=== PATIENT | female | born 1965 | race Caucasian/White ===

== ENCOUNTER 2016-08-07 17:07 | Inpatient (IN) | payer OTHER ==
--- NOTE | 2016-08-07 17:23 | CPEKG ---
Heart Rate: 108 RR Interval: 556 P-R Interval: 164 QRSD Interval: 78 QT Interval: 336 QTC Interval: 451 P [place]: 59 QRS [place]: 141 T Wave [place]: -11 EKG Severity - ABNORMAL ECG - EKG Impression: SINUS TACHYCARDIA EKG Impression: LEFT POSTERIOR FASCICULAR BLOCK EKG Impression: NONSPECIFIC T ABNORMALITIES, ANTERIOR LEADS Electronically Signed By: Eli Downs 07-Aug-2016 21:41:32
[2016-08-07] MEDS ORDERED: NS 1,000 ML BAG *FOR SEPSIS ORDER SET ONLY IV ONE (17:33)
--- NOTE | 2016-08-07 17:35 | EDPHY ---
H & P Time Seen by Provider: 08/07/16 17:20 HPI/ROS: CHIEF COMPLAINT: Hypoxia HISTORY OF PRESENT ILLNESS: The patient is a 51-year-old female sent from Dr. Chelo Hardwick's office for hypoxia. She is also hypotensive and tachycardic at triage. She has a history of recently over coming C difficile with persistent diarrhea as well as thrombophlebitis were treated with anti-inflammatories only. She states that over the last couple of weeks she has become progressively short of breath. She did have a severe Charley horse in her left thigh 4 days ago. She denies having any chest pain. She denies fevers or cough. She denies abdominal pain. She states that her chronic diarrhea stopped Last night. she does not have any history of cardiac or pulmonary disease. REVIEW OF SYSTEMS: Constitutional: Generally weak EENTM: denies: blurred vision, double vision, nose congestion Respiratory: See HPI Cardiac: denies: chest pain, irregular heart rate, lightheadedness, palpitations Gastrointestinal/Abdominal: denies: abdominal pain, diarrhea, nausea, vomiting, blood streaked stools Genitourinary: denies: dysuria, frequency, hematuria, pain Musculoskeletal: denies: joint pain, muscle pain Skin: denies: lesions, rash, jaundice, bruising Neurological: denies: headache, numbness, paresthesia, tingling, dizziness, weakness Hematologic/Lymphatic: denies: blood clots, easy bleeding, easy bruising Immunologic/allergic: denies: HIV/AIDS, transplant EXAM: GENERAL: Pale, dehydrated HEAD: Atraumatic, normocephalic. EYES: Pupils equal round and reactive to light, extraocular movements intact, sclera anicteric, conjunctiva are normal. ENT: Dry mucous membranes, TMs normal, nares patent, oropharynx clear without exudates. NECK: Normal range of motion, supple without lymphadenopathy or JVD. LUNGS: Breath sounds clear to auscultation bilaterally and equal. No wheezes rales or rhonchi. HEART: Regular rate and rhythm without murmurs, rubs or gallops. ABDOMEN: Soft, nontender, normoactive bowel sounds. No guarding, no rebound. No masses appreciated. BACK: No CVA tenderness, no spinal tenderness, step-offs or deformities EXTREMITIES: Normal range of motion, no pitting or edema. No clubbing or cyanosis. NEUROLOGICAL: Cranial nerves II through XII grossly intact. Normal speech, normal gait. 5/5 strength, normal movement in all extremities, normal sensation PSYCH: Normal mood, normal affect. SKIN: Warm, dry, normal turgor, no visible rashes or lesions. Source: Patient, Family, RN/MD, Old records Exam Limitations: No limitations - Personal History Tetanus Vaccine Date: < 10 years - Medical/Surgical History Hx Asthma: No Hx Chronic Respiratory Disease: No Hx Diabetes: No Hx Cardiac Disease: No Hx Renal Disease: No Hx Cirrhosis: No Hx Alcoholism: No Hx HIV/AIDS: No Hx Splenectomy or Spleen Trauma: No Other PMH: benign lumpectomy. low iron. c dif - Family History Significant Family History: Hypertension - Social History Smoking Status: Former smoker Alcohol Use: None Drug Use: None Constitutional: Initial Vital Signs Temperature (C) 36.6 C 08/07/16 17:39 Heart Rate 109 H 08/07/16 17:39 Respiratory Rate 25 H 08/07/16 17:39 Blood Pressure 96/60 L 08/07/16 17:39 O2 Sat (%) 70 L 08/07/16 17:39 O2 Delivery Mode Oxymask O2 (L/minute) 15 Allergies/Adverse Reactions: No Known Allergies Allergy (Verified 04/24/16 12:33) Home Medications: Medication Instructions Recorded ALPRAZolam [Xanax 0.5 MG (*)] 0.5 mg PO PRN PRN 02/21/16 Herbals/Supplements -Info Only 1 ea PO DAILY 02/21/16 Multivitamins [Multivitamin (*)] 1 each PO DAILY 02/21/16 Prochlorperazine Maleate 10 mg PO TID PRN 08/07/16 [Compazine 10mg (*)] Medical Decision Making - Diagnostics EKG Interpretation: An EKG obtained and was read and documented in trace view. Please see trace view for full reading and report. Sinus tachycardia, diffuse T-wave inversions consistent with right heart strain. Imaging: X-ray: chest x-ray was obtained. I viewed the images myself on the PACS system. My interpretation of the images is: Cantrell's hump. The radiologist interpretation is pulmonary ischemic wedge. Results: CT scan of the chest angiogram was obtained. The results of the study are bilateral central pulmonary embolism with infarction. The study was read by Dr. Rickey Richards. I viewed the images myself on the PACS system. Procedures: Procedure: Ultrasound guidance: Using the linear probe covered in a sterile sheath, a short axis of the vein was obtained. The vein was completely compressible and was identified as separate from the adjacent non-compressible arterial structure. Under real-time guidance, the introducer needle was observed up to the vein, and then punctured it. These images were saved on the database. Central line placement: The indication for the procedure was hypotension, need for tPA. After verbal informed consent from patient; the risks were explained including bleeding, infection, and collapsed lung. Maximal sterile barrier technique was uses including cap, gown, sterile gloves, large sheet, hand washing and chlorhexidine prep. The area anesthetized with 1% lidocaine. The right IJ was punctured with a 19 gauge finder needle, then a wire introducer was placed, a triple-lumen was placed using Seldinger technique. There were no complications. Blood return low pressure, dark blood. The patient tolerated procedure well. CXR results: Line in good place as interpreted by myself. Radiologist interpretation is pending. The procedure was performed by myself. ED Course/Re-evaluation: 5:59 p.m. the patient needs severe sepsis criteria because of her lactate. She is receiving her fluid bolus currently. She is refusing a central line at this point. We will see how her vital signs look after her fluid bolus. We are looking for a 2nd IV. 6:10 p.m. after reviewing the patient's x-ray became concerned for PE and this is confirmed by radiology. I spoke with Dr. Emeka Singleton. We plan to administer tPA. Since the patient is pseudo stable we will attempt to obtain a CT scan 1st. She remains tachycardic at 110 and hypotensive 90/60. She is mentating well and breathing comfortably on face mask. 7:20 p.m. we discussed the risks and benefits of tPA. She and her friends agree with administration. She understands the risk of hemorrhagic stroke. I do this think that this is a life-saving measure to treat her bilateral central PEs. Dr. Emeka Singleton agrees. She does not have any hard contraindications. Differential Diagnosis: Partial list of the Differential diagnosis considered include but were not limited to; pulmonary lungs line, pneumonia, sepsis and although unlikely based on the history and physical exam, I also considered acute coronary disease , arrhythmia, dissection. Critical Care Time: I spent a total of 45 minutes of critical care time in obtaining history, performing a physical exam, bedside monitoring of interventions, collecting and interpreting tests and discussion with consultants but not including time spent performing procedures. - Data Points Laboratory Results: Laboratory Results 08/07/16 17:31 08/07/16 17:31 08/07/16 17:31 WBC 14.96 H 10^3/uL (3.80-9.50) RBC 3.47 L 10^6/uL (4.18-5.33) Hgb 10.8 L g/dL (12.6-16.3) Hct 33.2 L % (38.0-47.0) MCV 95.7 fL (81.5-99.8) MCH 31.1 pg (27.9-34.1) MCHC 32.5 g/dL (32.4-36.7) RDW 17.2 H % (11.5-15.2) Plt Count 338 10^3/uL (150-400) MPV 10.8 fL (8.7-11.7) Neut % (Auto) 76.0 H % (39.3-74.2) Lymph % (Auto) 14.6 L % (15.0-45.0) [place] % (Auto) 8.6 % (4.5-13.0) Eos % (Auto) 0.0 L % (0.6-7.6) Baso % (Auto) 0.4 % (0.3-1.7) Nucleat RBC Rel Count 0.1 % (0.0-0.2) Absolute Neuts (auto) 11.37 H 10^3/uL (1.70-6.50) Absolute Lymphs (auto) 2.18 10^3/uL (1.00-3.00) Absolute Monos (auto) 1.29 H 10^3/uL (0.30-0.80) Absolute Eos (auto) 0.00 L 10^3/uL (0.03-0.40) Absolute Basos (auto) 0.06 10^3/uL (0.02-0.10) Absolute Nucleated RBC 0.02 H 10^3/uL (0-0.01) Immature Gran % 0.4 % (0.0-1.1) Immature Gran # 0.06 10^3/uL (0.00-0.10) PT 16.7 H SEC (12.0-15.0) INR 1.35 H (0.83-1.16) APTT 27.8 SEC (23.0-38.0) VBG Lactic Acid 3.9 H mmol/L (0.7-2.1) Sodium 136 mEq/L (134-144) Potassium 4.1 mEq/L (3.5-5.2) Chloride 104 mEq/L (97-110) Carbon Dioxide 20 L mEq/l (22-31) Anion Gap 12 mEq/L (8-16) BUN 11 mg/dL (7-23) Creatinine 0.7 mg/dL (0.6-1.0) Estimated GFR > 60 Glucose 110 H mg/dL (70-100) Calcium 7.6 L mg/dL (8.5-10.4) Total Bilirubin 0.9 mg/dL (0.1-1.4) Medications Given: Discontinued Medications Alteplase, Recombinant (Activase) 100 mg IVP EDNOW ONE Stop: 08/07/16 18:15 Last Admin: 08/07/16 19:12 Dose: Not Given Alteplase, Recombinant 100 mg/ (Sodium Chloride) 200 mls @ 100 mls/hr IV EDNOW ONE PRN Reason: 50 MG/HR Stop: 08/07/16 20:41 Last Admin: 08/07/16 19:30 Dose: 200 mls Sodium Chloride (Ns *For Sepsis Order Set Only*) 0 ml IV EDNOW ONE PRN Reason: Protocol Stop: 08/07/16 17:34 Last Admin: 08/07/16 18:21 Dose: 2,070 ml Departure - Departure Disposition: [facility] Acute Clinical Impression: Dehydration Pulmonary embolism Qualifiers: Pulmonary embolism type: other Chronicity: acute Acute cor pulmonale presence: with acute cor pulmonale Qualifier Code: (I26.09) Other pulmonary embolism with acute cor pulmonale Condition: Fair
[2016-08-07 17:46] LABS: % IMMATURE GRANULYOCYTES 0.4 % (0.0-1.1); ABSOLUTE IMMATURE GRANULOCYTES 0.06 10^3/uL (0.00-0.10); ABSOLUTE NRBC COUNT 0.02 10^3/uL (0-0.01); ADD DIFF? NO; ADD MORPH? NO; ADD SCAN? NO; ATYPICAL LYMPHOCYTE FLAG 40 (0-99); FRAGMENT RBC FLAG 0 (0-99); HEMATOCRIT 33.2 % (38.0-47.0); HEMOGLOBIN 10.8 g/dL (12.6-16.3); LEFT SHIFT FLG 0 (0-99); LIPEMIA HEMOLYSIS FLAG 80 (0-99); MEAN CELL HEMOGLOBIN 31.1 pg (27.9-34.1); MEAN CELL HEMOGLOBIN CONCENTR. 32.5 g/dL (32.4-36.7); MEAN CELL VOLUME 95.7 fL (81.5-99.8); MEAN PLATELET VOLUME 10.8 fL (8.7-11.7); NRBC-AUTO% 0.1 % (0.0-0.2); PLATELET CLUMPS FLAG 10 (0-99); PLATELET COUNT 338 10^3/uL (150-400); RED BLOOD CELL COUNT 3.47 10^6/uL (4.18-5.33); RED CELL DISTRIBUTION WIDTH 17.2 % (11.5-15.2)
[2016-08-07 17:52] LABS: INR 1.35 (0.83-1.16); PROTIME(PATIENT) 16.7 SEC (12.0-15.0)
[2016-08-07 17:53] LABS: APTT 27.8 SEC (23.0-38.0)
[2016-08-07 18:06] LABS: ANION GAP 12 mEq/L (8-16); BILIRUBIN,TOTAL 0.9 mg/dL (0.1-1.4); CALCIUM 7.6 mg/dL (8.5-10.4); CARBON DIOXIDE 20 mEq/l (22-31); CHLORIDE 104 mEq/L (97-110); CREATININE 0.7 mg/dL (0.6-1.0); GLOMERULAR FILTRATION RATE > 60; GLUCOSE 110 mg/dL (70-100); POTASSIUM 4.1 mEq/L (3.5-5.2); SODIUM 136 mEq/L (134-144)
--- NOTE | 2016-08-07 18:12 | DX ---
Chest Single View August 07, 2016 at 1759 hours History: Meets sepsis criteria, suspected infection, hypoxia, irregular heartbeat, previous deep ruddy ous thrombosis. Comparison: January 2016. Findings: In the lateral aspect of the right midlung field, there is a peripheral slightly wedge-sha ped 3-cm opacity, which is new since previous studies. The left lung appears clear. The heart is no rmal in size. No pleural effusion or pneumothorax. Impressions 1. Right midlung field lateral pleural-based wedge-shaped opacity, which may represent pulmonary inf arct or pneumonitis. 2. Recommend CT chest, with contrast . Findings and recommendations discussed with Emergency Department physician, Dr. Cao, at 1800 hour s on August 07, 2016. Final report concurs with initial preliminary interpretation.
[2016-08-07] MEDS ORDERED: ALTEPLASE 50 MG/50 ML VIAL IVP ONE (18:14)
[2016-08-07] MEDS ORDERED: IOPAMIDOL (ISOVUE 370) 75 ML BTL IV ONE (18:32)
[2016-08-07 18:40] LABS: LACGHOST ORDER
[2016-08-07] MEDS ORDERED: ALTEPLASE 100 MG in NS 100 ML IV ONE (18:42)
--- NOTE | 2016-08-07 18:53 | DX ---
Portable Chest at 1840 hours History: Check central line placement. Comparison: Portable chest same day at 1759. Findings: There has been interval placement of a right internal jugular central venous catheter with the tip at the cavoatrial junction good position. Focal peripheral consolidation likely in the super olateral right middle lobe is unchanged. There is no pneumothorax. Heart size is normal. The bones ar e stable. Impression: 1. Right internal jugular central venous catheter in good position with no visible complication. 2. Stable focal right middle lobe consolidation, which could be related to pneumonia, infarct, or les s likely mass. The patient is scheduled for CT chest.
[2016-08-07] MEDS ORDERED: ONDANSETRON DISINTEGRATING 4 MG TAB PO PRN (19:38)
[2016-08-07] MEDS ORDERED: ONDANSETRON 4 MG/2 ML VIAL IVP PRN (19:38)
[2016-08-07] MEDS ORDERED: ACETAMINOPHEN 325 MG TAB PO PRN (19:38)
--- NOTE | 2016-08-07 19:54 | CT ---
CT Pulmonary Angiogram Clinical Indications: Chest pain, hypoxia, and shortness of breath in a 51-year-old female; evaluate for pulmonary embolic disease. Technique: Thinly collimated multidetector helical CT imaging was performed through the chest while 90 mL of Isovue-370 were injected intravenously, without complication. The images were obtained at 4 -mm thickness and reconstructed at 1.5-mm thickness. Sagittal and coronal reconstructions were perfo rmed. The examination is reviewed on the workstation by the interpreting physician at multiple windo w/level settings. Dose reduction techniques were utilized. Findings Chest: There is a moderate right pleural effusion. There is a focal wedge-shaped area of alveolar o pacification in the lateral aspect of the right middle lobe, which may represent an evolving pulmonar y infarct. Additionally, there are other smaller scattered areas of peripheral opacities seen bilate rally. Heart size is normal. A right internal jugular catheter is seen, with the tip projecting machelle r the cavoatrial junction. No pericardial effusion is seen. Equivocally enlarged hilar and mediasti nal lymph nodes are noted. There are no masses or noncalcified pulmonary nodules. There is diffuse low-attenuation of the liver suggesting steatosis. CT Pulmonary Angiogram: The pulmonary arterial system is well opacified. Extensive intraluminal fi lling defects are seen involving central and more peripheral pulmonary arteries bilaterally consisten t with extensive pulmonary embolic disease. The thoracic aorta has a normal contour, without evidenc e of aneurysm or dissection. Impressions 1. Extensive bilateral pulmonary embolic disease. 2. Alveolar opacities bilaterally, most prominent in the right middle lobe, could reflect evolving p ulmonary infarcts. 3. Suspect hepatic steatosis. 4. See above report for additional findings. A preliminary report was called to Dr. Kendall Cao at 1930 hours in the Emergency Department.
--- NOTE | 2016-08-07 20:39 | GHP ---
[f rep st] HISTORY AND PHYSICAL DATE OF ADMISSION: 08/07/2016 CHIEF COMPLAINT: Shortness of breath. HISTORY OF PRESENT ILLNESS: This is a 51-year-old female, sent in by her primary care physician, for shortness of breath. She tells me this has been going on for awhile, meaning months. She has no chest pain. She notes that she had a "charley horse" in her left leg a few days ago, where everything felt numb below her knee. This has since resolved. She otherwise notes mild swelling in her bilateral legs, which has also been present for some time. In her primary care physician's office, she was found to have an oxygen saturation of 62% on room air with significant tachycardia rates around 120 or 130. PAST MEDICAL/SURGICAL HISTORY: 1. History of colitis. She has been treated for C difficile, as well as parasite infections. This was associated with initially significant bleeding requiring a transfusion last summer. 2. Anal fissures, as well as fistula, status post repair by Dr. Aburto. 3. Anemia. MEDICATIONS: Please see medication reconciliation. ALLERGIES: None. FAMILY HISTORY: Crohn disease and heart failure. SOCIAL HISTORY: She never used drugs, alcohol, or tobacco. 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 REVIEW OF SYSTEMS: A 10-point review of systems is conducted and is negative except per HPI. PHYSICAL EXAM: VITAL SIGNS: Blood pressure is 91/60, heart rate initially was 109, initial respirations were 25, saturating at 70% on 4 L. Temperature is 36.6. GENERAL: The patient is a pleasant female, who appears in moderate respiratory distress with a face mask. HEENT: Shows head to be normocephalic, atraumatic. CARDIOVASCULAR: Regular rate and rhythm. No murmurs, rubs, or gallops. PULMONARY: Shows her to be in respiratory distress. Otherwise, she is clear to auscultation bilaterally. ABDOMEN: Soft, nontender, nondistended. SKIN: No rash. EXAM: There is no [place]. NEUROLOGIC EXAM: Shows her to be alert and oriented x3. She is moving all extremities. PSYCHIATRIC EXAM: Shows normal mood and affect. LABS: White count is 14.9. INR is 1.35. Lactate 3.9. Basic metabolic panel shows a bicarbonate of 20, otherwise relatively unremarkable. DATA: 1. EKG, which I personally viewed and interpreted, shows she has a right axis deviation. She has inverted T-waves diffusely in the precordial leads. 2. Chest x-ray, which I reviewed and interpreted, shows likely Cantrell hump in the right lung. 3. CT pulmonary angiogram shows extensive bilateral pulmonary embolic disease. I discussed this with both Dr. Cao, as well as Dr. Hardwick. With Dr Cao, we discussed tPA treatment. IMPRESSION AND PLAN: This is a 51-year-old female, critically ill from a pulmonary embolus. 1. Pulmonary embolus: Agree with tPA, given the severity of her clinical presentation. This is being administered right now. I discussed risks and benefits of this, including bleeding in the setting of having had recent colon bleeding about 6 months ago. Also discussed intraparenchymal bleeding. She wishes to proceed. Once this is done, we will need to check a PTT, and when this is lower than 2 times the upper limit of normal, we will start a heparin drip. She will be monitored closely in the ICU. Pulmonology will consult. 2. Nonspecific colitis: She is due for colonoscopy at some point, which she has refused in the past. We will follow her symptoms and see how she does with the above-mentioned disease. 3. Anemia: Hemoglobin is 10.8. This is at her baseline. CODE STATUS: Full. TIME: I spent 60 minutes of floor critical care time caring for this patient. /[id number]/MODL MTDD
[2016-08-07] MEDS ORDERED: NS BOLUS 1000 ML (Wide open) IV ONE (22:00)
[2016-08-07 22:07] LABS: INR 1.62 (0.83-1.16); PROTIME(PATIENT) 19.3 SEC (12.0-15.0)
[2016-08-07] MEDS: NS 1,000 ML IV SCH (22:22)
[2016-08-07 22:24] LABS: TROPONIN I 0.112 ng/mL (0-0.034)
[2016-08-07] MEDS ORDERED: NS 1,000 ML IV ONE (22:32)
[2016-08-07] MEDS: HEPARIN/DEXTROSE 500 ML IV SCH (23:00)
[2016-08-08] MEDS ORDERED: DOBUTamine/DEXTROSE 250 ML IV SCH (01:00)
[2016-08-08] MEDS: NOREPINEPHRINE BITARTRATE 4 MG in D5W 500 ML IV SCH ×4 (01:44→20:38)
[2016-08-08 05:39] LABS: % IMMATURE GRANULYOCYTES 0.8 % (0.0-1.1); ADD DIFF? NO; ADD MORPH? NO; ADD SCAN? NO; ATYPICAL LYMPHOCYTE FLAG 50 (0-99); FRAGMENT RBC FLAG 0 (0-99); HEMATOCRIT 24.6 % (38.0-47.0); HEMOGLOBIN 7.7 g/dL (12.6-16.3); LEFT SHIFT FLG 0 (0-99); LIPEMIA HEMOLYSIS FLAG 80 (0-99); MEAN CELL HEMOGLOBIN 30.8 pg (27.9-34.1); MEAN CELL HEMOGLOBIN CONCENTR. 31.3 g/dL (32.4-36.7); MEAN CELL VOLUME 98.4 fL (81.5-99.8); MEAN PLATELET VOLUME 10.3 fL (8.7-11.7); PLATELET CLUMPS FLAG 20 (0-99); PLATELET COUNT 278 10^3/uL (150-400); RED CELL DISTRIBUTION WIDTH 17.1 % (11.5-15.2)
[2016-08-08 05:55] LABS: ANION GAP 5 mEq/L (8-16); CALCIUM 6.3 mg/dL (8.5-10.4); CARBON DIOXIDE 20 mEq/l (22-31); CHLORIDE 113 mEq/L (97-110); CREATININE 0.6 mg/dL (0.6-1.0); GLOMERULAR FILTRATION RATE > 60; GLUCOSE 104 mg/dL (70-100); POTASSIUM 3.3 mEq/L (3.5-5.2); SODIUM 138 mEq/L (134-144)
[2016-08-08 06:07] LABS: TROPONIN I 0.103 ng/mL (0-0.034)
[2016-08-08] MEDS: HEPARIN 10,000 UNIT/10 ML MDV IVP PRN ×3 (06:11→18:17)
[2016-08-08] MEDS: NS 1,000 ML IV SCH ×3 (07:45→23:31)
--- NOTE | 2016-08-08 09:53 | ECHO ---
[id number] + + [address] : : [place] [address] : : [phone] + + Adult Echocardiographic Report + ----+ :Name: EROS MOORE JStudy Date: 08/08/2016 12:02 AM : : Hospital Admission Number: [id number] Location: 257: :: 1965 Gender: Female : :Age: 51 yrs Race: WH : :Reason For Study: Hypotension/PE : + ----+ MMode/2D Measurements & Calculations IVSd: 0.64 cm LVIDd: 4.0 cm FS: 49.5 % Ao root diam: 3.4 cm LVPWd: 0.98 cm LVIDs: 2.0 cm EDV(Teich): 71.7 ml ESV(Teich): 13.4 ml EF(Teich): 81.3 % Normal Measurement Values: + + :LVIDd (3.5-5.7cm) IVSd (0.6-1.1cm) LVPWd (0.6-1.1cm) Aortic Root (2.0-3.7cm)Left Atrium (1.5-4.0cm): :LV Vol(d) (76-115ml) LV Vol(s) (29-48ml) Ejec Fraction (50-65%)PV Dimitris (0.6- 1.2m/s) TV Dimitris (0.4-1.0m/s) : :MV E Dimitris (0.8-1.0m/s)MV A Dimitris (0.3-1.0m/s)LVOT Dimitris (0.7-1.2m/s) Asc Ao Dimitris ( 0.9-1.8m/s) : + + Doppler Measurements & Calculations MV E max dimitris: 59.7 cm/sec Ao V2 max: 131.7 cm/sec TR max dimitris: 283.7 cm/sec MV A max dimitris: 75.0 cm/sec Ao max P.9 mmHg TR max P.2 mmHg MV E/A: 0.80 RAP systole: 10.0 mmHg RVSP(TR): 42.2 mmHg Left Ventricle The left ventricle is normal in size. There is normal left ventricular wall thickness. The left ventricle is hyperdynamic. E/a wave reversal. Flattened septum is consistent with RV pressure/volume overload. Right Ventricle The right ventricle is moderately dilated. Atria The left atrial size is normal. The right atrium is moderately dilated. The interatrial septum is intact with no evidence for an atrial septal defect. Mitral Valve The mitral valve is normal in structure and function. There is no evidence of mitral valve prolapse. There is no mitral valve stenosis. Tricuspid Valve Normal tricuspid valve. Right ventricular systolic pressure is 47-52mmHg. There is Doppler evidence for mild pulmonary hypertension. There is mild to moderate tricuspid regurgitation. Aortic Valve The aortic valve is trileaflet. The aortic valve opens well. There is no aortic stenosis. There is no aortic insufficiency. Pulmonic Valve The pulmonic valve is normal in structure and function. Trace pulmonic valvular regurgitation. Great Vessels The aortic root is normal size. Pericardium/Pleural Trivial anterior pericardial effusion. Conclusion A complete two-dimensional transthoracic echocardiogram was performed (2D, M-mode, Doppler and color flow Doppler). The patient has a dilated IVC. The left ventricle is hyperdynamic. Flattened septum is consistent with RV pressure/volume overload. The right ventricle is moderately dilated. The right atrium is moderately dilated. There is mild to moderate tricuspid regurgitation. There is Doppler evidence for mild pulmonary hypertension. Right ventricular systolic pressure is 47-52mmHg. Trace pulmonic valvular regurgitation. Trivial anterior pericardial effusion Final Reading Physician: Elham Patel signed on 08/08/2016 09:52 AM Ordering Physician: Emeka Singleton Performed By: Arianna Garcia RDCS
[2016-08-08 11:18] LABS: HEMATOCRIT 24.5 % (38.0-47.0); HEMOGLOBIN 8.1 g/dL (12.6-16.3)
--- NOTE | 2016-08-08 12:50 | GCON ---
[f rep st] CONSULTATION PULMONARY CRITICAL CARE CONSULTATION REASON FOR CONSULTATION: Pulmonary emboli. HISTORY: The patient is a 51-year-old who presented to her primary care physician yesterday with dinh rtness of breath and weakness. Saturations were in the 60s. [facility] angiogram of the chest showed bilateral moderate to large volume pulmonary embolic disease . She was hypoxemic and hypotensive. She was started on fluids and given tPA, 100 mg over 2 hours, in the emergency department. She was transitioned subsequently to heparin and admitted to the intens lima care unit. She has required oxygen, although in decreasing amounts. She required pressor therap y and is on Levophed. She has some left-sided chest pain which is mild with inspiration. Her case w as discussed with Interventional Radiology. It was felt that she did not have enough clot burden to benefit from angiolysis or further directed tPA. A cardiac echo was done, which does show evidence o f pulmonary hypertension and right ventricular strain. Estimated right ventricular systolic pressure s are 50. Previously, the patient has not had any history of lung disease. Saturations by her recollection whe n she has been seen previously in office have always been in the 90s. She has had some cramping sens ation primarily in the left leg a number of days ago. She has not noticed any increased swelling of the left leg compared to the right; however, she has had some lower extremity edema over the last yea r or so. PAST MEDICAL HISTORY: Relatively unremarkable until this last year. She has a history of C difficil e colitis, associated anemia, anal fissures and fistula, which required surgical repair. MEDICATIONS: On admission included Compazine, Xanax, multivitamins, and herbal supplements. 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 She did smoke in the past. Signific ant alcohol is negative. FAMILY HISTORY: History of Crohn disease. REVIEW OF SYSTEMS: A 10-point review of systems is negative. There is no history of previous heart disease or lung disease, pulmonary hypertension, thromboembolic disease, etc. She has had some episo dionna of superficial thrombophlebitis; however, these were associated with IV catheters. However, she also had a superficial thrombophlebitis of the right calf. No deep vein thrombosis has previously be en documented. PHYSICAL EXAMINATION: GENERAL: Reveals a woman who is on oxygen, sitting up in a chair. She is terry te pale and appears somewhat weak. VITAL SIGNS: Blood pressure is 94/59, on Levophed, heart rate is 85 with sinus rhythm on the monitor, respiratory rate is 25. On 6 L of oxygen by simple mask, satur ations are 97%. HEENT: Unremarkable for lymphadenopathy or thyromegaly. Jugular venous pressure is difficult to estimate. A triple-lumen catheter is present in the right neck. CVP is currently 11. CHEST: Reveals a soft rub with inspiration over the right upper chest. There are no significant ra les. Breath sounds are diminished as are excursions. There are no wheezes, no rhonchi. Central air ways are somewhat coarse. HEART: Regular in rate and rhythm. P2 is increased. There is a soft sys tolic murmur. ABDOMEN: Modestly overweight, soft, nontender. No masses are appreciated. EXTREMITI ES: Lower extremities are remarkable for trace to 1+ edema, possibly slightly greater on the left th an the right. Both hands are quite edematous. LABORATORY DATA: CT scan of the chest is as outlined above, showing bilateral pulmonary embolic dise ase involving central and peripheral arteries bilaterally. Right middle lobe infiltrate is present, query possible infarct. Cardiac echo is as described above, with right ventricular pressures estimated to be 50. There is ri ght ventricular dilatation with changes consistent with pressure/volume overload. The right atrium i s also dilated. Tricuspid regurgitation is present. Left ventricular function appears normal, hyper dynamic. White blood cell count is 13,100, hematocrit 24.5, down from 32 on admission. Platelets are normal. Lactate was 1.0, down from 3.9 on admission. Sodium is 138, potassium 3.3, BUN 9, with a creatinine of 0.6. CO2 is 20. BNP is elevated at 9,370. Troponins are nonspecifically positive at 0.1. Calc ium is 6.3. C difficile toxin is negative. ASSESSMENT: 1. Pulmonary emboli. She has relatively large volume of clot. She is status post lytic therapy and is being treated with heparin. She does have associated pulmonary hypertension, hypoxemia, and hypo tension requiring pressor therapy. CVP currently is 11 and appropriate. It appears that her pulmona ry embolic disease is likely in part chronic, part acute. She has had symptoms over the last 1 month or so. The etiology for her clots may be related to the lower extremities. A venous Doppler ultraso und will be ordered. Hypercoagulability panel needs to be obtained at some point. This was not done on admission. 2. History of colitis, secondary to Clostridium difficile within the last year. She has no evidence of this currently. 3. Anemia, in part secondary to previous blood loss. Other etiologies such as chronic disease, etc. , may be playing a role? PLAN/RECOMMENDATIONS: The patient will be kept in the intensive care unit. Heparin drip per weight- based protocol will be maintained. Levophed will be used as needed to keep mean arterial pressure 60 -65 or greater. Laboratory will be followed. A hypercoagulability panel will be requested. Oxygen saturations will be maintained in the upper 80s or low 90s. Appropriate pain management will be prov ided as needed. All of the above was discussed with the patient, nursing, to some extent the patient's mother, and [facility] multi disciplinary team. I also discussed her case with the admitting hospitalist, Dr. Singleton . /[id number]/MODL
[2016-08-08] MEDS: HEPARIN/DEXTROSE 500 ML IV SCH (15:29)
--- NOTE | 2016-08-08 17:55 | HOSPPROG ---
Hospitalist Progress Note Assessment/Plan: DIAGNOSIS: # ACUTE MASSIVE PULMONARY EMBOLUS WITH HYPOTENSION AND LACTIC ACIDOSIS; SUSPECT THERE HAS BEEN PE AND DVT GOING ON FOR MONTHS # STATUS POST TPA WITHOUT COMPLICATION # ELEVATED TROPONIN DUE TO THE ABOVE # PULMONARY HYPERTENSION # CHRONIC DIARRHEA, WITH HIGH SUSPICION FOR CHRONIC INFLAMMATORY BOWEL DISEASE UNDIAGNOSED DUE TO PATIENT'S UNWILLINGNESS TO HAVE AN ENDOSCOPY SO FAR # ANEMIA, SUSPECT DUE TO CHRONIC DISEASE RELATED TO HER BOWEL ILLNESS #SEVERE PROTEIN CALORIE MALNUTRITION PLANS: -I reviewed the patient's condition and care plan and her medical history in detail with Dr. Chelo Hardwick her primary care physician today as well as with Dr. Talat Higuera -Continue heparin and transition to Coumadin -she should have lifelong anticoagulation -At some point she will need endoscopic evaluation for her bowel disease. She has resisted this so far. She is now more agreeable. I will review the timing of this with sherry Higuera and marcos off. It may potentially be useful to consider and a sigmoidoscopy at this time and an eventual full colonoscopy at a future date. I have reviewed the patient's care plan and condition in detail with doctors Talat Higuera and Chelo Hardwick Patient also seen on multidisciplinary rounds. I have also discussed all the above in detail with the patient's family her here at the bedside with her newly SUBJECTIVE: Still with dyspnea and pleuritic pain, no signs of bleeding Still with diarrhea OBJECTIVE Vitals reviewed: Still with tachycardia and tachypnea blood pressure is a bit low ticket taker, my personal review: Sinus rhythm with tachycardia Exam: alert oriented skin warm dry color ok good distal capillary refill in digits resps not labored lungs clear BSs heart regular abd soft nondistended nontender, bowel sounds present limbs warm, no edema iv site ok I have reviewed reviewed the patient's CT chest images from the ER in detail personally and agree with diagnosis. Objective: Vital Signs Temp Pulse Resp BP Pulse Ox 37.0 C 101 H 30 H 109/62 93 08/08/16 17:00 08/08/16 17:00 08/08/16 17:00 08/08/16 17:00 08/08/16 17:00 Laboratory Results 08/08/16 11:05 08/08/16 05:20 08/07/16 08/08/16 08/09/16 06:59 06:59 06:59 Intake Total 5326 3084 Balance 5326 3084 PT 19.3 SEC (12.0-15.0) H 08/07/16 21:50 INR 1.62 (0.83-1.16) H 08/07/16 21:50 ICD10 Worksheet Patient Problems: Problems Problem Status Diagnosed Dehydration Acute Pulmonary embolism Acute Anemia Acute C. difficile diarrhea Acute 04/21/16 Superficial thrombophlebitis Acute
[2016-08-08] MEDS: HYDROmorphONE/DILAUDID 1 MG/ML SYR IVP PRN (21:52)
[2016-08-09] MEDS: NOREPINEPHRINE BITARTRATE 4 MG in D5W 500 ML IV SCH ×4 (02:57→23:56)
[2016-08-09 05:16] LABS: % IMMATURE GRANULYOCYTES 0.6 % (0.0-1.1); ABSOLUTE IMMATURE GRANULOCYTES 0.08 10^3/uL (0.00-0.10); ABSOLUTE NRBC COUNT 0.02 10^3/uL (0-0.01); ADD DIFF? NO; ADD MORPH? NO; ADD SCAN? NO; ATYPICAL LYMPHOCYTE FLAG 60 (0-99); FRAGMENT RBC FLAG 0 (0-99); HEMATOCRIT 25.4 % (38.0-47.0); HEMOGLOBIN 8.2 g/dL (12.6-16.3); LEFT SHIFT FLG 0 (0-99); LIPEMIA HEMOLYSIS FLAG 80 (0-99); MEAN CELL HEMOGLOBIN 31.1 pg (27.9-34.1); MEAN CELL HEMOGLOBIN CONCENTR. 32.3 g/dL (32.4-36.7); MEAN CELL VOLUME 96.2 fL (81.5-99.8); MEAN PLATELET VOLUME 10.3 fL (8.7-11.7); NRBC-AUTO% 0.2 % (0.0-0.2); PLATELET CLUMPS FLAG 0 (0-99); PLATELET COUNT 288 10^3/uL (150-400); RED BLOOD CELL COUNT 2.64 10^6/uL (4.18-5.33); RED CELL DISTRIBUTION WIDTH 16.8 % (11.5-15.2)
[2016-08-09] MEDS: NS 1,000 ML IV SCH ×2 (08:03→18:32)
[2016-08-09] MEDS: HEPARIN/DEXTROSE 500 ML IV SCH ×2 (08:03→23:56)
[2016-08-09] MEDS ORDERED: ALBUMIN 25% 200 ML IV ONE ×2 (08:07→13:01)
--- NOTE | 2016-08-09 12:44 | US ---
Bilateral Lower Extremity Venous Duplex Doppler Studies Clinical Indications: 51-year-old female inpatient with the recent diagnosis of extensive bilateral p ulmonary artery embolic disease. Evaluate for deep venous thrombosis. Technique: A high-frequency transducer was used for compression imaging and Doppler study of the deep veins of both legs from the upper calves to the groins. Pulsed Doppler and color Doppler were utiliz ed, along with various maneuvers to assess flow in the deep veins. Comparison Study: Right leg venous Doppler ultrasound dated April 16, 2016 which revealed sapheno us vein superficial thrombophlebitis in the right calf. Findings: Right Leg: The deep veins of the groin, thigh, knee, and upper calf are well-displayed, and are norm ally compressible, with the exception of the distal femoral vein in the medial thigh, above the level of the adductor canal, where there is some segmental nonocclusive thrombus. There is noncompressibil ity of the greater saphenous vein in the midcalf. Above this level, it is patent. The spectral wavefo cris are notable for some pulsatile venous flow, suggestive of elevated right-sided heart pressures. T he popliteal fossa is unremarkable. Left Leg: The deep veins of the groin, thigh, knee, and upper calf are well-displayed, and normally compressible. Doppler flow patterns are notable for some pulsatile venous flow, reflecting some elev ated right-sided heart pressures. There is no evidence of deep venous thrombosis. There is normal co mpression of the greater saphenous vein, without superficial thrombosis. The popliteal fossa is unrem arkable. Impression: 1. Segmental nonocclusive thrombus identified in the distal right femoral vein, as well as thrombosis of the midcalf portion of the right greater saphenous vein. 2. There is no evidence of deep or superficial venous thrombosis in the left lower extremity.
--- NOTE | 2016-08-09 13:00 | HOSPPROG ---
Hospitalist Progress Note Assessment/Plan: DIAGNOSIS: # ACUTE MASSIVE PULMONARY EMBOLUS WITH HYPOTENSION AND LACTIC ACIDOSIS, STILL REQUIRING PRESSOR SUPPORT FOR HYPOTENSION; SUSPECT THERE HAS BEEN PE AND DVT GOING ON FOR MONTHS # STATUS POST TPA WITHOUT COMPLICATION # ELEVATED TROPONIN DUE TO THE ABOVE # PULMONARY HYPERTENSION # CHRONIC DIARRHEA, WITH HIGH SUSPICION FOR CHRONIC INFLAMMATORY BOWEL DISEASE UNDIAGNOSED DUE TO PATIENT'S UNWILLINGNESS TO HAVE AN ENDOSCOPY SO FAR # ANEMIA, SUSPECT DUE TO CHRONIC DISEASE RELATED TO HER BOWEL ILLNESS AND NUTRITIONAL DEFICIENCIES # SEVERE PROTEIN CALORIE MALNUTRITION PLANS: -I reviewed the patient's condition and care plan and her medical history in detail with Dr. Talat Higuera -due to low CVP an ongoing pressor support needs will give IV albumin and other fluid support today and follow closely -Continue heparin and transition to Coumadin -she should have lifelong anticoagulation -At some point she will need endoscopic evaluation for her bowel disease. She has resisted this so far. She is now more agreeable. I have reviewed the potential timing of this with doctor Higuera and will review with Dr. Castaneda. It may potentially be useful to consider and a sigmoidoscopy during this admission and an eventual full colonoscopy at a future date. I have reviewed the patient's care plan and condition in detail with sherry Higuera Patient also seen on multidisciplinary rounds. 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, my personal review: Sinus rhythm with tachycardia Exam: alert oriented skin warm dry color ok good distal capillary refill in digits resps still a bit tachypneic but not labored lungs clear BSs heart regular abd soft nondistended nontender, bowel sounds present limbs warm, still with bilateral leg edema iv site ok Objective: Vital Signs Temp Pulse Resp BP Pulse Ox 36.7 C 88 26 H 94/63 L 97 08/09/16 08:00 08/09/16 12:00 08/09/16 12:00 08/09/16 12:00 08/09/16 12:00 Laboratory Results 08/09/16 05:00 08/08/16 05:20 08/08/16 08/09/16 08/10/16 06:59 06:59 06:59 Intake Total 5326 6163 Output Total 850 Balance 5324 3459 PT 19.3 SEC (12.0-15.0) H 08/07/16 21:50 INR 1.62 (0.83-1.16) H 08/07/16 21:50 ICD10 Worksheet Patient Problems: Problems Problem Status Diagnosed Dehydration Acute Pulmonary embolism Acute Anemia Acute C. difficile diarrhea Acute 04/21/16 Superficial thrombophlebitis Acute
[2016-08-09 13:18] LABS: COLOR YELLOW; LEUKOCYTE ESTERASE,URINE 3+ (NEGATIVE); NITRITE,URINE NEGATIVE (NEGATIVE)
[2016-08-09 13:21] LABS: BACTERIA 1+ /hpf (NONE SEEN); MUCUS TRACE /lpf (NONE-1+); WBC,URINE 15-25 /hpf (0-3)
[2016-08-09] MEDS: HYDROmorphONE/DILAUDID 1 MG/ML SYR IVP PRN (18:28)
--- NOTE | 2016-08-09 18:37 | PDINTPN ---
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 Associated with right lower extremity DVT, the likely source. Probably secondary to inactivity. Status post tPA. On heparin. Better slowly. Hypotension: On Levophed. Continue to give fluids for right ventricular filling. Pulmonary hypertension: Secondary To #1. Diarrhea: Evaluation in progress. Chronic. Possibly secondary to recurrent colitis? Will need sigmoidoscopy or colonoscopy once she is better. Anemia: Hematocrit stable at 25. No evidence of a bleeding source. Diarrhea not bloody. Probably chronic. Malaise, fatigue, failure to thrive: On going now times months, antidating this presentation . Multifactorial. On going evaluation in progress. Will need to consider underlying occult malignancy. Plan: Continue anticoagulation, oxygen, supportive care. Gradually increase activity as tolerated. Follow laboratory, hematocrit. Await hypercoagulability workup. GI evaluation once more stable. Subjective: remains weak, I am somewhat short of breath. Intermittent diarrhea present. Objective: Vital Signs Temp Pulse Resp BP Pulse Ox 37.3 C 106 H 30 H 98/61 L 94 08/09/16 18:00 08/09/16 18:00 08/09/16 18:00 08/09/16 18:00 08/09/16 18:00 Laboratory Results 08/09/16 05:00 08/08/16 05:20 08/08/16 08/09/16 08/10/16 05:59 05:59 05:59 Intake Total 5326 6163 Output Total 850 Balance 5326 5313 PT 19.3 SEC (12.0-15.0) H 08/07/16 21:50 INR 1.62 (0.83-1.16) H 08/07/16 21:50 Laboratory Tests 08/08/16 08/09/16 08/09/16 05:20 05:00 13:05 Heparin Anti-Xa, Unfract 0.35 Calcium 6.3 L D Troponin I 0.103 H NT-Pro-B Natriuret Pep 9370 H Urine WBC 15-25 H Lower extremity ultrasound: Positive for clot in the right lower extremity. Physical Exam - Physical Exam General Appearance: alert, mild distress EENT: other ( OxyMask at 4-5 L) Neck: normal inspection ( no obvious jugular venous distension but fairly large neck.) Respiratory: normal breath sounds ( Lungs clear anteriorly), decreased breath sounds ( and excursions), rales ( few), pleural rub ( soft, at right anterior base), No rhonchi Cardiac/Chest: regular rate, rhythm (tolic murmur.) Abdomen: normal bowel sounds, non-tender, soft, other ( Intermittent diarrhea) Skin: warm/dry, pallor Extremities: non-tender, No calf tenderness, No swelling Neuro/Psych: no motor/sensory deficits, No cognition abnormalities ICD10 Worksheet Patient Problems: Problems Problem Status Diagnosed Dehydration Acute Pulmonary embolism Acute Anemia Acute C. difficile diarrhea Acute 04/21/16 Superficial thrombophlebitis Acute
[2016-08-09] MEDS: FAMOTIDINE 20 MG TAB PO SCH (20:11)
[2016-08-10] MEDS: HYDROmorphONE/DILAUDID 1 MG/ML SYR IVP PRN ×2 (00:08→19:28)
[2016-08-10] MEDS: NS 1,000 ML IV SCH ×2 (00:09→10:20)
[2016-08-10 05:19] LABS: % IMMATURE GRANULYOCYTES 1.3 % (0.0-1.1); ABSOLUTE IMMATURE GRANULOCYTES 0.16 10^3/uL (0.00-0.10); ADD DIFF? NO; ADD MORPH? NO; ADD SCAN? NO; ATYPICAL LYMPHOCYTE FLAG 40 (0-99); FRAGMENT RBC FLAG 0 (0-99); HEMATOCRIT 25.2 % (38.0-47.0); HEMOGLOBIN 8.1 g/dL (12.6-16.3); LEFT SHIFT FLG 10 (0-99); LIPEMIA HEMOLYSIS FLAG 80 (0-99); MEAN CELL HEMOGLOBIN CONCENTR. 32.1 g/dL (32.4-36.7); MEAN CELL VOLUME 96.6 fL (81.5-99.8); MEAN PLATELET VOLUME 10.5 fL (8.7-11.7); PLATELET CLUMPS FLAG 0 (0-99); PLATELET COUNT 296 10^3/uL (150-400); RED BLOOD CELL COUNT 2.61 10^6/uL (4.18-5.33)
[2016-08-10 05:28] LABS: ANION GAP 4 mEq/L (8-16); CARBON DIOXIDE 22 mEq/l (22-31); CHLORIDE 108 mEq/L (97-110); CREATININE 0.5 mg/dL (0.6-1.0); GLOMERULAR FILTRATION RATE > 60; GLUCOSE 86 mg/dL (70-100); POTASSIUM 2.8 mEq/L (3.5-5.2); SODIUM 134 mEq/L (134-144)
[2016-08-10] MEDS ORDERED: PROTOCOL MAGNESIUM 1 DOSE IV PRN (05:37)
[2016-08-10] MEDS ORDERED: PROTOCOL POTASSIUM 1 DOSE MISC PRN (05:37)
[2016-08-10] MEDS: POTASSIUM Cl (KCl) 50 ML IV SCH ×4 (06:01→19:39)
[2016-08-10] MEDS: HEPARIN 10,000 UNIT/10 ML MDV IVP PRN ×3 (06:01→19:35)
[2016-08-10] MEDS: FAMOTIDINE 20 MG TAB PO SCH ×2 (08:18→19:29)
[2016-08-10] MEDS: NOREPINEPHRINE BITARTRATE 4 MG in D5W 500 ML IV SCH (10:18)
[2016-08-10] MEDS: HEPARIN/DEXTROSE 500 ML IV SCH ×2 (10:18→19:38)
[2016-08-10] MEDS ORDERED: ALBUMIN 25% 200 ML IV ONE (10:57)
--- NOTE | 2016-08-10 12:26 | PDINTPN ---
[employer] Progress Note Assessment/Plan: Assessment: Pulmonary embolism: Acute on chronic. Associated with right lower extremity DVT, the likely source. Probably secondary to inactivity. Hypercoagulability panel pending. Status post tPA. On heparin. Better slowly. Hypotension: On Levophed. Continue to give crystalloid and colloid for right ventricular filling. I will slow crystalloid down secondary to significant anasarca and weight gain. Pulmonary hypertension: Secondary To #1. Diarrhea: Evaluation in progress. Chronic. Possibly secondary to recurrent colitis? Will need inpatient GI evaluation and sigmoidoscopy or colonoscopy once she is better. I anticipate that we can proceed with this early next week. Anemia: Hematocrit stable at 25. No evidence of a bleeding source. Diarrhea not bloody. Probably chronic. Malaise, fatigue, failure to thrive: On going now times months, antedating this presentation . Multifactorial. Evaluation in progress. Will need to consider underlying occult malignancy. Plan: Continue anticoagulation, oxygen, supportive care. Gradually increase activity as tolerated. Follow laboratory, hematocrit. Await hypercoagulability workup. GI evaluation once stable. 25 minutes of critical care time spent directly with the patient. Discussed with the patient, the patient's mother, hospitalist, nursing, Subjective: Better today. Little stronger, little less short of breath. On decreasing oxygen and Levophed. Objective: Vital Signs Temp Pulse Resp BP Pulse Ox 36.7 C 101 H 31 H 85/56 L 96 08/10/16 08:00 08/10/16 10:00 08/10/16 10:00 08/10/16 10:00 08/10/16 10:00 Laboratory Results 08/10/16 05:00 08/10/16 05:00 08/09/16 08/10/16 08/11/16 05:59 05:59 05:59 Intake Total 6163 5988 Output Total 850 260 Balance 5313 5728 PT 19.3 SEC (12.0-15.0) H 08/07/16 21:50 INR 1.62 (0.83-1.16) H 08/07/16 21:50 Laboratory Tests 08/08/16 08/10/16 16:55 05:00 Heparin Anti-Xa, Unfract 0.13 L Calcium 7.0 L Anti-Cardiolipin IgG Ab 4.2 Anti-Cardiolipin IgM Ab <4.0 Physical Exam - Physical Exam General Appearance: mild distress, other (Pale, chronically ill-appearing) EENT: PERRL/EOMI, other (Nasal cannula at 4 L) Neck: normal inspection (No obvious JVD) Respiratory: decreased breath sounds (Decreased excursions), rales (Few scattered), pleural rub (Soft, right lower anterior chest), No rhonchi, No wheezing Cardiac/Chest: tachycardia (Sinus, low 100s increased P2) Abdomen: normal bowel sounds, non-tender, soft, other (Diarrhea persists, brown , not bloody. Frequency perhaps decreased somewhat today) Pelvic Exam: other Skin: warm/dry, pallor Extremities: swelling (Anasarca all extremities and back) Neuro/Psych: no motor/sensory deficits, No cognition abnormalities ICD10 Worksheet Patient Problems: Problems Problem Status Diagnosed Dehydration Acute Pulmonary embolism Acute Anemia Acute C. difficile diarrhea Acute 04/21/16 Superficial thrombophlebitis Acute
[2016-08-10] MEDS: NS W/ 20 KCl/L 1,000 ML IV SCH (12:29)
[2016-08-10 12:39] LABS: MAGNESIUM 1.8 mg/dL (1.6-2.3); POTASSIUM 2.9 mEq/L (3.5-5.2)
[2016-08-10] MEDS ORDERED: POTASSIUM CL 10 MEQ TAB PO ONE (12:49)
--- NOTE | 2016-08-10 12:56 | HOSPPROG ---
Hospitalist Progress Note Assessment/Plan: DIAGNOSIS: # ACUTE MASSIVE PULMONARY EMBOLUS WITH HYPOTENSION AND LACTIC ACIDOSIS, STILL REQUIRING PRESSOR SUPPORT FOR HYPOTENSION; SUSPECT THERE HAS BEEN PE AND DVT GOING ON FOR MONTHS # STATUS POST TPA WITHOUT COMPLICATION # ELEVATED TROPONIN DUE TO THE ABOVE # PULMONARY HYPERTENSION # CHRONIC DIARRHEA, WITH HIGH SUSPICION FOR CHRONIC INFLAMMATORY BOWEL DISEASE UNDIAGNOSED DUE TO PATIENT'S UNWILLINGNESS TO HAVE AN ENDOSCOPY SO FAR # ANEMIA, SUSPECT DUE TO CHRONIC DISEASE RELATED TO HER BOWEL ILLNESS AND NUTRITIONAL DEFICIENCIES # SEVERE PROTEIN CALORIE MALNUTRITION PLANS: -I reviewed the patient's condition and care plan and her medical history in detail with Dr. Talat Higuera and Breann Acosta -again, due to low CVP an ongoing pressor support needs will give IV albumin, continue attempts to wean pressor -Continue heparin and transition to Coumadin -she should have lifelong anticoagulation -Dr Acosta will see pt and review DR Castaneda's clinic notes, weigh in on optimal timing of enoscopy -will begin attempts at increased mobility, though she is tethered by pressor and heparin drips. Patient also seen on multidisciplinary rounds. 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, my personal review: Sinus rhythm with tachycardia Exam: alert oriented skin warm dry color ok good distal capillary refill in digits resps still a bit tachypneic but not labored lungs clear BSs heart regular abd soft nondistended nontender, bowel sounds present limbs warm, still with bilateral leg edema, perhaps even increased today iv site ok I do not see bleeding or bruising Objective: Vital Signs Temp Pulse Resp BP Pulse Ox 36.7 C 108 H 34 H 88/59 L 91 L 08/10/16 08:00 08/10/16 12:00 08/10/16 12:00 08/10/16 12:00 08/10/16 12:00 Laboratory Results 08/10/16 05:00 08/10/16 12:10 08/09/16 08/10/16 08/11/16 06:59 06:59 06:59 Intake Total 6163 5988 Output Total 850 260 Balance 5313 5728 PT 19.3 SEC (12.0-15.0) H 08/07/16 21:50 INR 1.62 (0.83-1.16) H 08/07/16 21:50 ICD10 Worksheet Patient Problems: Problems Problem Status Diagnosed Dehydration Acute Pulmonary embolism Acute Anemia Acute C. difficile diarrhea Acute 04/21/16 Superficial thrombophlebitis Acute
--- NOTE | 2016-08-10 13:27 | GCON ---
[f rep st] CONSULTATION INPATIENT CONSULTATION REQUESTING PHYSICIANS: Dr. Neno Carrasco. REASON FOR CONSULTATION: Malnutrition and diarrhea. CHIEF COMPLAINT: Diarrhea. HISTORY OF PRESENT ILLNESS: Briefly, Ms. Costa is a 51-year-old female who has been suffering over t he last several months from a diarrheal illness. She reports she had acute infectious diarrhea in spring. At that time, she had significant perianal itching. She was treated empirically f or parasites. She failed to improve and developed chronic diarrhea and perianal discomfort. She rc n developed hemorrhoidal disease, perirectal abscess, and perianal fistula. These were treated surgi marcin. She also developed C difficile and was managed with vancomycin. Despite these multiple cours es of antibiotics and antiparasitic agents that have taken place between October 2014 and today, she re elidia bothered by frequent, loose, and urgent bowel movements. This illness has been coincident with a significant weight loss and malnutrition. Her workup has been somewhat incomplete. She has had s ome laboratory testing and stool testing but has not undergone any endoscopic evaluation. She began to notice shortness of breath and chest discomfort. She presented to the emergency room fo r evaluation. Her inpatient workup was notable for the discovery of pulmonary embolism. She is curr ently being managed with anticoagulation after a round of tPA to manage her pulmonary clots. The martín ology of her clotting is somewhat uncertain at this time. A long-term plan related to anticoagulatio n has yet to be formed. She is in the acute phase of management and workup of pulmonary embolism. She reports she has had significant diarrheal symptoms for some time. She finds that eating will nancy e these symptoms worse and has reduced her p.o. intake. PAST MEDICAL HISTORY: Includes indeterminate degree of colitis, anal fissures, and anemia. ALLERGIES: None. FAMILY HISTORY: Includes Crohn disease in her brother as well as heart disease. SOCIAL HISTORY: She does not drink, use drugs, or smoke cigarettes. CURRENT MEDICATIONS: Tylenol, Pepcid, heparin, Dilaudid, Zofran. REVIEW OF SYSTEMS: A complete 10-system review was undertaken with the patient and is negative excep t for those details described in the History of Present Illness. LABORATORY TESTING: White count of 12.06, hemoglobin of 8.1, hematocrit of 25.2, platelet count of 2 96. Sodium of 134, potassium of 2.8, chloride of 108, bicarb of 22, BUN less than 2, creatinine of 0 .5, calcium of 7.0. C difficile stool testing was negative. IMPRESSION AND RECOMMENDATIONS: Aniya has had a chronic diarrheal illness that has led to significan t symptoms. It may also be contributing to an overall state of malnutrition. Her workup as to the e tiology of her abdominal symptoms has been somewhat incomplete. At this time, she warrants further e ndoscopic evaluation to rule out colitis, Crohn disease, malignancy, etc. Unfortunately, due to her acute pulmonary embolism presentation, we may need to defer her endoscopic evaluation until such time as she can be safely transitioned off anticoagulation. Meanwhile, I recommend continued supportive care. Aggressive nutritional support, rehydration, etc., will be useful while we wait for a time whe n it is safe to proceed with endoscopic evaluation of her diarrheal symptoms. The differential diagn osis for her symptoms is broad, difficult to determine without additional workup. Therefore, no empi radha therapies are warranted at this time. Additional stool testing could be useful to rule out ongoi ng parasitic infection, bacterial infection, etc. Of note, her stool was negative for C difficile. /[id number]/MODL
[2016-08-10 17:06] LABS: FECES RBC RARE (NONE SEEN); FECES WBC 3+ (NONE SEEN); O/P DESCRIPTION SOFT MUCOUSY BROWN; O/P DIRECT NONE SEEN (NONE SEEN)
[2016-08-10 19:10] LABS: POTASSIUM 3.2 mEq/L (3.5-5.2)
[2016-08-11] MEDS: HYDROmorphONE/DILAUDID 1 MG/ML SYR IVP PRN ×2 (00:19→20:41)
[2016-08-11 05:05] LABS: ADD DIFF? NO; ADD MORPH? NO; ADD SCAN? NO; ATYPICAL LYMPHOCYTE FLAG 80 (0-99); FRAGMENT RBC FLAG 0 (0-99); HEMATOCRIT 23.2 % (38.0-47.0); HEMOGLOBIN 7.6 g/dL (12.6-16.3); LEFT SHIFT FLG 0 (0-99); LIPEMIA HEMOLYSIS FLAG 80 (0-99); MEAN CELL HEMOGLOBIN 31.8 pg (27.9-34.1); MEAN CELL HEMOGLOBIN CONCENTR. 32.8 g/dL (32.4-36.7); MEAN CELL VOLUME 97.1 fL (81.5-99.8); MEAN PLATELET VOLUME 10.5 fL (8.7-11.7); PLATELET CLUMPS FLAG 20 (0-99); PLATELET COUNT 284 10^3/uL (150-400); RED BLOOD CELL COUNT 2.39 10^6/uL (4.18-5.33); RED CELL DISTRIBUTION WIDTH 17.2 % (11.5-15.2)
[2016-08-11 06:25] LABS: ALANINE AMINOTRANSFERASE 50 IU/L (9-52); ALBUMIN 1.8 g/dL (3.5-5.0); ALKALINE PHOSPHATASE 161 IU/L (38-126); ANION GAP 6 mEq/L (8-16); ASPARTATE AMINOTRANSFERASE 31 IU/L (14-46); BILIRUBIN,TOTAL 1.1 mg/dL (0.1-1.4); CALCIUM 7.3 mg/dL (8.5-10.4); CARBON DIOXIDE 22 mEq/l (22-31); CHLORIDE 110 mEq/L (97-110); CREATININE 0.4 mg/dL (0.6-1.0); GLOMERULAR FILTRATION RATE > 60; GLUCOSE 77 mg/dL (70-100); MAGNESIUM 1.8 mg/dL (1.6-2.3); POTASSIUM 3.9 mEq/L (3.5-5.2); SODIUM 138 mEq/L (134-144); TOTAL PROTEIN 4.6 g/dL (6.3-8.2)
--- NOTE | 2016-08-11 07:36 | SOAPPROG ---
SOAP Progress Note Assessment/Plan: Assessment: 1. Diarrhea - etiology? - significant clinically - contributing to malnutrition - differential is broad and includes infection, inflammation, malignancy 2. Clotting Plan: 1. Diarrhea - recommend Colonoscopy once safe to perform - would plan EGD at the same time (r/u protein losing enteropathy, celiac, etc ) although dx likely in colon - continue supportive care - ok to eat - repeat stool infectious w/u pending - add imodium for symptom relief 2. clotting - w/u and mgt underway - once clinically feasible to have break in anticoagulation, will organize EGD/ [place] - will follow 08/11/16 07:33 08/11/16 07:49 Subjective: CC: weak S: no fever ongoing loose stools mild SOB no nausea no vomiting Objective: Vital Signs Temp Pulse Resp BP Pulse Ox 36.5 C 84 21 H 83/53 L 91 L 08/10/16 19:41 08/11/16 06:00 08/11/16 06:00 08/11/16 06:00 08/11/16 06:00 Laboratory Results 08/11/16 04:45 08/11/16 04:45 08/10/16 08/11/16 08/12/16 05:59 05:59 05:59 Intake Total 5988 4519 Output Total 260 Balance 5728 4519 PT 19.3 SEC (12.0-15.0) H 08/07/16 21:50 INR 1.62 (0.83-1.16) H 08/07/16 21:50 Microbiology Laboratory Tests 08/10/16 08/11/16 16:20 04:45 WBC 10.13 H RBC 2.39 L Hct 23.2 L Plt Count 284 Sodium 138 Chloride 110 Carbon Dioxide 22 BUN < 2 L Creatinine 0.4 L Magnesium 1.8 Total Bilirubin 1.1 AST 31 ALT 50 Alkaline Phosphatase 161 H Total Protein 4.6 L Albumin 1.8 L Stool Concentration Pending Stool Total Fatty Acids Pending Stool Neutral Fats Pending Stool for White Cells 3+ H Parasite Trichrome Pending Cryptosporidium Ag Pending Giardia Antigen Pending Direct Microscop Exam NONE SEEN Physical Exam - Physical Exam General Appearance: mild distress, thin EENT: PERRL/EOMI Respiratory: lungs clear, No respiratory distress, No accessory muscle use Cardiac/Chest: normal peripheral pulses, regular rate, rhythm Abdomen: normal bowel sounds, soft, No non-tender, No distended, No guarding, No rebound, No hernia Skin: normal color Extremities: normal range of motion Neuro/Psych: alert ICD10 Worksheet Patient Problems: Problems Problem Status Diagnosed Dehydration Acute Pulmonary embolism Acute Anemia Acute C. difficile diarrhea Acute 04/21/16 Superficial thrombophlebitis Acute
[2016-08-11] MEDS: HEPARIN/DEXTROSE 500 ML IV SCH (08:21)
[2016-08-11] MEDS: FAMOTIDINE 20 MG TAB PO SCH ×2 (09:43→20:41)
[2016-08-11] MEDS ORDERED: MULTIVITAMINS W-IRON (PEDS) 1 ML UDSYR PO SCH (10:00)
[2016-08-11] MEDS ORDERED: LOPERAMIDE HCL 2 MG CAP PO ONE (10:20)
[2016-08-11] MEDS: LOPERAMIDE HCL 2 MG CAP PO PRN ×3 (10:22→13:48)
[2016-08-11] MEDS: MULTIVITAMINS 1 EACH TAB PO SCH (10:23)
[2016-08-11] MEDS ORDERED: POTASSIUM CL 10 MEQ TAB PO ONE ×2 (10:46→22:16)
[2016-08-11] MEDS ORDERED: MAGNESIUM SULF 1 GM/DEXTROSE 100 ML IV ONE (10:50)
[2016-08-11] MEDS ORDERED: FUROSEMIDE 20 MG/2 ML VIAL IVP ONE (13:09)
--- NOTE | 2016-08-11 13:11 | PDINTPN ---
Prescription Clerk Lenses Progress Note Assessment/Plan: Assessment: Pulmonary embolism: Acute on chronic. Associated with right lower extremity DVT, the likely source. Probably secondary to inactivity. Hypercoagulability panel pending. Status post tPA. On heparin. Off Levophed as of last night. Oxygen requirements less. Starting to ambulate. Remains quite edematous secondary to volume resuscitation with acute PE and pulmonary hypertension. Hypotension: Off Levophed. Pulmonary hypertension: Secondary To #1. Diarrhea: Evaluation in progress. Chronic. Possibly secondary to recurrent colitis? Will need sigmoidoscopy or colonoscopy once her acute problems have resolved. GI is involved.. I anticipate that we can began to proceed with this in the next few days. Anemia: Hematocrit stable at 23. No evidence of a bleeding source. Diarrhea not bloody. Malaise, fatigue, failure to thrive: On going now times months, antedating this presentation . Multifactorial. Evaluation in progress. Will need to consider underlying chronic inflammatory bowel disease, occult malignancy, etc. Plan: Continue anticoagulation, oxygen, supportive care. Gradually increase activity as tolerated. Follow laboratory, hematocrit. Await hypercoagulability workup. GI evaluation. Will try 20 Lasix once today and see if we can begin diuresis without hypotension. For chest x-ray today as well. 30 minutes of critical care time spent directly with the patient. Discussed with the patient, the patient's mother, hospitalist, nursing, Subjective: Feels a little better. Walked in the halls. No chest pain. Dyspnea persists. Complains of swelling. Objective: Vital Signs Temp Pulse Resp BP Pulse Ox 36.8 C 104 H 30 H 95/66 L 100 08/11/16 08:00 08/11/16 10:00 08/11/16 10:00 08/11/16 10:00 08/11/16 10:00 Laboratory Results 08/11/16 04:45 08/11/16 04:45 08/10/16 08/11/16 08/12/16 05:59 05:59 05:59 Intake Total 5988 4519 Output Total 260 Balance 5728 4519 PT 19.3 SEC (12.0-15.0) H 08/07/16 21:50 INR 1.62 (0.83-1.16) H 08/07/16 21:50 Laboratory Tests 08/11/16 08/11/16 04:45 08:02 Heparin Anti-Xa, Unfract 0.32 Calcium 7.3 L Magnesium 1.8 Total Bilirubin 1.1 AST 31 ALT 50 Albumin 1.8 L Physical Exam - Physical Exam General Appearance: alert, mild distress, other (Chronically ill-appearing) EENT: PERRL/EOMI, pale conjunctiva (R), pale conjunctiva (L), other (Nasal cannula 5 L, 100%) Neck: normal inspection (JVD was hard to assess, large neck) Respiratory: lungs clear (Anteriorly), decreased breath sounds (And excursions at bases), rales (Few), pleural rub (Improved lower right anterior chest) Cardiac/Chest: regular rate, rhythm (To sinus tachycardia. Increased P2) Abdomen: normal bowel sounds, non-tender, soft, other (Intermittent diarrhea persists) Pelvic Exam: other (No [place] catheter. Urine output hard to assess) Skin: warm/dry, pallor Extremities: swelling (2 to 3+) Neuro/Psych: no motor/sensory deficits, motor weakness (Global), No cognition abnormalities ICD10 Worksheet Patient Problems: Problems Problem Status Diagnosed Dehydration Acute Pulmonary embolism Acute Anemia Acute C. difficile diarrhea Acute 04/21/16 Superficial thrombophlebitis Acute
--- NOTE | 2016-08-11 14:12 | HOSPPROG ---
Hospitalist Progress Note Assessment/Plan: DIAGNOSIS: # ACUTE MASSIVE PULMONARY EMBOLUS WITH HYPOTENSION AND LACTIC ACIDOSIS, STILL REQUIRING PRESSOR SUPPORT FOR HYPOTENSION; SUSPECT THERE HAS BEEN PE AND DVT GOING ON FOR MONTHS # STATUS POST TPA WITHOUT COMPLICATION # ELEVATED TROPONIN DUE TO THE ABOVE # PULMONARY HYPERTENSION # CHRONIC DIARRHEA, WITH HIGH SUSPICION FOR CHRONIC INFLAMMATORY BOWEL DISEASE UNDIAGNOSED DUE TO PATIENT'S UNWILLINGNESS TO HAVE AN ENDOSCOPY SO FAR # ANEMIA, SUSPECT DUE TO CHRONIC DISEASE RELATED TO HER BOWEL ILLNESS AND NUTRITIONAL DEFICIENCIES # SEVERE PROTEIN CALORIE MALNUTRITION PLANS: -I reviewed the patient's condition and care plan and her medical history in detail with Dr. Talat Higuera and Breann Acosta -Continue heparin and transition to Coumadin -she should have lifelong anticoagulation -colonoscopy and EGD when she is stabilized from pulmonary standpoint -will continue attempts at increased mobility Patient also seen on multidisciplinary rounds. I have also discussed all the above in detail with the patient's family her here at the bedside with her newly SUBJECTIVE: Walked in the hallway today a short distance which cause severe fatigue but overall tolerated it well otherwise Still with dyspnea at rest still w diarrhea, no abd pain or fever No bleeding or bruising anywhere OBJECTIVE Vitals reviewed: Less tachycardia and tachypnea, blood pressure is a bit low but currently off pressors residential monitor, my personal review: Sinus rhythm with tachycardia Exam: alert oriented skin warm dry color ok good distal capillary refill in digits resps still a bit tachypneic but not labored lungs clear BSs heart regular abd soft nondistended nontender, bowel sounds present limbs warm, still with bilateral leg edema, perhaps even increased today iv site ok No bleeding or bruising Objective: Vital Signs Temp Pulse Resp BP Pulse Ox 36.8 C 104 H 30 H 95/66 L 100 08/11/16 08:00 08/11/16 10:00 08/11/16 10:00 08/11/16 10:00 08/11/16 10:00 Laboratory Results 08/11/16 04:45 08/11/16 04:45 08/10/16 08/11/16 08/12/16 06:59 06:59 06:59 Intake Total 5988 4519 Output Total 260 Balance 5728 4519 PT 19.3 SEC (12.0-15.0) H 08/07/16 21:50 INR 1.62 (0.83-1.16) H 08/07/16 21:50 ICD10 Worksheet Patient Problems: Problems Problem Status Diagnosed Dehydration Acute Pulmonary embolism Acute Anemia Acute C. difficile diarrhea Acute 04/21/16 Superficial thrombophlebitis Acute
--- NOTE | 2016-08-11 14:32 | DX ---
Portable AP Upright Chest August 11, 2016 at 2:03 p.m. Clinical History: 51-year-old female in the ICU with a recent history of extensive bilateral pulmonar y artery emboli and deep venous thrombosis, presenting for follow-up of respiratory status. Comparison Studies: Chest imaging, dated August 07, 2016. Findings: There is a right IJ central venous catheter which terminates at the SVC/right atrial juncti on. Telemetry monitoring lead lines and oxygen tubing are in place. There are more pronounced hypoven tilatory features than on the previous study. There has also been development of bilateral pleural ef fusions, left greater than right, with airspace disease obscuring portions of the cardiac silhouette. There is some increasing consolidation along the right minor fissure, which may represent fluid accu mulating in this location. There is also more pronounced perihilar vascular congestion and/or perihil ar alveolar consolidation. There is no pneumothorax. There are degenerative features of the spine. Impression: Interval worsening since August 07, 2016.
[2016-08-11] MEDS ORDERED: MAGNESIUM SULF 1 GM/DEXTROSE 100 ML BAG IV ONE (14:50)
[2016-08-11] MEDS ORDERED: POTASSIUM CL 20 MEQ TAB ONE (14:51)
[2016-08-11] MEDS ORDERED: POTASSIUM CL 10 MEQ TAB ONE (14:53)
[2016-08-11] MEDS: NS W/ 20 KCl/L 1,000 ML IV SCH (16:23)
[2016-08-11 18:57] LABS: POTASSIUM 3.8 mEq/L (3.5-5.2)
[2016-08-11] MEDS ORDERED: TEARS/DEXTRAN 70/HYPROMELLOSE 15 ML OPHT.BTL EACHEYE PRN (20:55)
[2016-08-12] MEDS: HYDROmorphONE/DILAUDID 1 MG/ML SYR IVP PRN ×2 (00:24→20:59)
[2016-08-12] MEDS: NS W/ 20 KCl/L 1,000 ML IV SCH (03:07)
[2016-08-12 04:55] LABS: % IMMATURE GRANULYOCYTES 0.8 % (0.0-1.1); ABSOLUTE IMMATURE GRANULOCYTES 0.09 10^3/uL (0.00-0.10); ADD DIFF? NO; ADD MORPH? NO; ADD SCAN? NO; ATYPICAL LYMPHOCYTE FLAG 60 (0-99); FRAGMENT RBC FLAG 0 (0-99); HEMATOCRIT 23.4 % (38.0-47.0); HEMOGLOBIN 7.6 g/dL (12.6-16.3); LEFT SHIFT FLG 0 (0-99); LIPEMIA HEMOLYSIS FLAG 80 (0-99); MEAN CELL HEMOGLOBIN 31.7 pg (27.9-34.1); MEAN CELL HEMOGLOBIN CONCENTR. 32.5 g/dL (32.4-36.7); MEAN CELL VOLUME 97.5 fL (81.5-99.8); MEAN PLATELET VOLUME 10.5 fL (8.7-11.7); PLATELET CLUMPS FLAG 0 (0-99); PLATELET COUNT 378 10^3/uL (150-400); RED CELL DISTRIBUTION WIDTH 17.7 % (11.5-15.2)
[2016-08-12 05:07] LABS: ALANINE AMINOTRANSFERASE 50 IU/L (9-52); ALBUMIN 1.8 g/dL (3.5-5.0); ALKALINE PHOSPHATASE 179 IU/L (38-126); ANION GAP 4 mEq/L (8-16); ASPARTATE AMINOTRANSFERASE 22 IU/L (14-46); BILIRUBIN,TOTAL 0.8 mg/dL (0.1-1.4); CALCIUM 7.3 mg/dL (8.5-10.4); CARBON DIOXIDE 23 mEq/l (22-31); CHLORIDE 110 mEq/L (97-110); CREATININE 0.5 mg/dL (0.6-1.0); GLOMERULAR FILTRATION RATE > 60; GLUCOSE 72 mg/dL (70-100); MAGNESIUM 1.9 mg/dL (1.6-2.3); SODIUM 137 mEq/L (134-144); TOTAL PROTEIN 4.5 g/dL (6.3-8.2)
[2016-08-12 08:33] LABS: O/P CONCENTRATION NONE SEEN (NONE SEEN)
[2016-08-12] MEDS: MULTIVITAMINS 1 EACH TAB PO SCH (09:35)
[2016-08-12] MEDS: LOPERAMIDE HCL 2 MG CAP PO PRN ×5 (09:36→23:44)
[2016-08-12] MEDS: FAMOTIDINE 20 MG TAB PO SCH ×2 (09:36→20:59)
--- NOTE | 2016-08-12 09:48 | PDINTPN ---
Lumber Tripper Progress Note Assessment/Plan: Assessment/Plan: * Pulmonary embolism: Acute on chronic. Associated with right lower extremity DVT, the likely source. Probably secondary to inactivity. Hypercoagulability panel pending. Status post tPA. On heparin. Off Levophed as of last night. Oxygen requirements less. Starting to ambulate. * LE edema- secondary to volume resuscitation with acute PE and pulmonary hypertension, as well as malnutrition * Hypotension: Off Levophed. * Pulmonary hypertension: Secondary To #1. * Diarrhea: Evaluation in progress. Chronic. Possibly secondary to recurrent colitis? Will need sigmoidoscopy or colonoscopy once her acute problems have resolved. GI is involved.. I anticipate that we can began to proceed with this in the next few days. * Anemia: Hematocrit stable at 23. No evidence of a bleeding source. Diarrhea not bloody. * Malaise, fatigue, failure to thrive: On going now times months, antedating this presentation . Multifactorial. Evaluation in progress. Will need to consider underlying chronic inflammatory bowel disease, occult malignancy, etc. * Malnutrition Subjective: Up in chair. Multiple somatic complaints Objective: Vital Signs Temp Pulse Resp BP Pulse Ox 36.8 C 104 H 19 87/54 L 95 08/11/16 20:00 08/12/16 06:00 08/12/16 06:00 08/12/16 06:00 08/12/16 06:00 Laboratory Results 08/12/16 04:30 08/12/16 04:30 08/11/16 08/12/16 08/13/16 05:59 05:59 05:59 Intake Total 4519 4008 Output Total 1999 Balance 4519 2007 PT 19.3 SEC (12.0-15.0) H 08/07/16 21:50 INR 1.62 (0.83-1.16) H 08/07/16 21:50 Physical Exam - Physical Exam General Appearance: alert, mild distress EENT: PERRL/EOMI, normal ENT inspection, pharynx normal Neck: non-tender, full range of motion, supple, normal inspection Respiratory: crackles (few), No respiratory distress, No wheezing Cardiac/Chest: normal peripheral pulses, regular rate, rhythm, systolic murmur Abdomen: normal bowel sounds, non-tender, soft Pelvic Exam: deferred Rectal: deferred Skin: normal color, warm/dry, other (pale) Extremities: pedal edema (3+) Neuro/Psych: no motor/sensory deficits, alert, normal mood/affect, oriented x 3 ICD10 Worksheet Patient Problems: Problems Problem Status Diagnosed Dehydration Acute Pulmonary embolism Acute Anemia Acute C. difficile diarrhea Acute 04/21/16 Superficial thrombophlebitis Acute
[2016-08-12 10:26] LABS: PROTEIN C ACTIVITY 61 % (70 - 150)
[2016-08-12 11:14] LABS: PROTEIN S ACTIVITY 54 % (65 - 160)
--- NOTE | 2016-08-12 12:20 | SOAPPROG ---
SOAP Progress Note Assessment/Plan: Assessment: 1. Diarrhea - etiology? - significant clinically - contributing to malnutrition? - differential is broad and includes infection, inflammation, malignancy 2. Clotting - w/u and therapy underway - complicated by hemodynamic compromise, recently off levophed 3. Malnutrition - etiology? - poor po intake? - protein losses from as yet undiagnosed gi ailments? - poor absorption in setting of possible gi disease? Plan: 1. Diarrhea - recommend Colonoscopy/EGD once safe to prep and undergo anesthesia, as well as to be off anticoagulation - pt only recently off levophed, and remains on IV heparin - continue supportive care - ok to eat - repeat stool infectious w/u pending - add Imodium for symptom relief 2. F/E/N - patient with multiple questions about nutrition - consider nutrition visit to consider patient's calorie needs - given she is able to take po, hope to get adequate nutrition po - could consider temporary added nutritional support with NGT feeding? - will defer to carpenter helper and nutrition evaluation Subjective: CC: feeling weak and depressed S: ongoing diarrhea ongoing poor sleep ongoing depression no chest pain ongoing mild SOB no vomiting pt able to take po w/o pain ro nausea Objective: Vital Signs Temp Pulse Resp BP Pulse Ox 36.8 C 104 H 19 87/54 L 95 08/11/16 20:00 08/12/16 06:00 08/12/16 06:00 08/12/16 06:00 08/12/16 06:00 Laboratory Results 08/12/16 04:30 08/12/16 04:30 08/11/16 08/12/16 08/13/16 05:59 05:59 05:59 Intake Total 4519 4008 Output Total 1999 Balance 4519 2007 PT 19.3 SEC (12.0-15.0) H 08/07/16 21:50 INR 1.62 (0.83-1.16) H 08/07/16 21:50 Laboratory Tests 08/08/16 08/10/16 08/12/16 00:15 16:20 04:30 WBC 10.91 H Hgb 7.6 L Hct 23.4 L Plt Count 378 D Sodium 137 Potassium 4.0 Chloride 110 Carbon Dioxide 23 Anion Gap 4 BUN < 2 L Creatinine 0.5 L Albumin 1.8 L Stool Concentration NONE SEEN Stool Total Fatty Acids Pending Stool Neutral Fats Pending Stool for White Cells 3+ H Stool for RBCs RARE H Stool Ova & Parasites SOFT MUCOUSY BROWN Parasite Trichrome Pending C. difficile Tox (PCR) NEGATIVE Cryptosporidium Ag Pending Giardia Antigen Pending Direct Microscop Exam NONE SEEN Physical Exam - Physical Exam General Appearance: alert, no apparent distress Respiratory: lungs clear Cardiac/Chest: regular rate, rhythm Abdomen: normal bowel sounds, non-tender, soft Skin: normal color Extremities: pedal edema Neuro/Psych: no motor/sensory deficits ICD10 Worksheet Patient Problems: Problems Problem Status Diagnosed Dehydration Acute Pulmonary embolism Acute Anemia Acute C. difficile diarrhea Acute 04/21/16 Superficial thrombophlebitis Acute
[2016-08-12 13:01] LABS: O/P TRICHROME NONE SEEN (NONE SEEN)
[2016-08-12] MEDS: HEPARIN/DEXTROSE 500 ML IV SCH (15:31)
--- NOTE | 2016-08-12 16:03 | HOSPPROG ---
Hospitalist Progress Note Assessment/Plan: DIAGNOSIS: # ACUTE MASSIVE PULMONARY EMBOLUS WITH HYPOTENSION AND LACTIC ACIDOSIS, STILL REQUIRING PRESSOR SUPPORT FOR HYPOTENSION; SUSPECT THERE HAS BEEN PE AND DVT GOING ON FOR MONTHS # STATUS POST TPA WITHOUT COMPLICATION # ELEVATED TROPONIN DUE TO THE ABOVE # PULMONARY HYPERTENSION # CHRONIC DIARRHEA, WITH HIGH SUSPICION FOR CHRONIC INFLAMMATORY BOWEL DISEASE UNDIAGNOSED DUE TO PATIENT'S UNWILLINGNESS TO HAVE AN ENDOSCOPY SO FAR # ANEMIA, SUSPECT DUE TO CHRONIC DISEASE RELATED TO HER BOWEL ILLNESS AND NUTRITIONAL DEFICIENCIES # SEVERE PROTEIN CALORIE MALNUTRITION PLANS: -Continue heparin and transition to Coumadin after endoscopies -she should have lifelong anticoagulation -colonoscopy and EGD when she is stabilized from pulmonary standpoint, likely this week -will continue attempts at increased mobility Discussed in detail with Dr Hill today Patient also seen on multidisciplinary rounds. I spent 30 minutes with the patient and family at bedside reviewing her symptoms , diagnoses, unknowns, the reason for current treatments, and the need for endoscopy as well as likely timing of that, and potential treatments and outcomes moving forward. SUBJECTIVE: Walked in the hallway today 80 ft with fatigue and dyspnea but overall tolerated it well Still with dyspnea at rest still w diarrhea, no abd pain or fever No bleeding or bruising anywhere OBJECTIVE Vitals reviewed: Less tachycardia and tachypnea, remains off pressor blood pressure still a bit low but better quality measurement specialist, my personal review: Sinus rhythm with tachycardia Exam: alert oriented skin warm dry color ok good distal capillary refill in digits resps still a bit tachypneic but not labored lungs clear BSs heart regular abd soft nondistended nontender, bowel sounds present limbs warm, still with bilateral leg edema, perhaps even increased today iv site ok No bleeding or bruising Objective: Vital Signs Temp Pulse Resp BP Pulse Ox 36.8 C 104 H 19 87/54 L 95 08/11/16 20:00 08/12/16 06:00 08/12/16 06:00 08/12/16 06:00 08/12/16 06:00 Laboratory Results 08/12/16 04:30 08/12/16 04:30 08/11/16 08/12/16 08/13/16 06:59 06:59 06:59 Intake Total 4519 4008 Output Total 1999 Balance [id number] PT 19.3 SEC (12.0-15.0) H 08/07/16 21:50 INR 1.62 (0.83-1.16) H 08/07/16 21:50 ICD10 Worksheet Patient Problems: Problems Problem Status Diagnosed Dehydration Acute Pulmonary embolism Acute Anemia Acute C. difficile diarrhea Acute 04/21/16 Superficial thrombophlebitis Acute
[2016-08-12 16:39] LABS: FATTY ACIDS NOT INCREASED (NOT INCR); NEUTRAL FAT NOT INCREASED (NOT INCR)
--- NOTE | 2016-08-12 17:03 | WOCRNPDOC ---
WOCRN Advanced Assessment Note - Skin Integrity Problem, Advanced Assess Coccyx Laceration Dressing Type: Open to Air Exudate Amount: None Melissa Wound Tissue: Blanching, Erythema Melissa Wound Swelling: Mild Wound Bed Color: Yellow Wound Bed Constitution: Adhered Slough Wound Edges: Not Attached Site Measurement - Head-to-Toe Length X Width X Depth (cm): 0.3x1.5x0.2 Skin Integrity Problem Comment: Thin laceration likely from edge of bedpan or other sharp surface sliding across tissue. Wound bed needs some hydration and protection to heal. Encourage patient to lift body when moving from bedpan/chair /bed to other areas to reduce friction. Wound care will not follow. Please reconsult prn.
[2016-08-12 19:26] LABS: POTASSIUM 3.8 mEq/L (3.5-5.2)
[2016-08-12] MEDS ORDERED: POTASSIUM CL 10 MEQ TAB PO ONE (19:29)
[2016-08-12 19:40] LABS: CRYPTOSPORIDIUM ANTIGEN NEGATIVE (NEGATIVE); GIARDIA ANTIGEN NEGATIVE (NEGATIVE)
[2016-08-13] MEDS: HYDROmorphONE/DILAUDID 1 MG/ML SYR IVP PRN ×2 (00:31→04:02)
[2016-08-13] MEDS: HEPARIN/DEXTROSE 500 ML IV SCH ×2 (02:46→13:55)
[2016-08-13] MEDS: LOPERAMIDE HCL 2 MG CAP PO PRN ×3 (04:01→17:35)
[2016-08-13 06:14] LABS: % IMMATURE GRANULYOCYTES 0.9 % (0.0-1.1); ABSOLUTE IMMATURE GRANULOCYTES 0.09 10^3/uL (0.00-0.10); ADD DIFF? NO; ADD MORPH? YES; ADD SCAN? NO; ATYPICAL LYMPHOCYTE FLAG 70 (0-99); FRAGMENT RBC FLAG 0 (0-99); HEMATOCRIT 21.7 % (38.0-47.0); LEFT SHIFT FLG 10 (0-99); LIPEMIA HEMOLYSIS FLAG 80 (0-99); MEAN CELL HEMOGLOBIN 30.9 pg (27.9-34.1); MEAN CELL HEMOGLOBIN CONCENTR. 31.8 g/dL (32.4-36.7); MEAN CELL VOLUME 97.3 fL (81.5-99.8); MEAN PLATELET VOLUME 10.2 fL (8.7-11.7); PLATELET CLUMPS FLAG 20 (0-99); PLATELET COUNT 407 10^3/uL (150-400); RED BLOOD CELL COUNT 2.23 10^6/uL (4.18-5.33)
[2016-08-13 06:17] LABS: HEMOGLOBIN 6.9 g/dL (12.6-16.3)
[2016-08-13 06:57] LABS: MACROCYTES 1+; MICROCYTES 1+; POLYCHROMASIA 1+
[2016-08-13 06:58] LABS: PLATELET ESTIMATE INCREASED (ADEQ)
[2016-08-13 07:18] LABS: ALBUMIN 1.6 g/dL (3.5-5.0); ANION GAP 4 mEq/L (8-16); CALCIUM 7.2 mg/dL (8.5-10.4); CARBON DIOXIDE 23 mEq/l (22-31); CHLORIDE 108 mEq/L (97-110); CREATININE 0.4 mg/dL (0.6-1.0); GLOMERULAR FILTRATION RATE > 60; GLUCOSE 79 mg/dL (70-100); MAGNESIUM 1.9 mg/dL (1.6-2.3); POTASSIUM 3.6 mEq/L (3.5-5.2); SODIUM 135 mEq/L (134-144)
[2016-08-13] MEDS: HEPARIN 10,000 UNIT/10 ML MDV IVP PRN ×2 (08:24→22:50)
[2016-08-13] MEDS: MULTIVITAMINS 1 EACH TAB PO SCH (09:35)
[2016-08-13] MEDS: FAMOTIDINE 20 MG TAB PO SCH ×2 (09:35→22:54)
--- NOTE | 2016-08-13 14:34 | SOAPPROG ---
[id number]? - differential is broad and includes infection, inflammation, malignancy 2. Clotting - w/u and therapy underway - complicated by hemodynamic compromise, recently off levophed 3. Malnutrition - etiology? - poor po intake? - protein losses from as yet undiagnosed gi ailments? - poor absorption in setting of possible gi disease? - calorie count underway Plan: 1. Diarrhea/malnutrition - recommend Colonoscopy/EGD once safe to prep, undergo anesthesia, and be off anticoagulation temporarily - continue supportive care otherwise - infectious w/u negative - concern about inflammatory bowel disease - rarer illness, such as protein losing enteropathy, also possible - could consider malabsorption stool work-up, pending results of endoscopic eval - add celiac labs - will follow, call with questions 08/13/16 14:48 Subjective: CC: feeling weak S: no fever no chills feeling weak ongoing diarrhea with bleeding Objective: Vital Signs Temp Pulse Resp BP Pulse Ox 36.6 C 105 H 16 95/66 L 92 08/13/16 10:00 08/13/16 10:00 08/13/16 10:00 08/13/16 10:00 08/13/16 10:00 Microbiology 08/07/16 20:12 Blood Culture - Final Blood 08/10/16 16:20 Stool Culture - Final Stool Laboratory Results 08/13/16 06:00 08/13/16 06:00 08/12/16 08/13/16 08/14/16 05:59 05:59 05:59 Intake Total 4008 2090 Output Total 1999 1600 Balance 2007 490 PT 19.3 SEC (12.0-15.0) H 08/07/16 21:50 INR 1.62 (0.83-1.16) H 08/07/16 21:50 Laboratory Tests 08/08/16 08/09/16 08/10/16 00:15 13:05 16:20 WBC Hgb Hct Plt Count Sodium Potassium Chloride Carbon Dioxide Anion Gap BUN Albumin Urine WBC 15-25 H Stool for White Cells 3+ H Stool for RBCs RARE H C. difficile Tox (PCR) NEGATIVE Cryptosporidium Ag NEGATIVE Giardia Antigen NEGATIVE Direct Microscop Exam NONE SEEN 08/13/16 06:00 WBC 9.55 H Hgb 6.9 L Hct 21.7 L Plt Count 407 H Sodium 135 Potassium 3.6 Chloride 108 Carbon Dioxide 23 Anion Gap 4 BUN < 2 L Albumin 1.6 L Urine WBC Stool for White Cells Stool for RBCs C. difficile Tox (PCR) Cryptosporidium Ag Giardia Antigen Direct Microscop Exam Physical Exam - Physical Exam EENT: PERRL/EOMI Respiratory: lungs clear Cardiac/Chest: regular rate, rhythm Abdomen: normal bowel sounds Skin: normal color Neuro/Psych: no motor/sensory deficits ICD10 Worksheet Patient Problems: Problems Problem Status Diagnosed Dehydration Acute Pulmonary embolism Acute Anemia Acute C. difficile diarrhea Acute 04/21/16 Superficial thrombophlebitis Acute
[2016-08-13 14:50] LABS: INTERPRETATION See Comments (())
--- NOTE | 2016-08-13 17:47 | HOSPPROG ---
Hospitalist Progress Note Assessment/Plan: DIAGNOSIS: # ACUTE MASSIVE PULMONARY EMBOLUS WITH HYPOTENSION AND LACTIC ACIDOSIS, STILL REQUIRING PRESSOR SUPPORT FOR HYPOTENSION; SUSPECT THERE HAS BEEN PE AND DVT GOING ON FOR MONTHS # STATUS POST TPA WITHOUT COMPLICATION # ELEVATED TROPONIN DUE TO THE ABOVE # PULMONARY HYPERTENSION # CHRONIC DIARRHEA, WITH HIGH SUSPICION FOR CHRONIC INFLAMMATORY BOWEL DISEASE UNDIAGNOSED DUE TO PATIENT'S UNWILLINGNESS TO HAVE AN ENDOSCOPY SO FAR # ANEMIA, SUSPECT DUE TO CHRONIC DISEASE RELATED TO HER BOWEL ILLNESS AND NUTRITIONAL DEFICIENCIES # SEVERE PROTEIN CALORIE MALNUTRITION PLANS: -transfusion of 1 unit packed red blood cells today and recheck her blood count in the morning. I reviewed this in great detail with the patient and her mother including the risks benefits of transfusion and she is consenting to transfusion -Continue heparin and transition to Coumadin after endoscopies -she should have lifelong anticoagulation -colonoscopy and EGD when she is stabilized from pulmonary standpoint, likely this week -will continue attempts at increased mobility SUBJECTIVE: Has not walked as much today. 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, my personal review: Sinus rhythm with tachycardia Exam: alert oriented skin warm dry color ok good distal capillary refill in digits resps still a bit tachypneic but not labored lungs clear BSs heart regular abd soft nondistended nontender, bowel sounds present limbs warm, still with bilateral leg edema, perhaps even increased today iv site ok No bleeding or bruising Laboratory data: Her hemoglobin is now down to 6 other lab stable Objective: Vital Signs Temp Pulse Resp BP Pulse Ox 37.1 C 109 H 16 95/63 L 95 08/13/16 15:47 08/13/16 15:47 08/13/16 15:47 08/13/16 15:47 08/13/16 15:47 Microbiology 08/11/16 16:30 Urine Culture - Final Unspecified Gram Negative Jase Five Or More [place] Types 08/07/16 20:12 Blood Culture - Final Blood 08/10/16 16:20 Stool Culture - Final Stool Laboratory Results 08/13/16 06:00 08/13/16 06:00 08/12/16 08/13/16 08/14/16 06:59 06:59 06:59 Intake Total 4007 2089 Output Total 2000 1600 Balance 2007 490 PT 19.3 SEC (12.0-15.0) H 08/07/16 21:50 INR 1.62 (0.83-1.16) H 08/07/16 21:50 ICD10 Worksheet Patient Problems: Problems Problem Status Diagnosed Dehydration Acute Pulmonary embolism Acute Anemia Acute C. difficile diarrhea Acute 04/21/16 Superficial thrombophlebitis Acute
[2016-08-13 19:11] LABS: POTASSIUM 3.5 mEq/L (3.5-5.2)
[2016-08-13] MEDS ORDERED: POTASSIUM CL 10 MEQ TAB PO ONE (22:43)
[2016-08-14] MEDS: HYDROmorphONE/DILAUDID 1 MG/ML SYR IVP PRN ×4 (01:16→20:23)
[2016-08-14 05:13] LABS: % IMMATURE GRANULYOCYTES 0.7 % (0.0-1.1); ABSOLUTE IMMATURE GRANULOCYTES 0.06 10^3/uL (0.00-0.10); ADD DIFF? NO; ADD MORPH? NO; ADD SCAN? NO; ATYPICAL LYMPHOCYTE FLAG 90 (0-99); FRAGMENT RBC FLAG 0 (0-99); HEMATOCRIT 23.2 % (38.0-47.0); HEMOGLOBIN 7.6 g/dL (12.6-16.3); LEFT SHIFT FLG 20 (0-99); LIPEMIA HEMOLYSIS FLAG 80 (0-99); MEAN CELL HEMOGLOBIN 31.3 pg (27.9-34.1); MEAN CELL HEMOGLOBIN CONCENTR. 32.8 g/dL (32.4-36.7); MEAN CELL VOLUME 95.5 fL (81.5-99.8); MEAN PLATELET VOLUME 10.3 fL (8.7-11.7); PLATELET CLUMPS FLAG 0 (0-99); PLATELET COUNT 414 10^3/uL (150-400); RED BLOOD CELL COUNT 2.43 10^6/uL (4.18-5.33); RED CELL DISTRIBUTION WIDTH 17.7 % (11.5-15.2)
[2016-08-14 05:43] LABS: MAGNESIUM 1.8 mg/dL (1.6-2.3); POTASSIUM 3.5 mEq/L (3.5-5.2)
[2016-08-14] MEDS ORDERED: POTASSIUM CL 10 MEQ TAB PO ONE (07:59)
--- NOTE | 2016-08-14 07:59 | SOAPPROG ---
SOAP Progress Note Assessment/Plan: Assessment: 1. Diarrhea/BRBPR - etiology? - significant clinically - contributing to malnutrition? - differential is broad and includes infection, inflammation, malignancy 2. Clotting - w/u and therapy underway - complicated by hemodynamic compromise, recently off levophed 3. Malnutrition - etiology? - poor po intake? - protein losses from as yet undiagnosed gi ailments? - poor absorption in setting of possible gi disease? - calorie count underway Plan: 1. Diarrhea/malnutrition - recommend Colonoscopy/EGD once safe to prep, undergo anesthesia, and be off anticoagulation temporarily - celiac labs pending - defer any empiric therapies, pending fulfilment of work-up - continue supportive care otherwise - infectious w/u negative - concern about inflammatory bowel disease - rarer illness, such as protein losing enteropathy, also possible - will defer that more esoteric w/u pending results of endoscopy - a protein losing enteropathy would be associated with hypercoagulable state... but so to could an inflammatory condition - no new recommendations - continue aggressive po nutitional support - degree of despondency is notable? there may be some degree of overlapping psych illness? - will sign off, for now - please call with questions OR when patient is deemed stable enough from a cardiopulmonary stand point to undergo prep and anesthesia OFF anticoagulation. - anticipate EGD/Colon will be useful prior to dc home from hospital, but secondary urgency in setting of acute PE management. this week? next week? 08/14/16 08:08 Subjective: CC: weak S: ongoing fatigue and weakness no fever no chills ongoing mild SOB eating regular diet bowel symptoms seem to have improved some in hospital Objective: Vital Signs Temp Pulse Resp BP Pulse Ox 36.7 C 102 H 16 101/64 94 08/14/16 01:00 08/14/16 01:00 08/14/16 01:00 08/14/16 01:00 08/14/16 01:00 Microbiology 08/11/16 16:30 Urine Culture - Final Unspecified Gram Negative Jase Five Or More [place] Types 08/07/16 20:12 Blood Culture - Final Blood Laboratory Results 08/14/16 04:55 08/14/16 04:55 08/13/16 08/14/16 08/15/16 05:59 05:59 05:59 Intake Total 2090 3721 Output Total 1600 300 Balance 490 3421 PT 19.3 SEC (12.0-15.0) H 08/07/16 21:50 INR 1.62 (0.83-1.16) H 08/07/16 21:50 Laboratory Tests 08/13/16 08/14/16 18:15 04:55 WBC 8.36 Hgb 7.6 L Hct 23.2 L Plt Count 414 H IgA Pending Celiac Disease Interp Pending HLA-DQA1 Pending HLA-DQB1 Pending HLA Celiac Gene Pairs Pending Physical Exam - Physical Exam EENT: PERRL/EOMI Respiratory: lungs clear Cardiac/Chest: regular rate, rhythm Abdomen: normal bowel sounds Skin: normal color Extremities: normal range of motion, swelling Neuro/Psych: no motor/sensory deficits ICD10 Worksheet Patient Problems: Problems Problem Status Diagnosed Dehydration Acute Pulmonary embolism Acute Anemia Acute C. difficile diarrhea Acute 04/21/16 Superficial thrombophlebitis Acute
[2016-08-14] MEDS ORDERED: MAGNESIUM SULF 1 GM/DEXTROSE 100 ML IV ONE (08:11)
[2016-08-14] MEDS ORDERED: CHOLESTYRAMINE/SUCROSE 4 GM PKT PO PRN (08:56)
--- NOTE | 2016-08-14 09:12 | HOSPPROG ---
Hospitalist Progress Note Assessment/Plan: ASSESSMENT/PLAN: # acute PE status post tPA - certainly chronic component to the VTE - continue heparin drip # pulm htn # acute hypoxic respiratory failure - multifactorial, PE, pleural effusions # anasarca - Lasix 20 IV today, follow blood pressures; may need albumin for diuresis # severe protein calorie malnutrition - dietary following, calorie count in progress # diarrhea - needs colonoscopy when more stable respiratory paez, appreciate Dr. Acosta assistance # anemia - s/p 1U PRBC; suspect GI loss # FCFT SUBJECTIVE: Very short of breath with minimal activity OBJECTIVE: Vitals reviewed Right IJ without erythema Comfortable, no acute distress Regular rate and rhythm, no murmurs rubs or gallops Mild respiratory distress, diminished breath sounds bilaterally, no rales or rhonchi Abdomen with normal bowel sounds, soft, nontender, nondistended IMAGING: Chest x-ray personally viewed and interpreted Objective: Vital Signs Temp Pulse Resp BP Pulse Ox 36.7 C 102 H 16 101/64 94 08/14/16 01:00 08/14/16 01:00 08/14/16 01:00 08/14/16 01:00 08/14/16 01:00 Microbiology 08/11/16 16:30 Urine Culture - Final Unspecified Gram Negative Jase Five Or More [place] Types 08/07/16 20:12 Blood Culture - Final Blood Laboratory Results 08/14/16 04:55 08/14/16 04:55 08/13/16 08/14/16 08/15/16 05:59 05:59 05:59 Intake Total 2090 3721 Output Total 1600 300 Balance 490 3421 PT 19.3 SEC (12.0-15.0) H 08/07/16 21:50 INR 1.62 (0.83-1.16) H 08/07/16 21:50 ICD10 Worksheet Patient Problems: Problems Problem Status Diagnosed Dehydration Acute Pulmonary embolism Acute Anemia Acute C. difficile diarrhea Acute 04/21/16 Superficial thrombophlebitis Acute
[2016-08-14] MEDS: MULTIVITAMINS 1 EACH TAB PO SCH (10:33)
[2016-08-14] MEDS: FAMOTIDINE 20 MG TAB PO SCH ×2 (10:33→20:23)
[2016-08-14] MEDS: FUROSEMIDE 20 MG/2 ML VIAL IVP SCH (10:33)
[2016-08-14] MEDS ORDERED: POTASSIUM Cl (KCl) 50 ML IV SCH (11:30)
[2016-08-14] MEDS: POTASSIUM Cl (KCl) 100 ML IV SCH ×3 (12:23→16:02)
[2016-08-14] MEDS ORDERED: PROMETHAZINE HCL 25 MG/ML INJ IV PRN (20:13)
[2016-08-14 21:08] LABS: POTASSIUM 3.6 mEq/L (3.5-5.2)
[2016-08-14] MEDS ORDERED: POTASSIUM CL 20 MEQ TAB PO ONE (22:43)
[2016-08-15] MEDS: HYDROmorphONE/DILAUDID 1 MG/ML SYR IVP PRN ×3 (02:08→21:37)
[2016-08-15] MEDS: HEPARIN/DEXTROSE 500 ML IV SCH ×3 (02:09→20:22)
[2016-08-15] MEDS: LOPERAMIDE HCL 2 MG CAP PO PRN ×4 (06:05→20:22)
[2016-08-15 06:10] LABS: % IMMATURE GRANULYOCYTES 0.7 % (0.0-1.1); ABSOLUTE IMMATURE GRANULOCYTES 0.06 10^3/uL (0.00-0.10); ADD DIFF? NO; ADD MORPH? NO; ADD SCAN? NO; ATYPICAL LYMPHOCYTE FLAG 80 (0-99); FRAGMENT RBC FLAG 0 (0-99); HEMATOCRIT 23.8 % (38.0-47.0); HEMOGLOBIN 7.7 g/dL (12.6-16.3); LEFT SHIFT FLG 60 (0-99); LIPEMIA HEMOLYSIS FLAG 80 (0-99); MEAN CELL HEMOGLOBIN 30.8 pg (27.9-34.1); MEAN CELL HEMOGLOBIN CONCENTR. 32.4 g/dL (32.4-36.7); MEAN CELL VOLUME 95.2 fL (81.5-99.8); MEAN PLATELET VOLUME 9.9 fL (8.7-11.7); PLATELET CLUMPS FLAG 0 (0-99); PLATELET COUNT 409 10^3/uL (150-400); RED CELL DISTRIBUTION WIDTH 18.1 % (11.5-15.2)
[2016-08-15 07:16] LABS: ANION GAP 7 mEq/L (8-16); CALCIUM 6.9 mg/dL (8.5-10.4); CARBON DIOXIDE 24 mEq/l (22-31); CHLORIDE 103 mEq/L (97-110); CREATININE 0.4 mg/dL (0.6-1.0); GLOMERULAR FILTRATION RATE > 60; GLUCOSE 93 mg/dL (70-100); MAGNESIUM 1.9 mg/dL (1.6-2.3); POTASSIUM 3.7 mEq/L (3.5-5.2); SODIUM 134 mEq/L (134-144)
[2016-08-15] MEDS: MULTIVITAMINS 1 EACH TAB PO SCH (09:11)
[2016-08-15] MEDS: FAMOTIDINE 20 MG TAB PO SCH ×2 (09:11→20:22)
[2016-08-15] MEDS: FUROSEMIDE 20 MG/2 ML VIAL IVP SCH ×2 (09:22→16:22)
--- NOTE | 2016-08-15 11:30 | HOSPPROG ---
Hospitalist Progress Note Assessment/Plan: ASSESSMENT/PLAN: # acute PE status post tPA - certainly chronic component to the VTE - continue heparin drip # pulm htn # acute hypoxic respiratory failure - multifactorial, PE, pleural effusions # anasarca - - blood pressures tolerated Lasix, increase to 20 mg IV twice daily; add potassium supplement scheduled # severe protein calorie malnutrition - dietary following, calorie count in progress # diarrhea - needs colonoscopy when more stable respiratory paez, appreciate Dr. Acosta assistance - request that I recheck C diff - did not tolerate Questran, start Lomotil, continue Imodium # anemia - s/p 1U PRBC; suspect GI loss # hemorrhoid/anal fissure? - will ask GI to eval # FCFT # high risk SUBJECTIVE: Still feels very weak OBJECTIVE: Vitals reviewed Right IJ without erythema Depressed affect Comfortable, no acute distress Regular rate and rhythm, no murmurs rubs or gallops Mild respiratory distress, diminished breath sounds bilaterally, no rales or rhonchi Abdomen with normal bowel sounds, soft, nontender, nondistended Objective: Vital Signs Temp Pulse Resp BP Pulse Ox 37.2 C 109 H 16 94/63 L 92 08/15/16 08:00 08/15/16 08:00 08/15/16 08:00 08/15/16 08:00 08/15/16 08:00 Laboratory Results 08/15/16 05:55 08/15/16 05:55 08/14/16 08/15/16 08/16/16 05:59 05:59 05:59 Intake Total 3721 4696 Output Total 300 2700 Balance 3421 1995 PT 19.3 SEC (12.0-15.0) H 08/07/16 21:50 INR 1.62 (0.83-1.16) H 08/07/16 21:50 ICD10 Worksheet Patient Problems: Problems Problem Status Diagnosed Dehydration Acute Pulmonary embolism Acute Anemia Acute C. difficile diarrhea Acute 04/21/16 Superficial thrombophlebitis Acute
[2016-08-15] MEDS: POTASSIUM CL 20 MEQ TAB PO SCH (12:09)
[2016-08-15] MEDS: DIPHENOXYLATE/ATROPINE LOMOTIL 1 TAB PO PRN ×2 (12:09→21:36)
[2016-08-15] MEDS ORDERED: POTASSIUM CL 10 MEQ TAB PO ONE ×2 (16:39→20:25)
[2016-08-15 19:41] LABS: POTASSIUM 3.3 mEq/L (3.5-5.2)
[2016-08-15] MEDS ORDERED: PREPARATION H 51 GM CRTUBE PR PRN (19:51)
[2016-08-15] MEDS ORDERED: POTASSIUM Cl (KCl) 100 ML IV SCH (20:30)
[2016-08-15] MEDS ORDERED: TEMAZEPAM 15 MG CAP PO ONE (22:30)
[2016-08-16] MEDS ORDERED: LIDOCAINE 1% 30 ML SDV ONE (01:19)
--- NOTE | 2016-08-16 01:45 | POSTOPPROG ---
Post Op Note Date of Operation: 08/16/16 Surgeon: Corey Jessica Pre-op Diagnosis: right pneumothorax Post-op Diagnosis: same Indication: same Procedure: right chest tube placement Findings: right pneumo Inf/Abcess present in the surg proc area at time of surgery?: No Complications: none
--- NOTE | 2016-08-16 01:51 | HOSPPROG ---
Hospitalist Progress Note Assessment/Plan: Critical care note I was notified by the RN on 1 of the patient's oxygen saturations are in the mid 80s despite high-flow O2. Chart was reviewed. A stat chest x-ray was done which I visualized personally interpreted that showed a large right-sided pneumothorax with tracheal shift Objective: 08/16/16 00:40 Heart Rate 112 H Respiratory 28 H Rate O2 Sat (%) 88 L Blood Pressure 92/57 L Mean Arterial 68 Pressure (MAP) Breath sounds diminished right base patient is uncomfortable tachycardic and tachypneic assessment/plan: 51-year-old female who was admitted for acute PE status post tPA with worsening respiratory failure found to have: Large right-sided pneumothorax - consult Dr. Jessica for chest tube placement - transfer to ICU greater than 30 minutes were spent in the care of this critically ill patient Objective: Vital Signs Temp Pulse Resp BP Pulse Ox 36.4 C 112 H 28 H 92/57 L 88 L 08/16/16 00:40 08/16/16 00:40 08/16/16 00:40 08/16/16 00:40 08/16/16 00:40 Laboratory Results 08/15/16 05:55 08/15/16 18:45 08/14/16 08/15/16 08/16/16 05:59 05:59 05:59 Intake Total 3721 4696 Output Total 300 2700 Balance 3421 1995 PT 19.3 SEC (12.0-15.0) H 08/07/16 21:50 INR 1.62 (0.83-1.16) H 08/07/16 21:50 ICD10 Worksheet Patient Problems: Problems Problem Status Diagnosed Dehydration Acute Pulmonary embolism Acute Anemia Acute C. difficile diarrhea Acute 04/21/16 Superficial thrombophlebitis Acute
--- NOTE | 2016-08-16 02:03 | GPN ---
[f rep st] PROCEDURE NOTE Corrected report PREPROCEDURE DIAGNOSIS: Right pneumothorax. POSTPROCEDURE DIAGNOSIS: Right pneumothorax. PROCEDURE: Right chest tube placement. INDICATIONS: Asked to see the patient by Dr. Dav Loo in regard to recent hypoxemia and chest x-ray documenting a large right pneumothorax. DESCRIPTION OF PROCEDURE: Consent was obtained from the patient. The site was marked and a time-out done. The chest was scrubbed with ChloraPrep, draped in the usual sterile fashion. 1% lidocaine was infiltrated in the midclavicular line approximately 3rd interspace. A small skin incision was made and a pneumo catheter inserted until the air was aspirated. The catheter was then advanced several inches and connected with tubing to a Heimlich valve. A Tegaderm was used to hold the catheter in place which was quite secure. It was obvious that air was venting from the system and a chest x-ray was ordered. The patient's oxygen saturations improved almost immediately. The patient tolerated the procedure well. /[id number]/MODL Avila WT, 09/03/16, maite CRAIG
[2016-08-16] MEDS: HEPARIN/DEXTROSE 500 ML IV SCH ×2 (04:58→16:10)
[2016-08-16] MEDS: LOPERAMIDE HCL 2 MG CAP PO PRN ×4 (05:37→17:55)
[2016-08-16 05:40] LABS: ANION GAP 6 mEq/L (8-16); CALCIUM 7.8 mg/dL (8.5-10.4); CARBON DIOXIDE 25 mEq/l (22-31); CHLORIDE 102 mEq/L (97-110); CREATININE 0.4 mg/dL (0.6-1.0); GLOMERULAR FILTRATION RATE > 60; GLUCOSE 92 mg/dL (70-100); MAGNESIUM 2.1 mg/dL (1.6-2.3); POTASSIUM 3.8 mEq/L (3.5-5.2); SODIUM 133 mEq/L (134-144)
[2016-08-16 05:41] LABS: % IMMATURE GRANULYOCYTES 0.4 % (0.0-1.1); ABSOLUTE IMMATURE GRANULOCYTES 0.05 10^3/uL (0.00-0.10); ADD DIFF? NO; ADD MORPH? NO; ADD SCAN? NO; ATYPICAL LYMPHOCYTE FLAG 60 (0-99); FRAGMENT RBC FLAG 0 (0-99); HEMATOCRIT 25.4 % (38.0-47.0); HEMOGLOBIN 8.4 g/dL (12.6-16.3); LEFT SHIFT FLG 80 (0-99); LIPEMIA HEMOLYSIS FLAG 80 (0-99); MEAN CELL HEMOGLOBIN 31.6 pg (27.9-34.1); MEAN CELL HEMOGLOBIN CONCENTR. 33.1 g/dL (32.4-36.7); MEAN CELL VOLUME 95.5 fL (81.5-99.8); MEAN PLATELET VOLUME 10.4 fL (8.7-11.7); PLATELET CLUMPS FLAG 0 (0-99); PLATELET COUNT 417 10^3/uL (150-400); RED BLOOD CELL COUNT 2.66 10^6/uL (4.18-5.33); RED CELL DISTRIBUTION WIDTH 18.3 % (11.5-15.2)
[2016-08-16] MEDS ORDERED: POTASSIUM CL 10 MEQ TAB PO ONE ×2 (07:33→18:47)
--- NOTE | 2016-08-16 07:49 | DX ---
Portable Chest 6:19 AM History: Follow-up right pneumothorax Comparison: 1:52 AM Findings: There is little if any change in the large right pneumothorax. A small bore right chest tub e overlies the right hemithorax. A right pleural effusion and right lower lung zone consolidation rem ain. Patchy peripheral consolidation in the left lung associated with a small left pleural effusion a ppears slightly worse. A right external jugular venous catheter remains in place with tip overlying t he right atrium. Impression:1. No improvement in the large right hydropneumothorax. 2. Suspect bilateral pneumonia.
[2016-08-16] MEDS: HEPARIN 10,000 UNIT/10 ML MDV IVP PRN ×2 (07:50→13:12)
--- NOTE | 2016-08-16 07:54 | DX ---
Portable Chest, 1:52 AM, 2 views History: Post right chest tube placement Comparison: 00:44AM Findings: A small bore right chest tube has been placed. The large right pneumothorax is partially re expanded. Bilateral lung consolidation and pleural effusions, right greater than left are present. A right external jugular venous catheter remains in place with tip overlying the right atrium. Impression: Some improvement in the still large right pneumothorax.
[2016-08-16] MEDS: FUROSEMIDE 20 MG/2 ML VIAL IVP SCH (07:57)
--- NOTE | 2016-08-16 07:57 | DX ---
Portable Chest 00:44 AM History: Worsening hypoxia Comparison: August 11, 2016 Findings: There is a new large right pneumothorax. There may be an element of tension. Bilateral pleu ral effusions are present right greater than left. I suspect there is redistribution pulmonary edema into the left lung superimposed upon underlying pneumonia. The right lung is nearly completely collap sed. Impression: New large right hydropneumothorax, possibly with tension. Results called to Dr. Dav Loo at 12:[address] Douglas.
--- NOTE | 2016-08-16 08:35 | PDINTPN ---
Hob Machine Operator Progress Note Assessment/Plan: Assessment/Plan: * Pulmonary embolism: Acute on chronic. Status post tPA. -heparin on hold * Resp failure-high Fio2 req and resp rate -follow closely. May need intubation * LE edema- secondary to volume resuscitation with acute PE and pulmonary hypertension, as well as malnutrition * Large hydropneumothorax-small bore CT placed last pm. Minimal improvement -will discuss with surgery * Hypotension: Off Levophed. * Pulmonary hypertension: Secondary To #1. * Diarrhea: Evaluation in progress. * Anemia: Hematocrit stable at 23. No evidence of a bleeding source. Diarrhea not bloody. * Malaise, fatigue, failure to thrive: On going now times months, antedating this presentation . Multifactorial. Evaluation in progress. Will need to consider underlying chronic inflammatory bowel disease, occult malignancy, etc. * Malnutrition Subjective: Multiple complaints. Breathless Objective: Vital Signs Temp Pulse Resp BP Pulse Ox 36.8 C 125 H 35 H 93/60 L 94 08/16/16 08:00 08/16/16 08:00 08/16/16 08:00 08/16/16 08:00 08/16/16 08:00 Laboratory Results 08/16/16 04:53 08/16/16 04:53 08/15/16 08/16/16 08/17/16 05:59 05:59 05:59 Intake Total 4696 50 Output Total 2700 Balance 1995 50 PT 19.3 SEC (12.0-15.0) H 08/07/16 21:50 INR 1.62 (0.83-1.16) H 08/07/16 21:50 Physical Exam - Physical Exam General Appearance: alert, moderate distress EENT: PERRL/EOMI, normal ENT inspection Neck: non-tender, full range of motion, supple, normal inspection Respiratory: decreased breath sounds (right), No normal breath sounds, No stridor, No wheezing Cardiac/Chest: normal peripheral pulses, regular rate, rhythm Peripheral Pulses: 2+: carotid (R), carotid (L), femoral (R), femoral (L), dorsalis-pedis (R), dorsalis-pedis (L) Abdomen: normal bowel sounds, non-tender, soft Pelvic Exam: deferred Rectal: deferred Skin: normal color, warm/dry ICD10 Worksheet Patient Problems: Problems Problem Status Diagnosed Dehydration Acute Pulmonary embolism Acute Anemia Acute C. difficile diarrhea Acute 04/21/16 Superficial thrombophlebitis Acute
[2016-08-16] MEDS ORDERED: LIDOCAINE 1% 30 ML SDV IF ONE (08:56)
[2016-08-16] MEDS: HYDROmorphONE/DILAUDID 1 MG/ML SYR IVP PRN ×3 (09:49→20:48)
[2016-08-16] MEDS ORDERED: ALBUMIN 5% 250 ML BOTTLE IV ONE (10:34)
[2016-08-16] MEDS ORDERED: ALBUMIN 25% 200 ML IV ONE (10:40)
[2016-08-16] MEDS: FAMOTIDINE 20 MG TAB PO SCH ×2 (10:44→20:28)
[2016-08-16] MEDS: POTASSIUM CL 20 MEQ TAB PO SCH (10:46)
[2016-08-16] MEDS: MULTIVITAMINS 1 EACH TAB PO SCH (10:46)
--- NOTE | 2016-08-16 11:07 | SOAPPROG ---
SOAP Progress Note Assessment/Plan: Assessment/Plan - 51yo F c DVT/PE fully anticoagulated c large R hemo/ptx - successfully placed 28Fr CT this AM c 1400cc out, straw colored fluid. Cx to be taken - CXR shows tube curls medially down to diaphragm but fluoid and air completely resolved so overall happy with the placement - Cont to suction as there is large expiratory air leak for now 08/16/16 11:01 Subjective: SOB improved s/p large bore CT placement Objective: Vital Signs Temp Pulse Resp BP Pulse Ox 36.8 C 125 H 37 H 91/60 L 94 08/16/16 08:00 08/16/16 09:45 08/16/16 09:45 08/16/16 09:45 08/16/16 09:45 Laboratory Results 08/16/16 04:53 08/16/16 04:53 08/15/16 08/16/16 08/17/16 05:59 05:59 05:59 Intake Total 4696 50 Output Total 2700 Balance 1995 50 PT 19.3 SEC (12.0-15.0) H 08/07/16 21:50 INR 1.62 (0.83-1.16) H 08/07/16 21:50 ICD10 Worksheet Patient Problems: Problems Problem Status Diagnosed Dehydration Acute Pulmonary embolism Acute Anemia Acute C. difficile diarrhea Acute 04/21/16 Superficial thrombophlebitis Acute
--- NOTE | 2016-08-16 11:13 | DX ---
Portable Chest, Single View. HISTORY: Chest tube placement. FINDINGS: A right large bore chest tube has been placed with its tip directed toward the medial right lung base. There has been near complete resolution of the pneumothorax on the right. The small bore chest tube remains but appears kinked. Heart size is stable. Patchy opacification is seen in the left lung and small left pleural effusion similar in appearance. Right IJ central line is in stable posit ion. IMPRESSION: Placement of a large bore right chest tube with near complete resolution of the right pne umothorax.
--- NOTE | 2016-08-16 12:12 | HOSPPROG ---
Hospitalist Progress Note Assessment/Plan: ASSESSMENT/PLAN: # acute ptx/pleural effusion s/p chest tubes - suspect d/t infarcted lung from PE - discussed with Dr Christensen - continue chest tubes # acute PE status post tPA - certainly chronic component to the VTE - continue heparin drip # acute hypoxic respiratory failure - worsened again post-ptx # pulm htn # anasarca - hold lasix today # severe protein calorie malnutrition - dietary following, calorie count in progress # diarrhea - needs colonoscopy when more stable respiratory paez, appreciate Dr. Acosta assistance - did not tolerate Questran, start Lomotil, continue Imodium # anemia - s/p 1U PRBC; suspect GI loss # hemorrhoid/anal fissure? - will get GI eval # FCFT 40 minutes CC time spent directly managing patient care SUBJECTIVE: respiratory decompensation overnight, required chest tube, then repeat 28f chest tube today OBJECTIVE: Vitals reviewed Right IJ without erythema Depressed affect mod resp distress Regular rate and rhythm, no murmurs rubs or gallops mod resp distress, CT in R lower chest with serosanguineous output, diminished R sided BS Abdomen with normal bowel sounds, soft, nontender, nondistended Objective: Vital Signs Temp Pulse Resp BP Pulse Ox 36.8 C 125 H 37 H 91/60 L 94 08/16/16 08:00 08/16/16 09:45 08/16/16 09:45 08/16/16 09:45 08/16/16 09:45 Laboratory Results 08/16/16 04:53 08/16/16 04:53 08/15/16 08/16/16 08/17/16 05:59 05:59 05:59 Intake Total 4696 50 Output Total 2700 Balance 1995 50 PT 19.3 SEC (12.0-15.0) H 08/07/16 21:50 INR 1.62 (0.83-1.16) H 08/07/16 21:50 ICD10 Worksheet Patient Problems: Problems Problem Status Diagnosed Dehydration Acute Pulmonary embolism Acute Anemia Acute C. difficile diarrhea Acute 04/21/16 Superficial thrombophlebitis Acute
--- NOTE | 2016-08-16 13:24 | GOP ---
[f rep st] OPERATIVE REPORT DATE OF OPERATION: 08/16/2016 SURGEON: Mitch Christensen MD SKI PATROLLER: None. ANESTHESIA: Local. PREOPERATIVE DIAGNOSIS: Persistent hydropneumothorax. POSTOPERATIVE DIAGNOSIS: Persistent hydropneumothorax. PROCEDURE PERFORMED: Right 28-Liberian thoracostomy tube placement. FINDINGS: 1. Over 1 L of serous, yellow-tinged fluid removed. 2. Blowing expiratory air leak. SPECIMENS: None. ESTIMATED BLOOD LOSS: 3 cc. DESCRIPTION OF PROCEDURE: After discussing the risks, benefits, and alternatives, the patient signed the consent. A [employer] time-out was performed. Her right chest was then prepped and draped in the typical sterile fashion. I used 1% lidocaine for a field block throughout the proc edure. At the approximate 5th intercostal space, at the anterior axillary line, after significant an esthesia, I used a scalpel to make an incision. I dissected through the subcutaneous tissue where I encountered the intercostal space. I then dissected through the intercostal space and entered the ch est cavity proper, through which digital inspection showed that I was indeed in the chest. Through t his, I inserted a 28-Liberian straight chest tube without any incident. I connected it to the Pleur-Ev ac and attached it to the skin with an 0 silk suture. I got about 1 L of straw-tinged fluid out with a blowing expiratory air leak noted at the time of placement. Sterile dressings were placed. The p atient tolerated the procedure well without any intraoperative complications. DRAINS: A 28-Liberian straight chest tube. /[id number]/MODL
--- NOTE | 2016-08-16 13:31 | DX ---
Portable Chest, Single View. HISTORY: Hypoxia. Breathing is deteriorating. COMPARISON: X-ray performed earlier today. FINDINGS: The small-bore chest tube has been removed. The right large-bore chest tube is in stable po sition. However, there is large right pneumothorax with atelectasis in the right lung. Left lung is s table. No other significant interval change. IMPRESSION: Removal of the small-bore chest tube and stable position of the large-bore chest tube. La rge right pneumothorax. Results called to the ICU.
--- NOTE | 2016-08-16 13:33 | DX ---
Portable Chest Single View. HISTORY: Repositioning of chest tube. COMPARISON: Chest x-ray performed earlier today. FINDINGS: There has been repositioning of the right chest tube. There is now interval decrease in the right pneumothorax with minimal remaining at the right apex. Patchy opacifications seen in the left lung which are stable. Heart size is enlarged and stable. No other significant interval change. IMPRESSION: Repositioning of the large-bore chest tube on the right with near complete resolution of the right pneumothorax. Results called to the ICU.
[2016-08-16] MEDS ORDERED: NS 500 ML IV ONE (13:42)
[2016-08-16] MEDS: NS 1,000 ML IV SCH (16:30)
[2016-08-16] MEDS: LORazepam 2 MG/ML INJ IVP PRN (17:55)
[2016-08-16 18:45] LABS: POTASSIUM 3.4 mEq/L (3.5-5.2)
[2016-08-16 22:13] LABS: INR 2.76 (0.83-1.16); PROTIME(PATIENT) 29.5 SEC (12.0-15.0)
[2016-08-16] MEDS: ENOXAPARIN 80 MG/0.8 ML SYR SC SCH (23:27)
[2016-08-17] MEDS: NS 1,000 ML IV SCH ×2 (05:02→23:14)
[2016-08-17 05:33] LABS: POTASSIUM 3.7 mEq/L (3.5-5.2)
[2016-08-17] MEDS: LORazepam 2 MG/ML INJ IVP PRN (06:21)
--- NOTE | 2016-08-17 08:16 | DX ---
Portable Chest at 640 hours History: Right-sided pneumothorax with chest tube in place. Comparison: Portable chest August 16, 2016 at 1251 hours. Findings: A moderate right pneumothorax has increased in size since the comparison. A right chest tub e is in stable good position. Right internal jugular central venous catheter tip overlies the right a trium. There is no significant change in diffuse patchy consolidation in the left lung, most prominen t in the left lung base, and patchy right basilar consolidation. Cardiomegaly is stable. The bones ar e stable. Impression: 1. Moderate right pneumothorax, increased since the comparison. 2. Stable multifocal consolidation. Findings discussed with Mehreen the patient's nurse today at 812 hours.
--- NOTE | 2016-08-17 08:23 | HOSPPROG ---
Hospitalist Progress Note Assessment/Plan: #Right pneumothorax -suspected from PE -CXR this morning with persistent PTX -cont chest tubes -surgery following #Acute pulmonary embolism -s/p tPA -heparin gtt #Acute hypoxemic resp failure -due to PTX, PE #Pulmonary hypertension #Diarrhea #Severe protein caloric malnutrition #Normocytic anemia -s/p 1 unit RBC -H/H stable today #Anasarca -holding diuretics #Hypotension -off pressors Objective: Vital Signs Temp Pulse Resp BP Pulse Ox 37.2 C 118 H 34 H 85/50 L 95 08/17/16 06:00 08/17/16 08:00 08/17/16 08:00 08/17/16 08:00 08/17/16 08:00 Microbiology 08/16/16 10:41 Gram Stain - Final Pleural Fluid - Aspirate Laboratory Results 08/16/16 04:53 08/17/16 05:00 08/16/16 08/17/16 08/18/16 05:59 05:59 05:59 Intake Total 50 4520 Output Total 2253 Balance 50 2267 PT 29.5 SEC (12.0-15.0) H 08/16/16 21:58 INR 2.76 (0.83-1.16) H 08/16/16 21:58 ICD10 Worksheet Patient Problems: Problems Problem Status Diagnosed Dehydration Acute Pulmonary embolism Acute Anemia Acute C. difficile diarrhea Acute 04/21/16 Superficial thrombophlebitis Acute
[2016-08-17] MEDS: DIPHENOXYLATE/ATROPINE LOMOTIL 1 TAB PO PRN (08:51)
[2016-08-17] MEDS: FAMOTIDINE 20 MG TAB PO SCH ×2 (08:51→19:55)
[2016-08-17] MEDS: ENOXAPARIN 80 MG/0.8 ML SYR SC SCH ×2 (08:51→20:29)
--- NOTE | 2016-08-17 08:58 | SOAPPROG ---
SOAP Progress Note Assessment/Plan: Assessment: PTx right secondary to infarct following PE Hypoxia (due to PTx) Anticoagulated for PE/DVT Anasarca Min po (severe protein calorie malnutrition) Debility Plan: Second chest tube 24-28 Fr for management of ptx ?broncoplueral fistula if no resolution Not stable fot VATs Supportive care Nutritional suplimentation 08/17/16 08:55 Objective: Vital Signs Temp Pulse Resp BP Pulse Ox 37.2 C 118 H 34 H 85/50 L 95 08/17/16 06:00 08/17/16 08:00 08/17/16 08:00 08/17/16 08:00 08/17/16 08:00 Microbiology 08/16/16 10:41 Gram Stain - Final Pleural Fluid - Aspirate Laboratory Results 08/16/16 04:53 08/17/16 05:00 08/16/16 08/17/16 08/18/16 05:59 05:59 05:59 Intake Total 50 4520 Output Total 2253 Balance 50 2267 PT 29.5 SEC (12.0-15.0) H 08/16/16 21:58 INR 2.76 (0.83-1.16) H 08/16/16 21:58 AA&O RRR CTA left Right decreased air exchange with wheezing CT with intermittent air leak Anasarca ICD10 Worksheet Patient Problems: Problems Problem Status Diagnosed Dehydration Acute Pulmonary embolism Acute Anemia Acute C. difficile diarrhea Acute 04/21/16 Superficial thrombophlebitis Acute
--- NOTE | 2016-08-17 09:05 | PDINTPN ---
Director Systems Progress Note Assessment/Plan: Assessment/Plan: * Pulmonary embolism: Acute on chronic. Status post tPA. -heparin on hold * Resp failure-high Fio2 req and resp rate -follow closely. * LE edema- secondary to volume resuscitation with acute PE and pulmonary hypertension, as well as malnutrition * Large pneumothorax-large CT placed yesterday. Lung down -surgery to place second CT today * Hypotension: Off Levophed. * Pulmonary hypertension: Secondary To #1. * Diarrhea: Evaluation in progress. * Anemia: Hematocrit stable at 23. No evidence of a bleeding source. Diarrhea not bloody. * Malaise, fatigue, failure to thrive: On going now times months, antedating this presentation . Multifactorial. Evaluation in progress. Will need to consider underlying chronic inflammatory bowel disease, occult malignancy, etc. * Malnutrition Subjective: C/O pain from CT. Dyspneic Objective: Vital Signs Temp Pulse Resp BP Pulse Ox 37.2 C 118 H 34 H 85/50 L 95 08/17/16 06:00 08/17/16 08:00 08/17/16 08:00 08/17/16 08:00 08/17/16 08:00 Microbiology 08/16/16 10:41 Gram Stain - Final Pleural Fluid - Aspirate Laboratory Results 08/16/16 04:53 08/17/16 05:00 08/16/16 08/17/16 08/18/16 05:59 05:59 05:59 Intake Total 50 4520 Output Total 2253 Balance 50 2267 PT 29.5 SEC (12.0-15.0) H 08/16/16 21:58 INR 2.76 (0.83-1.16) H 08/16/16 21:58 Physical Exam - Physical Exam General Appearance: alert, moderate distress EENT: PERRL/EOMI, normal ENT inspection Neck: non-tender, full range of motion Respiratory: respiratory distress, crackles (right), No stridor, No wheezing Cardiac/Chest: normal peripheral pulses, regular rate, rhythm Peripheral Pulses: 2+: carotid (R), carotid (L), femoral (R), femoral (L), dorsalis-pedis (R), dorsalis-pedis (L) Abdomen: normal bowel sounds, non-tender, soft Pelvic Exam: deferred Rectal: deferred Skin: normal color, warm/dry Neuro/Psych: alert ICD10 Worksheet Patient Problems: Problems Problem Status Diagnosed Dehydration Acute Pulmonary embolism Acute Anemia Acute C. difficile diarrhea Acute 04/21/16 Superficial thrombophlebitis Acute
[2016-08-17] MEDS ORDERED: POTASSIUM CL 10 MEQ TAB PO ONE (09:49)
[2016-08-17] MEDS: HYDROmorphONE/DILAUDID 1 MG/ML SYR IVP PRN ×3 (10:01→21:17)
[2016-08-17] MEDS ORDERED: LIDOCAINE 1% 30 ML SDV ONE (10:31)
--- NOTE | 2016-08-17 12:30 | DX ---
Portable Chest - August 17, 2016 at 1139 hours History: Post second chest tube placement, pneumothorax.. Comparison: Portable chest same date at 0640 hours. Findings: There has been interval placement of a second chest tube, which appears to be in good posit ion. The right pneumothorax has significantly improved, with a minimal residual right pneumothorax. P atchy diffuse left lung consolidation and right basilar consolidation are stable. Right internal jugu lar central venous catheter tip is at the cavoatrial junction. Moderate cardiomegaly is stable. The b ones are stable. Impression: Improved, now tiny right pneumothorax post second chest tube placement. Otherwise stable chest.
[2016-08-17] MEDS ORDERED: POTASSIUM Cl (KCl) 50 ML IV ONE (13:33)
[2016-08-17] MEDS: MULTIVITAMINS 1 EACH TAB PO SCH (13:33)
[2016-08-17] MEDS ORDERED: ALBUMIN 25% 200 ML IV ONE (14:17)
[2016-08-17] MEDS ORDERED: ALBUMIN 25% 100 ML SOLN IV ONE ×2 (14:23)
[2016-08-17] MEDS ORDERED: ALBUMIN 5% 250 ML BOTTLE IV ONE (14:26)
[2016-08-17] MEDS: POTASSIUM CL 20 MEQ TAB PO SCH (14:41)
[2016-08-17] MEDS ORDERED: ALBUMIN 5% 250 ML IV ONE (15:00)
[2016-08-17] MEDS: LOPERAMIDE HCL 2 MG CAP PO PRN ×2 (15:56→17:16)
[2016-08-17] MEDS ORDERED: NS 500 ML IV ONE ×2 (16:30→18:30)
--- NOTE | 2016-08-17 16:48 | HOSPPROG ---
Hospitalist Progress Note Assessment/Plan: # acute ptx/pleural effusion s/p chest tubes - suspect d/t infarcted lung from PE - continue chest tubes for surgery # acute PE status post tPA - certainly chronic component to the VTE - continue Lovenox # acute hypoxic respiratory failure - worsened again post-ptx # pulm htn # anasarca - blood pressure is pretty low. Continuing to hold Lasix. considers a day or 2 of scheduled albumin # severe protein calorie malnutrition - dietary following, calorie count in progress # elevated INR * probably due to malnutrition * in light of severe pulmonary embolism I am a little bit hesitant to give vitamin K. will continue to watch. # diarrhea - needs colonoscopy when more stable respiratory paez, appreciate Dr. Acosta assistance - did not tolerate Questran, start Lomotil, continue Imodium # anemia - s/p 1U PRBC; suspect GI loss # hemorrhoid/anal fissure? - will get GI eval # FCFT Subjective: feeling somewhat short of breath. Blood pressures have been a little bit low. Required another chest tube this morning Objective: Vital Signs Temp Pulse Resp BP Pulse Ox 36.8 C 96 25 H 74/45 L 94 08/17/16 16:00 08/17/16 16:00 08/17/16 16:00 08/17/16 16:00 08/17/16 16:00 Microbiology 08/16/16 10:41 Gram Stain - Final Pleural Fluid - Aspirate Laboratory Results 08/16/16 04:53 08/17/16 05:00 08/16/16 08/17/16 08/18/16 05:59 05:59 05:59 Intake Total 50 4520 Output Total 2253 Balance 50 2267 PT 29.5 SEC (12.0-15.0) H 08/16/16 21:58 INR 2.76 (0.83-1.16) H 08/16/16 21:58 - Physical Exam Constitutional: no apparent distress, appears nourished, not in pain Eyes: anicteric sclera, EOMI Ears, Nose, Mouth, Throat: moist mucous membranes Cardiovascular: regular rate and rhythym, edema ( 1+ edema) Respiratory: no respiratory distress, no rales or rhonchi, clear to auscultation ( anterior) Gastrointestinal: normoactive bowel sounds, soft, non-tender abdomen, no palpable masses Skin: warm Neurologic: AAOx3 Psychiatric: flat affect ICD10 Worksheet Patient Problems: Problems Problem Status Diagnosed Dehydration Acute Pulmonary embolism Acute Anemia Acute C. difficile diarrhea Acute 04/21/16 Superficial thrombophlebitis Acute
[2016-08-17 18:18] LABS: % IMMATURE GRANULYOCYTES 0.8 % (0.0-1.1); ABSOLUTE IMMATURE GRANULOCYTES 0.08 10^3/uL (0.00-0.10); ADD DIFF? NO; ADD MORPH? NO; ADD SCAN? NO; ATYPICAL LYMPHOCYTE FLAG 60 (0-99); FRAGMENT RBC FLAG 0 (0-99); HEMATOCRIT 22.7 % (38.0-47.0); HEMOGLOBIN 7.5 g/dL (12.6-16.3); LEFT SHIFT FLG 60 (0-99); LIPEMIA HEMOLYSIS FLAG 80 (0-99); MEAN CELL HEMOGLOBIN 31.8 pg (27.9-34.1); MEAN CELL VOLUME 96.2 fL (81.5-99.8); MEAN PLATELET VOLUME 9.7 fL (8.7-11.7); PLATELET CLUMPS FLAG 0 (0-99); PLATELET COUNT 364 10^3/uL (150-400); RED BLOOD CELL COUNT 2.36 10^6/uL (4.18-5.33)
[2016-08-17] MEDS ORDERED: ALBUMIN 25% 100 ML IV ONE (18:28)
[2016-08-17 18:32] LABS: ANION GAP 5 mEq/L (8-16); CALCIUM 6.8 mg/dL (8.5-10.4); CARBON DIOXIDE 24 mEq/l (22-31); CHLORIDE 104 mEq/L (97-110); CREATININE 0.5 mg/dL (0.6-1.0); GLOMERULAR FILTRATION RATE > 60; GLUCOSE 48 mg/dL (70-100); SODIUM 133 mEq/L (134-144)
--- NOTE | 2016-08-17 18:51 | DX ---
Portable AP chest. August 17, 2016at 1839 History: Follow-up lung disease and right chest tube placement. Comparison examination: 7 hours earlier Findings: No significant change in the interval. Tiny right apical pneumothorax is stable, with right chest tube in place. Diffuse bilateral pulmonary infiltrates are unchanged. Cardiac silhouette remai ns moderately prominent. Right-sided jugular central catheter is unchanged. Impression: Stable chest. Small right apical pneumothorax. Diffuse bilateral pulmonary infiltrates.
--- NOTE | 2016-08-17 20:22 | POSTOPPROG ---
Post Op Note Date of Operation: 08/17/16 Surgeon: Lawrence Bianchi Armhole Baster Hand: none Anesthesiologist: none Anesthesia: IV Sedation (0.5 mg dilaudid) Pre-op Diagnosis: pneumothorax - right Post-op Diagnosis: same Indication: as above Procedure: closed thoractomy tube placement right lung Findings: fullexpansion of lung and decreased resipratory effort Inf/Abcess present in the surg proc area at time of surgery?: No EBL: Minimal Complications: none Specimen(s): none
[2016-08-18] MEDS ORDERED: NS 500 ML IV ONE (01:18)
[2016-08-18] MEDS ORDERED: ALBUMIN 25% 200 ML IV ONE (01:19)
[2016-08-18] MEDS: LORazepam 2 MG/ML INJ IVP PRN (02:14)
[2016-08-18 03:44] LABS: MEAN CELL HEMOGLOBIN 31.4 pg (27.9-34.1); MEAN CELL HEMOGLOBIN CONCENTR. 32.5 g/dL (32.4-36.7); MEAN CELL VOLUME 96.6 fL (81.5-99.8); RED BLOOD CELL COUNT 2.07 10^6/uL (4.18-5.33); RED CELL DISTRIBUTION WIDTH 19.2 % (11.5-15.2)
[2016-08-18] MEDS: DIPHENOXYLATE/ATROPINE LOMOTIL 1 TAB PO PRN ×2 (03:44→11:21)
[2016-08-18] MEDS: LOPERAMIDE HCL 2 MG CAP PO PRN ×2 (03:45→11:21)
[2016-08-18 03:57] LABS: INR 2.49 (0.83-1.16); PROTIME(PATIENT) 27.2 SEC (12.0-15.0)
[2016-08-18 04:07] LABS: ANION GAP 7 mEq/L (8-16); CALCIUM 7.1 mg/dL (8.5-10.4); CARBON DIOXIDE 23 mEq/l (22-31); CHLORIDE 106 mEq/L (97-110); CREATININE 0.5 mg/dL (0.6-1.0); GLOMERULAR FILTRATION RATE > 60; GLUCOSE 64 mg/dL (70-100); POTASSIUM 3.6 mEq/L (3.5-5.2); SODIUM 136 mEq/L (134-144)
[2016-08-18 04:23] LABS: HEMOGLOBIN 6.5 g/dL (12.6-16.3)
--- NOTE | 2016-08-18 04:36 | GOP ---
[f rep st] OPERATIVE REPORT DATE OF OPERATION: SURGEON: Lawrence Bianchi MD ANESTHESIA: 0.5 mg of Dilaudid. 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 POSTOPERATIVE DIAGNOSIS: PROCEDURE PERFORMED: Chest tube placement. Closed tube thoracotomy right chest , 4th intercostal space. FINDINGS: At the end of the procedure, ling was re-expanded entirely. Air leak is controlled with 2 chest tubes on the right side. DESCRIPTION OF PROCEDURE: The patient was placed in a semi recumbent position on her bed. The chest was prepped with chlorhexidine and time-out procedure was performed. The area was anesthetized with local anesthetic after being draped sterilely. Incision was made approximately 3 cm above previous chest tube site and deepened with sharp dissection. The periosteum was anesthetized and bluntly entered. A 24-Romanian chest tube was positioned for apical positioning of the chest tube, and immediate air tillman is noted. This is hooked up to the same atrium using a Y-connector. The patient tolerated it well. The incision was closed using 3-0 silk suture and the tube was secured at 8 cm. The patient tolerated it well. Dressing was applied. Chest x-ray was ordered. The patient is a 51-year-old, who has been hospitalized for several months, with multiple problems. Latest problem includes pulmonary embolus with lung infarction causing pneumothorax. Recent chest tube placement has resulted in persistent air leak, and the lung has again dropped. COMPLICATIONS: There were no complications. /[id number]/MODL MTDD
[2016-08-18] MEDS: POTASSIUM Cl (KCl) 50 ML IV SCH ×6 (08:01→23:32)
[2016-08-18] MEDS: NS 1,000 ML IV SCH (08:04)
[2016-08-18] MEDS: FAMOTIDINE 20 MG TAB PO SCH (08:05)
[2016-08-18] MEDS: POTASSIUM CL 20 MEQ TAB PO SCH (08:06)
[2016-08-18] MEDS: MULTIVITAMINS 1 EACH TAB PO SCH (08:06)
--- NOTE | 2016-08-18 08:38 | DX ---
Portable AP chest. August 18, 2016At 6:18 AM Comparison examination: August 17, 2016. History: Followup lung disease. ICU patient Findings: Diffuse airspace consolidation and patchy infiltrates are again noted throughout both lungs , unchanged. 2 right thoracostomy tubes are present, without pneumothorax. Subcutaneous emphysema in the right judi st wall is decreasing. Heart size is normal. Impression: Stable chest. 2 right chest tubes without pneumothorax. Diffuse bilateral lung disease.
--- NOTE | 2016-08-18 09:49 | PDINTPN ---
[employer] Worker Progress Note Assessment/Plan: Assessment/Plan: * Pulmonary embolism: Acute on chronic. Status post tPA. * Resp failure-high Fio2 req and resp rate -follow closely. * LE edema- secondary to volume resuscitation with acute PE and pulmonary hypertension, as well as malnutrition * Large pneumothorax-second CT placed yesterday. Lung up on CXR * Hypotension: Off Levophed. * Pulmonary hypertension: Secondary To #1. * Diarrhea: Evaluation in progress. * Anemia: transfuse today * Malaise, fatigue, failure to thrive: On going now times months, antedating this presentation . Multifactorial. Evaluation in progress. Will need to consider underlying chronic inflammatory bowel disease, occult malignancy, etc. * Malnutrition Subjective: Feels a little better Objective: Vital Signs Temp Pulse Resp BP Pulse Ox 36.9 C 105 H 25 H 97/65 L 100 08/18/16 00:00 08/18/16 06:00 08/18/16 06:00 08/18/16 06:00 08/18/16 06:40 Microbiology 08/16/16 10:41 Gram Stain - Final Pleural Fluid - Aspirate Laboratory Results 08/18/16 03:35 08/18/16 03:35 08/17/16 08/18/16 08/19/16 05:59 05:59 05:59 Intake Total 4520 4095 240 Output Total 2253 650 Balance 2267 3445 240 PT 27.2 SEC (12.0-15.0) H 08/18/16 03:35 INR 2.49 (0.83-1.16) H 08/18/16 03:35 CXR-reviewed by myself. Improved. CT's okay. No PTX Physical Exam - Physical Exam General Appearance: alert, mild distress EENT: PERRL/EOMI, normal ENT inspection Neck: non-tender, full range of motion, supple, normal inspection Respiratory: respiratory distress (mild), crackles (bases), No stridor, No wheezing Cardiac/Chest: normal peripheral pulses, regular rate, rhythm, systolic murmur Peripheral Pulses: 2+: carotid (R), carotid (L), femoral (R), femoral (L), dorsalis-pedis (R), dorsalis-pedis (L) Abdomen: non-tender, soft, No normal bowel sounds (hyperactive) Pelvic Exam: deferred Rectal: deferred Skin: normal color, warm/dry Extremities: normal range of motion, non-tender, normal inspection, normal capillary refill Neuro/Psych: alert ICD10 Worksheet Patient Problems: Problems Problem Status Diagnosed Dehydration Acute Pulmonary embolism Acute Anemia Acute C. difficile diarrhea Acute 04/21/16 Superficial thrombophlebitis Acute
[2016-08-18] MEDS: PHYTONADIONE 2.5 MG/2.5 ML ORAL UDL PO SCH (10:02)
[2016-08-18] MEDS: ENOXAPARIN 80 MG/0.8 ML SYR SC SCH ×2 (10:03→21:20)
[2016-08-18] MEDS ORDERED: D10W 1,000 ML IV PRN (11:33)
[2016-08-18 12:00] LABS: % IMMATURE GRANULYOCYTES 0.5 % (0.0-1.1); ABSOLUTE IMMATURE GRANULOCYTES 0.04 10^3/uL (0.00-0.10); ADD DIFF? NO; ADD MORPH? NO; ADD SCAN? YES; ATYPICAL LYMPHOCYTE FLAG 80 (0-99); FRAGMENT RBC FLAG 0 (0-99); HEMATOCRIT 21.3 % (38.0-47.0); HEMOGLOBIN 7.1 g/dL (12.6-16.3); LIPEMIA HEMOLYSIS FLAG 80 (0-99); MEAN CELL HEMOGLOBIN CONCENTR. 33.3 g/dL (32.4-36.7); MEAN CELL VOLUME 95.9 fL (81.5-99.8); MEAN PLATELET VOLUME 9.3 fL (8.7-11.7); PLATELET CLUMPS FLAG 0 (0-99); PLATELET COUNT 321 10^3/uL (150-400); RED BLOOD CELL COUNT 2.22 10^6/uL (4.18-5.33); RED CELL DISTRIBUTION WIDTH 18.9 % (11.5-15.2)
[2016-08-18] MEDS ORDERED: FUROSEMIDE 20 MG/2 ML VIAL IVP ONE (12:00)
[2016-08-18 12:01] LABS: LEFT SHIFT FLG 140 (0-99)
[2016-08-18 12:14] LABS: INR 2.29 (0.83-1.16); PROTIME(PATIENT) 25.4 SEC (12.0-15.0)
[2016-08-18 12:15] LABS: APTT 51.6 SEC (23.0-38.0)
[2016-08-18 12:20] LABS: ALANINE AMINOTRANSFERASE 34 IU/L (9-52); ALBUMIN 1.9 g/dL (3.5-5.0); ALKALINE PHOSPHATASE 69 IU/L (38-126); ANION GAP 9 mEq/L (8-16); ASPARTATE AMINOTRANSFERASE 13 IU/L (14-46); BILIRUBIN,TOTAL 4.2 mg/dL (0.1-1.4); CARBON DIOXIDE 21 mEq/l (22-31); CHLORIDE 107 mEq/L (97-110); CREATININE 0.5 mg/dL (0.6-1.0); GLOMERULAR FILTRATION RATE > 60; GLUCOSE 81 mg/dL (70-100); MAGNESIUM 1.7 mg/dL (1.6-2.3); POTASSIUM 3.7 mEq/L (3.5-5.2); SODIUM 137 mEq/L (134-144); TOTAL PROTEIN 4.2 g/dL (6.3-8.2); TRIGLYCERIDE 180 mg/dL (35-135)
[2016-08-18 12:29] LABS: % SATURATION 30 % (20-55); TOTAL IRON BINDING CAPACITY 94 ug/dL (260-490)
[2016-08-18 12:39] LABS: SCAN POSITIVE
[2016-08-18 12:52] LABS: HYPOCHROMIA 1+; PLATELET ESTIMATE ADEQUATE (ADEQ); POLYCHROMASIA 1+
[2016-08-18 12:55] LABS: FERRITIN - BCH 45.6 ng/mL (6.2-264.0)
[2016-08-18 13:01] LABS: BILIRUBIN-CONJUGATED 2.9 mg/dL (0.0-0.5); BILIRUBIN-UNCONJUGATED 1.3 mg/dL (0.0-1.1)
[2016-08-18] MEDS ORDERED: POTASSIUM Cl (KCl) 50 ML IV ONE (13:10)
--- NOTE | 2016-08-18 13:56 | SOAPPROG ---
SOAP Progress Note Assessment/Plan: Assessment: FU RT HEMO-PNEUMOTHORAX/ CO SHORTNESS OF BREATH/ AFEBRILE NO AIR LEAK/ MODERATE DRAINAGE/ CXR WELL EXPANDED Plan: CONTINUE SUCTION/ MAY BE HEADED TO VENT SOON 08/18/16 13:53 Objective: Vital Signs Temp Pulse Resp BP Pulse Ox 36.9 C 105 H 37 H 97/65 L 93 08/18/16 00:00 08/18/16 06:00 08/18/16 11:20 08/18/16 06:00 08/18/16 11:20 Microbiology 08/16/16 10:41 Gram Stain - Final Pleural Fluid - Aspirate Laboratory Results 08/18/16 11:50 08/18/16 11:50 08/17/16 08/18/16 08/19/16 05:59 05:59 05:59 Intake Total 4520 4095 240 Output Total 2253 651 Balance 2267 3444 240 PT 25.4 SEC (12.0-15.0) H 08/18/16 11:50 INR 2.29 (0.83-1.16) H 08/18/16 11:50 ICD10 Worksheet Patient Problems: Problems Problem Status Diagnosed Dehydration Acute Pulmonary embolism Acute Anemia Acute C. difficile diarrhea Acute 04/21/16 Superficial thrombophlebitis Acute
--- NOTE | 2016-08-18 15:38 | HOSPPROG ---
Hospitalist Progress Note Assessment/Plan: # acute ptx/pleural effusion s/p chest tubes - suspect d/t infarcted lung from PE - continue chest tubes for surgery # acute PE status post tPA - certainly chronic component to the VTE - continue Lovenox # acute hypoxic respiratory failure - worsened again post-ptx * did receive a lot of fluid yesterday. * will give a few doses of Lasix with albumin # pulm htn # anasarca * will give a little bit of Lasix with blood today. * Adding albumin for a day # severe protein calorie malnutrition - dietary following, calorie count in progress\ * will start TPN * pre albumin is very low # elevated INR * probably due to malnutrition * will give small doses of vitamin K to try to reverse. # diarrhea - needs colonoscopy when more stable respiratory paez - did not tolerate Questran * will add tincture of opium * discuss with Gastroenterology. They will come back and see. I have ordered a calprotectan and pancreatic elastase to help evaluate * she does have a family history of Crohn's disease. Would want to consider empiric steroids if stools testing is suggestive of inflammatory bowel disease # anemia * Will give 1 unit of blood today. * Check iron studies # hemorrhoid/anal fissure? - will get GI eval # FCFT Subjective: continued significant diarrhea Objective: Vital Signs Temp Pulse Resp BP Pulse Ox 36.9 C 105 H 37 H 97/65 L 93 08/18/16 00:00 08/18/16 06:00 08/18/16 11:20 08/18/16 06:00 08/18/16 11:20 Microbiology 08/16/16 10:41 Gram Stain - Final Pleural Fluid - Aspirate Laboratory Results 08/18/16 11:50 08/18/16 11:50 08/17/16 08/18/16 08/19/16 05:59 05:59 05:59 Intake Total 4520 4095 240 Output Total 2253 651 Balance 2267 3444 240 PT 25.4 SEC (12.0-15.0) H 08/18/16 11:50 INR 2.29 (0.83-1.16) H 08/18/16 11:50 - Physical Exam Constitutional: no apparent distress, appears nourished, not in pain Eyes: anicteric sclera, EOMI Ears, Nose, Mouth, Throat: moist mucous membranes Cardiovascular: regular rate and rhythym, no murmur, rub, or gallop, edema ( 2+) Respiratory: no respiratory distress, no rales or rhonchi, clear to auscultation Gastrointestinal: normoactive bowel sounds, soft, non-tender abdomen, no palpable masses Skin: warm Neurologic: AAOx3 Psychiatric: interacting appropriately, not anxious, not encephalopathic, thought process linear ICD10 Worksheet Patient Problems: Problems Problem Status Diagnosed Dehydration Acute Pulmonary embolism Acute Anemia Acute C. difficile diarrhea Acute 04/21/16 Superficial thrombophlebitis Acute
[2016-08-18] MEDS: HYDROmorphONE/DILAUDID 1 MG/ML SYR IVP PRN (16:26)
--- NOTE | 2016-08-18 16:29 | WOCRNPDOC ---
LINDA Advanced Assessment Note - Skin Integrity Problem, Advanced Assess Coccyx Laceration Dressing Type: Allevyn Life Dressing Description: Clean/Dry, Intact Integumentary Issue Intervention: Visualized Under Dressing Melissa Wound Swelling: None Wound Bed Color: [place] Wound Edges: Epithelizing Site Measurement - Head-to-Toe Length X Width X Depth (cm): 0.3 hi x 0.2 Skin Integrity Problem Comment: Healing tear site, based on prior assessement by MIKE Landin Bilateral Coccyx Unknown Dressing Type: Allevyn Life Dressing Description: Clean/Dry, Intact Integumentary Issue Intervention: Visualized Under Dressing Melissa Wound Tissue: Intact Melissa Wound Swelling: None Wound Bed Color: Brown Wound Bed Constitution: Adhered Slough (100%) Wound Edges: Attached Site Odor: None Site Measurement - Head-to-Toe Length X Width X Depth (cm): 0.5 hi x slough Skin Integrity Problem Comment: Two symmetrical sites adjacent to coccyx bilaterally, possibly remainders of healing process of coccyx tear cited previously. Provided BANG Sinclair with Medihoney gel, with instructions for application.
[2016-08-18] MEDS: ALBUMIN 25% 100 ML IV SCH ×2 (16:30→18:14)
[2016-08-18] MEDS: OPIUM TINCTURE 6 MG/0.6 ML UDSYR PO SCH ×3 (16:31→21:21)
[2016-08-18] MEDS ORDERED: POTASSIUM Cl (KCl) 10 MEQ/50 ML BAG IV ONE (16:49)
[2016-08-18 18:34] LABS: POTASSIUM 3.4 mEq/L (3.5-5.2)
[2016-08-18] MEDS: TPN W/ FAMOTIDINE 1 EA BAG IV SCH (21:31)
[2016-08-19] MEDS: ALBUMIN 25% 100 ML IV SCH ×4 (00:07→17:55)
[2016-08-19 00:20] LABS: HEMATOCRIT 24.2 % (38.0-47.0); HEMOGLOBIN 7.9 g/dL (12.6-16.3)
[2016-08-19 04:58] LABS: % IMMATURE GRANULYOCYTES 1.2 % (0.0-1.1); ADD DIFF? NO; ADD MORPH? NO; ADD SCAN? YES; FRAGMENT RBC FLAG 0 (0-99); HEMOGLOBIN 7.7 g/dL (12.6-16.3); LIPEMIA HEMOLYSIS FLAG 80 (0-99); MEAN CELL HEMOGLOBIN 30.9 pg (27.9-34.1); MEAN CELL HEMOGLOBIN CONCENTR. 32.1 g/dL (32.4-36.7); MEAN CELL VOLUME 96.4 fL (81.5-99.8); MEAN PLATELET VOLUME 9.7 fL (8.7-11.7); PLATELET CLUMPS FLAG 10 (0-99); PLATELET COUNT 266 10^3/uL (150-400); RED BLOOD CELL COUNT 2.49 10^6/uL (4.18-5.33); RED CELL DISTRIBUTION WIDTH 18.6 % (11.5-15.2)
[2016-08-19 05:08] LABS: INR 2.23 (0.83-1.16); PROTIME(PATIENT) 24.9 SEC (12.0-15.0)
[2016-08-19 05:09] LABS: APTT 50.1 SEC (23.0-38.0); ATYPICAL LYMPHOCYTE FLAG 120 (0-99); LEFT SHIFT FLG 300 (0-99)
[2016-08-19 05:28] LABS: ALANINE AMINOTRANSFERASE 28 IU/L (9-52); ALBUMIN 2.1 g/dL (3.5-5.0); ALKALINE PHOSPHATASE 56 IU/L (38-126); ANION GAP 9 mEq/L (8-16); ASPARTATE AMINOTRANSFERASE 15 IU/L (14-46); BILIRUBIN-CONJUGATED 3.8 mg/dL (0.0-0.5); BILIRUBIN-UNCONJUGATED 1.2 mg/dL (0.0-1.1); CALCIUM 7.3 mg/dL (8.5-10.4); CARBON DIOXIDE 22 mEq/l (22-31); CHLORIDE 109 mEq/L (97-110); CREATININE 0.5 mg/dL (0.6-1.0); GLOMERULAR FILTRATION RATE > 60; GLUCOSE 124 mg/dL (70-100); MAGNESIUM 1.7 mg/dL (1.6-2.3); POTASSIUM 3.6 mEq/L (3.5-5.2); SODIUM 140 mEq/L (134-144); TOTAL PROTEIN 4.5 g/dL (6.3-8.2); TRIGLYCERIDE 139 mg/dL (35-135)
[2016-08-19 05:45] LABS: SCAN POSITIVE
[2016-08-19] MEDS: NS 1,000 ML IV SCH ×2 (05:49→09:56)
[2016-08-19] MEDS: OPIUM TINCTURE 6 MG/0.6 ML UDSYR PO SCH ×4 (05:49→22:14)
[2016-08-19 05:51] LABS: PLATELET ESTIMATE ADEQUATE (ADEQ); POLYCHROMASIA 1+
[2016-08-19 05:52] LABS: TOXIC GRANULATION PRESENT
[2016-08-19] MEDS ORDERED: POTASSIUM Cl (KCl) 50 ML IV SCH (06:29)
[2016-08-19] MEDS ORDERED: K PHOS 20 MMOL in D5W 250 ML IV ONE (08:00)
[2016-08-19] MEDS ORDERED: POTASSIUM Cl (KCl) 50 ML IV ONE (08:30)
[2016-08-19] MEDS ORDERED: POTASSIUM CL 10 MEQ TAB PO ONE ×2 (08:30→20:16)
--- NOTE | 2016-08-19 08:34 | DX ---
Portable Chest, Single View 6:03 Indication: Follow up right chest tube. Comparison: Portable chest dated August 17, 2016 Findings: The two large-caliber right chest tubes and right IJ central venous line are unchanged in p osition. No discernible right apical pneumothorax. Bilateral airspace consolidation, worse in the lef t apex and right base, and small bilateral subpulmonic effusions are unchanged. Heart size is within normal limits. Impression: 1. Two right chest tubes in good position. No discernible pneumothorax. 2. Small bilateral pleural effusions and bilateral airspace consolidation unchanged.
[2016-08-19] MEDS: ENOXAPARIN 80 MG/0.8 ML SYR SC SCH ×2 (08:38→22:01)
[2016-08-19] MEDS: POTASSIUM CL 20 MEQ TAB PO SCH (08:38)
[2016-08-19] MEDS: DIPHENOXYLATE/ATROPINE LOMOTIL 1 TAB PO PRN (08:41)
--- NOTE | 2016-08-19 09:21 | PDINTPN ---
Barrel Plater Progress Note Assessment/Plan: Assessment/Plan: * Pulmonary embolism: Acute on chronic. Status post tPA. * Resp failure-improved Fio2 req and resp rate -follow closely. * LE edema- secondary to volume resuscitation with acute PE and pulmonary hypertension, as well as malnutrition * Large pneumothorax-second CT placed yesterday. Lung up on CXR * Hypotension: better * Pulmonary hypertension: Secondary To #1. * Diarrhea: Evaluation in progress. * Anemia: stable * Malaise, fatigue, failure to thrive: On going now times months, antedating this presentation . Multifactorial. Evaluation in progress. Will need to consider underlying chronic inflammatory bowel disease, occult malignancy, etc. * Malnutrition-better appetite today. 08/19/16 09:19 Subjective: Looks and feels better. Up in chair. Some hallucinations Objective: Vital Signs Temp Pulse Resp BP Pulse Ox 36.7 C 105 H 20 92/56 L 99 08/18/16 20:00 08/19/16 08:00 08/19/16 08:00 08/19/16 08:00 08/19/16 08:00 Microbiology 08/19/16 00:56 Gastrointestinal Tract Panel (PCR) - Final Stool No Organisms Detected 08/16/16 10:41 Gram Stain - Final Pleural Fluid - Aspirate Laboratory Results 08/19/16 04:35 08/19/16 04:35 08/18/16 08/19/16 08/20/16 05:59 05:59 05:59 Intake Total 4095 4055 Output Total 651 2890 Balance 3444 1165 PT 24.9 SEC (12.0-15.0) H 08/19/16 04:35 INR 2.23 (0.83-1.16) H 08/19/16 04:35 Physical Exam - Physical Exam General Appearance: alert, mild distress EENT: PERRL/EOMI, normal ENT inspection, pharynx normal Neck: non-tender, full range of motion, supple, normal inspection Respiratory: crackles (bibasilar), No respiratory distress, No wheezing Cardiac/Chest: normal peripheral pulses, regular rate, rhythm Peripheral Pulses: 2+: carotid (R), carotid (L), femoral (R), femoral (L), dorsalis-pedis (R), dorsalis-pedis (L) Abdomen: non-tender, soft, No normal bowel sounds Pelvic Exam: deferred Rectal: deferred Skin: normal color, warm/dry Extremities: normal range of motion, non-tender, normal inspection, normal capillary refill Neuro/Psych: alert ICD10 Worksheet Patient Problems: Problems Problem Status Diagnosed Dehydration Acute Pulmonary embolism Acute Anemia Acute C. difficile diarrhea Acute 04/21/16 Superficial thrombophlebitis Acute
[2016-08-19] MEDS ORDERED: D50W 25 GM/50 ML SYR IVP PRN (11:00)
[2016-08-19] MEDS ORDERED: MAGNESIUM SULF 2 GM/WATER 50 ML IV ONE (11:00)
[2016-08-19] MEDS ORDERED: PARAMETERS MISC PRN (11:00)
[2016-08-19] MEDS: PHYTONADIONE 2.5 MG/2.5 ML ORAL UDL PO SCH (11:23)
--- NOTE | 2016-08-19 11:56 | SOAPPROG ---
SOAP Progress Note Assessment/Plan: Assessment: Diarrhea chronic and clinically significant. W/u with stool cult, O+P, c.diffx2 , celiac negative. Pt clinically too ill for colon /egd. Pt dose have Stool WBC and fam h/o IBD so given no evidence of infectious diarrhea and severity of diarrhea reasonable to consider empiric trial of Solumol. Plan: Trial of steroids Await stool calprotectin EGD and colon once pulmonary status improved 08/19/16 11:51 Subjective: CC diarrhea Pt states frequent stools no significant abd pain occ blood with stools Objective: Vital Signs Temp Pulse Resp BP Pulse Ox 36.7 C 105 H 20 92/56 L 99 08/18/16 20:00 08/19/16 08:00 08/19/16 08:00 08/19/16 08:00 08/19/16 08:00 Microbiology 08/19/16 00:56 Gastrointestinal Tract Panel (PCR) - Final Stool No Organisms Detected 08/16/16 10:41 Gram Stain - Final Pleural Fluid - Aspirate Laboratory Results 08/19/16 04:35 08/19/16 04:35 08/18/16 08/19/16 08/20/16 05:59 05:59 05:59 Intake Total 4095 4055 Output Total 651 2890 Balance 3444 1165 PT 24.9 SEC (12.0-15.0) H 08/19/16 04:35 INR 2.23 (0.83-1.16) H 08/19/16 04:35 Physical Exam - Physical Exam General Appearance: alert Respiratory: lungs clear, decreased breath sounds Cardiac/Chest: regular rate, rhythm, No diastolic murmur Abdomen: normal bowel sounds, non-tender, soft ICD10 Worksheet Patient Problems: Problems Problem Status Diagnosed Dehydration Acute Pulmonary embolism Acute Anemia Acute C. difficile diarrhea Acute 04/21/16 Superficial thrombophlebitis Acute
[2016-08-19] MEDS ORDERED: FUROSEMIDE 20 MG/2 ML VIAL IVP SCH (12:00)
[2016-08-19] MEDS: FUROSEMIDE 20 MG/2 ML VIAL IVP SCH ×2 (12:15→17:55)
[2016-08-19] MEDS: INSULIN REGULAR, HUMAN 100 UNIT/1 ML VIAL STANDARD SC SCH ×3 (12:23→22:06)
[2016-08-19 13:13] LABS: CELIAC DISEASE INTERPRETATION See Comments (()); CELIAC GENE PAIRS PRESENT? Yes (()); IMMUNOGLOBULIN A CELIAC 248 mg/dL (61 - 356)
--- NOTE | 2016-08-19 13:57 | HOSPPROG ---
Hospitalist Progress Note Assessment/Plan: # acute ptx/pleural effusion s/p chest tubes - suspect d/t infarcted lung from PE - continue chest tubes for surgery # acute PE status post tPA - certainly chronic component to the VTE - continue Lovenox # acute hypoxic respiratory failure - worsened again post-ptx * did receive a lot of fluid yesterday. * will give a few doses of Lasix with albumin # pulm htn # anasarca * will give a little bit of Lasix with blood today. * Adding albumin for a day # severe protein calorie malnutrition - dietary following, calorie count in progress\ * will start TPN * pre albumin is very low # elevated INR * probably due to malnutrition * will give small doses of vitamin K to try to reverse. # diarrhea - needs colonoscopy when more stable respiratory paez - did not tolerate Questran * will add tincture of opium * discuss with Gastroenterology. They will come back and see. I have ordered a calprotectan and pancreatic elastase to help evaluate * she does have a family history of Crohn's disease. Would want to consider empiric steroids if stools testing is suggestive of inflammatory bowel disease # anemia * Will give 1 unit of blood today. * Check iron studies # hemorrhoid/anal fissure? - will get GI eval # FCFT Objective: Vital Signs Temp Pulse Resp BP Pulse Ox 36.7 C 110 H 28 H 94/58 L 97 08/18/16 20:00 08/19/16 12:00 08/19/16 12:00 08/19/16 12:00 08/19/16 12:00 Microbiology 08/19/16 00:56 Gastrointestinal Tract Panel (PCR) - Final Stool No Organisms Detected 08/16/16 10:41 Gram Stain - Final Pleural Fluid - Aspirate Laboratory Results 08/19/16 04:35 08/19/16 04:35 08/18/16 08/19/16 08/20/16 05:59 05:59 05:59 Intake Total 4095 4055 Output Total 651 2890 Balance 3444 1165 PT 24.9 SEC (12.0-15.0) H 08/19/16 04:35 INR 2.23 (0.83-1.16) H 08/19/16 04:35 ICD10 Worksheet Patient Problems: Problems Problem Status Diagnosed Dehydration Acute Pulmonary embolism Acute Anemia Acute C. difficile diarrhea Acute 04/21/16 Superficial thrombophlebitis Acute
--- NOTE | 2016-08-19 14:20 | HOSPPROG ---
Hospitalist Progress Note Assessment/Plan: 51-year-old female who has had problems with diarrhea and weight loss for 6 months presenting with severe pulmonary embolism status post tPA and then developed hydro pneumothorax most likely due to pulmonary infarction # acute ptx/pleural effusion s/p chest tubes - suspect d/t infarcted lung from PE - continue chest tubes for surgery * surgery is concerned that her nutritional status will inhibit healing of her air leak # acute PE status post tPA - certainly chronic component to the VTE - continue Lovenox # acute hypoxic respiratory failure - worsened again post-ptx * will give a few doses of Lasix with albumin # pulm htn # anasarca * starting albumin and Lasix # severe protein calorie malnutrition - dietary following, calorie count in progress * pre albumin is very low * even though she is able to take p.o. she has had profound malnutrition and weight loss even when she was taking p.o. presumably due to her severe diarrhea. For this reason TPN was started. Could consider feeding through the got especially if empiric steroids help. See below # elevated INR * probably due to malnutrition * will give small doses of vitamin K to try to reverse. do not want this to complicate our current anticoagulation strategy # chronic diarrhea * I reviewed her CT scan from February which showed severe colitis. She has a family history of Crohn's disease in her brother. she has inflammatory markers on stool sample. I believe she has a fairly good likelihood of inflammatory bowel disease as the cause. I discussed with Gastroenterology in as we cannot get colonoscopy at this time we are wondering if a trial of empiric steroids could be helpful to reverse with diarrhea if this indeed is a case. * stool calprotectant has been ordered and can help with diagnosis * will add tincture of opium # anemia * status post transfusion yesterday * Check iron studies # hemorrhoid/anal fissure # FCFT 35 minutes of critical care were spent Subjective: has a little bit more energy. Still with a lot of diarrhea. Respiratory status seems to be improving Objective: Vital Signs Temp Pulse Resp BP Pulse Ox 36.7 C 110 H 28 H 94/58 L 97 08/18/16 20:00 08/19/16 12:00 08/19/16 12:00 08/19/16 12:00 08/19/16 12:00 Microbiology 08/19/16 00:56 Gastrointestinal Tract Panel (PCR) - Final Stool No Organisms Detected 08/16/16 10:41 Gram Stain - Final Pleural Fluid - Aspirate Laboratory Results 08/19/16 04:35 08/19/16 04:35 08/18/16 08/19/16 08/20/16 05:59 05:59 05:59 Intake Total 4095 4055 Output Total 651 2890 Balance 3444 1165 PT 24.9 SEC (12.0-15.0) H 08/19/16 04:35 INR 2.23 (0.83-1.16) H 08/19/16 04:35 discussed with pulmonology and Gastroenterology and surgery - Physical Exam Constitutional: no apparent distress, appears nourished, not in pain Eyes: anicteric sclera, EOMI Ears, Nose, Mouth, Throat: moist mucous membranes Cardiovascular: regular rate and rhythym, edema ( anasarca) Respiratory: no respiratory distress, no rales or rhonchi Gastrointestinal: normoactive bowel sounds, soft, non-tender abdomen, no palpable masses Skin: warm Neurologic: AAOx3 Psychiatric: interacting appropriately, not anxious, not encephalopathic, thought process linear ICD10 Worksheet Patient Problems: Problems Problem Status Diagnosed Dehydration Acute Pulmonary embolism Acute Anemia Acute C. difficile diarrhea Acute 04/21/16 Superficial thrombophlebitis Acute
--- NOTE | 2016-08-19 14:34 | SOAPPROG ---
SOAP Progress Note Assessment/Plan: Assessment: PTx right secondary to infarct following PE Hypoxia (due to PTx) Anticoagulated for PE/DVT Anasarca Min po (severe protein calorie malnutrition) Debility RRR CTA left 3+ pitting edema upper and lower extremities Plan: Continue 2 right chest tubes 24-28 Fr for management of ptx ?broncoplueral fistula if no resolution Not stable fot VATs Supportive care Nutritional suplimentation 08/17/16 08:55 08/19/16 14:33 Objective: Vital Signs Temp Pulse Resp BP Pulse Ox 36.7 C 110 H 28 H 94/58 L 97 08/18/16 20:00 08/19/16 12:00 08/19/16 12:00 08/19/16 12:00 08/19/16 12:00 Microbiology 08/19/16 00:56 Gastrointestinal Tract Panel (PCR) - Final Stool No Organisms Detected 08/16/16 10:41 Gram Stain - Final Pleural Fluid - Aspirate Laboratory Results 08/19/16 04:35 08/19/16 04:35 08/18/16 08/19/16 08/20/16 05:59 05:59 05:59 Intake Total 4095 4055 Output Total 651 2890 Balance 3444 1165 PT 24.9 SEC (12.0-15.0) H 08/19/16 04:35 INR 2.23 (0.83-1.16) H 08/19/16 04:35 ICD10 Worksheet Patient Problems: Problems Problem Status Diagnosed Dehydration Acute Pulmonary embolism Acute Anemia Acute C. difficile diarrhea Acute 04/21/16 Superficial thrombophlebitis Acute
[2016-08-19] MEDS: methylPREDNISolone SOD SUCC 40 MG/ML VIAL IVP SCH ×2 (15:12→22:01)
[2016-08-19 20:03] LABS: POTASSIUM 3.4 mEq/L (3.5-5.2)
[2016-08-19] MEDS: TPN W/ FAMOTIDINE 1 EA BAG IV SCH (22:00)
[2016-08-20] MEDS: ALBUMIN 25% 100 ML IV SCH ×4 (00:40→17:49)
[2016-08-20] MEDS: FUROSEMIDE 20 MG/2 ML VIAL IVP SCH ×4 (00:50→19:10)
[2016-08-20] MEDS: OPIUM TINCTURE 6 MG/0.6 ML UDSYR PO SCH ×5 (01:36→20:28)
[2016-08-20] MEDS: methylPREDNISolone SOD SUCC 40 MG/ML VIAL IVP SCH ×2 (06:01→14:53)
[2016-08-20 06:04] LABS: ABSOLUTE IMMATURE GRANULOCYTES 0.06 10^3/uL (0.00-0.10); ADD DIFF? NO; ADD MORPH? NO; ADD SCAN? YES; FRAGMENT RBC FLAG 0 (0-99); HEMATOCRIT 24.8 % (38.0-47.0); LIPEMIA HEMOLYSIS FLAG 80 (0-99); MEAN CELL HEMOGLOBIN 31.4 pg (27.9-34.1); MEAN CELL HEMOGLOBIN CONCENTR. 32.3 g/dL (32.4-36.7); MEAN CELL VOLUME 97.3 fL (81.5-99.8); PLATELET CLUMPS FLAG 0 (0-99); PLATELET COUNT 230 10^3/uL (150-400); RED BLOOD CELL COUNT 2.55 10^6/uL (4.18-5.33); RED CELL DISTRIBUTION WIDTH 18.6 % (11.5-15.2)
[2016-08-20 06:19] LABS: ALANINE AMINOTRANSFERASE 27 IU/L (9-52); ALBUMIN 2.4 g/dL (3.5-5.0); ALKALINE PHOSPHATASE 39 IU/L (38-126); ANION GAP 10 mEq/L (8-16); ASPARTATE AMINOTRANSFERASE 14 IU/L (14-46); BILIRUBIN,TOTAL 4.4 mg/dL (0.1-1.4); BILIRUBIN-UNCONJUGATED 1.4 mg/dL (0.0-1.1); CALCIUM 7.8 mg/dL (8.5-10.4); CARBON DIOXIDE 24 mEq/l (22-31); CHLORIDE 106 mEq/L (97-110); CREATININE 0.4 mg/dL (0.6-1.0); GLOMERULAR FILTRATION RATE > 60; GLUCOSE 151 mg/dL (70-100); MAGNESIUM 1.9 mg/dL (1.6-2.3); SODIUM 140 mEq/L (134-144); TOTAL PROTEIN 4.7 g/dL (6.3-8.2)
[2016-08-20 06:21] LABS: INR 1.71 (0.83-1.16); PROTIME(PATIENT) 20.1 SEC (12.0-15.0)
[2016-08-20 06:22] LABS: APTT 45.8 SEC (23.0-38.0)
[2016-08-20 06:24] LABS: ATYPICAL LYMPHOCYTE FLAG 130 (0-99); LEFT SHIFT FLG 300 (0-99)
[2016-08-20 07:29] LABS: SCAN POSITIVE
[2016-08-20 07:41] LABS: PLATELET ESTIMATE ADEQUATE (ADEQ); POLYCHROMASIA 1+; TOXIC GRANULATION PRESENT
[2016-08-20] MEDS: INSULIN REGULAR, HUMAN 100 UNIT/1 ML VIAL STANDARD SC SCH ×4 (08:57→21:35)
--- NOTE | 2016-08-20 08:58 | US ---
Ultrasound of the Abdomen, Limited History: Abnormal LFTs. Findings: Pancreas: The body and tail of the pancreas were secured by overlying bowel gas. The head of the panc reas appears to be normal.. Liver: Diffusely heterogeneous echotexture suggestive of hepatic steatosis. No focal liver lesion is identified. The liver is mild to moderately enlarged measuring about 23 cm in length. Gallbladder: The gallbladder is not well distended. The gallbladder wall is borderline thickened. Num erous gallstones are present layering within the gallbladder. The patient was not significantly tende r over the gallbladder fossa. Common bile duct is normal measuring 3 mm in diameter. Right Kidney: Normal without hydronephrosis. Aorta: Visualized upper abdominal aorta demonstrates no aneurysm. The mid and distal aorta were obscu red by overlying bowel gas. Intrahepatic IVC: Normal Impression: 1. Cholelithiasis with borderline gallbladder wall thickening. Rule out chronic cholecystitis. 2. Portions of the pancreas and abdominal aorta were obscured by overlying bowel gas. 3. Hepatic steatosis with mild to moderate hepatomegaly.
--- NOTE | 2016-08-20 09:12 | DX ---
Portable Chest , 6:00 History: Follow-up infiltrates, extensive pulmonary embolic disease (August 07) Comparison: August 19 Findings: Persistent bilateral infiltrates with perhaps early improvement in the left upper lobe. No change in dense left lower lobe consolidation or in elevation of the right hemidiaphragm that may ind icate a subpulmonic effusion. Prominent heart size and plethoric pulmonary vascularity remain. 2 righ t chest tubes remain in place without pneumothorax. A right external jugular venous catheter remains in place with tip in the superior vena cava. EKG leads and oxygen tubing again overlie the chest. Impression: Little if any change since yesterday.
--- NOTE | 2016-08-20 09:50 | SOAPPROG ---
SOAP Progress Note Assessment/Plan: Assessment: s/p chest tube placement x 2 for large right PTX Plan: continue chest tubes until air leak resolves 08/20/16 09:46 Subjective: feels "all doped up" diarrhea slowing Objective: Vital Signs Temp Pulse Resp BP Pulse Ox 36.6 C 92 20 97/60 L 90 L 08/20/16 08:00 08/20/16 08:00 08/20/16 08:00 08/20/16 08:00 08/20/16 08:00 Microbiology 08/16/16 10:41 Gram Stain - Final Pleural Fluid - Aspirate 08/19/16 00:56 Gastrointestinal Tract Panel (PCR) - Final Stool No Organisms Detected Laboratory Results 08/20/16 05:45 08/20/16 05:45 08/19/16 08/20/16 08/21/16 05:59 05:59 05:59 Intake Total 4055 1823 Output Total 2890 3550 Balance 1165 -1727 PT 20.1 SEC (12.0-15.0) H 08/20/16 05:45 INR 1.71 (0.83-1.16) H 08/20/16 05:45 Physical Exam - Physical Exam General Appearance: alert Respiratory: crackles, rales Cardiac/Chest: regular rate, rhythm, other (chest tube with air leak) Abdomen: No distended ICD10 Worksheet Patient Problems: Problems Problem Status Diagnosed Dehydration Acute Pulmonary embolism Acute Anemia Acute C. difficile diarrhea Acute 04/21/16 Superficial thrombophlebitis Acute
[2016-08-20] MEDS: PHYTONADIONE 2.5 MG/2.5 ML ORAL UDL PO SCH (10:47)
[2016-08-20] MEDS: ENOXAPARIN 80 MG/0.8 ML SYR SC SCH (10:47)
[2016-08-20] MEDS: HYDROmorphONE/DILAUDID 1 MG/ML SYR IVP PRN ×2 (10:47→22:33)
[2016-08-20] MEDS: POTASSIUM CL 20 MEQ TAB PO SCH (10:48)
[2016-08-20] MEDS ORDERED: K PHOS 10 MMOL in D5W 250 ML IV ONE (12:00)
--- NOTE | 2016-08-20 13:29 | PDINTPN ---
Table Runner Progress Note Assessment/Plan: Assessment/plan: * PE s/p TPA. improving O2 requirement. CP subsiding. Continue heparin drip. Platelets normal. Holding off hypercoag w/u given acute PE. * PTX presumably from pulmonary infarct. Still with CT leak. 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 Steroids started 08/19 by GI given FH IBD and infectious etiology ruled out. Diarrhea has improved over last 24 hours as a result. Steroids may delay healing of PTX. Will eventually need colonoscopy. * Anemia - Hct stable in mid 20's and no evidence of blood loss. * 08/20/16 13:19 Objective: Vital Signs Temp Pulse Resp BP Pulse Ox 36.6 C 91 20 93/62 L 98 08/20/16 08:00 08/20/16 12:00 08/20/16 12:00 08/20/16 12:00 08/20/16 12:00 Microbiology 08/16/16 10:41 Gram Stain - Final Pleural Fluid - Aspirate 08/19/16 00:56 Gastrointestinal Tract Panel (PCR) - Final Stool No Organisms Detected Laboratory Results 08/20/16 05:45 08/20/16 05:45 08/19/16 08/20/16 08/21/16 05:59 05:59 05:59 Intake Total 4055 1823 Output Total 2890 3550 470 Balance 1165 -1727 -470 PT 20.1 SEC (12.0-15.0) H 08/20/16 05:45 INR 1.71 (0.83-1.16) H 08/20/16 05:45 Physical Exam - Physical Exam General Appearance: alert, no apparent distress, other (emotionally labile) EENT: PERRL/EOMI Neck: non-tender, supple Respiratory: rhonchi (bilateral, left>right), No wheezing, No prolonged expiration Cardiac/Chest: normal peripheral pulses, regular rate, rhythm, No systolic murmur, No friction rub Abdomen: normal bowel sounds, non-tender, soft Skin: normal color, warm/dry, No rash Extremities: pedal edema (3+ bilateral) Neuro/Psych: alert, oriented x 3 ICD10 Worksheet Patient Problems: Problems Problem Status Diagnosed Dehydration Acute Pulmonary embolism Acute Anemia Acute C. difficile diarrhea Acute 04/21/16 Superficial thrombophlebitis Acute
[2016-08-20] MEDS ORDERED: HEPARIN 10,000 UNIT/10 ML MDV IVP ONE (14:11)
--- NOTE | 2016-08-20 14:28 | HOSPPROG ---
Hospitalist Progress Note Assessment/Plan: 51-year-old female who has had problems with diarrhea and weight loss for 6 months presenting with severe pulmonary embolism status post tPA and then developed hydro pneumothorax most likely due to pulmonary infarction # acute ptx/pleural effusion s/p chest tubes - suspect d/t infarcted lung from PE oxygen saturations 90% on high-flow 25 L oxygen surgery is concerned that her nutritional status will inhibit healing of her air leak - continue chest tubes for surgery # acute PE status post tPA- certainly chronic component to the VTE - continue heparin drip # acute hypoxic respiratory failure - worsened again post-ptx- as above continue heparin and high-flow oxygen chest tubes in place # pulm htn # anasarca - 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 o. intake as tolerated # elevated INR- presumed due to malnutrition- given small doses of vitamin K to try to reverse- INR 1.7 this morning * # chronic diarrhea- suspected protein losing enteropathy- family history of Crohn's - patient not a candidate for colonoscopy due to her pulmonary instability - empiric IV steroids given- monitor closely for response - stool calprotectant has been ordered and can help with diagnosis - continue tincture of opium # anemia- status post transfusion - monitor daily # hemorrhoid/anal fissure # FCFT # prophylaxis on heparin drip # diet with limited p. o. with TPN # disposition greater than 2 midnights as patient is critically ill requiring high-flow oxygen for respiratory failure I have discussed the case with Gastroenterology- hopeful we will see clinical response to empiric steroids Subjective: feels loopy Objective: Vital Signs Temp Pulse Resp BP Pulse Ox 36.6 C 91 20 93/62 L 98 08/20/16 08:00 08/20/16 12:00 08/20/16 12:00 08/20/16 12:00 08/20/16 12:00 Microbiology 08/16/16 10:41 Gram Stain - Final Pleural Fluid - Aspirate 08/19/16 00:56 Gastrointestinal Tract Panel (PCR) - Final Stool No Organisms Detected Laboratory Results 08/20/16 05:45 08/20/16 05:45 08/19/16 08/20/16 08/21/16 05:59 05:59 05:59 Intake Total 4055 1823 Output Total 8321 4350 470 Balance 1165 -1727 -470 PT 20.1 SEC (12.0-15.0) H 08/20/16 05:45 INR 1.71 (0.83-1.16) H 08/20/16 05:45 - Physical Exam Constitutional: chronically ill appearing Eyes: anicteric sclera Ears, Nose, Mouth, Throat: moist mucous membranes Cardiovascular: regular rate and rhythym, systolic murmur Respiratory: reduced air movement Gastrointestinal: normoactive bowel sounds, soft, non-tender abdomen Genitourinary: no bladder fullness Skin: warm, normal color Musculoskeletal: No asymmetric calves Neurologic: AAOx3 Psychiatric: interacting appropriately, not anxious, depressed Lymph, Heme, Immunologic: no cervical LAD ICD10 Worksheet Patient Problems: Problems Problem Status Diagnosed Dehydration Acute Pulmonary embolism Acute Anemia Acute C. difficile diarrhea Acute 04/21/16 Superficial thrombophlebitis Acute
[2016-08-20 14:43] LABS: % IMMATURE GRANULYOCYTES 0.8 % (0.0-1.1); ABSOLUTE IMMATURE GRANULOCYTES 0.05 10^3/uL (0.00-0.10); ADD DIFF? NO; ADD MORPH? NO; ADD SCAN? YES; FRAGMENT RBC FLAG 0 (0-99); HEMATOCRIT 26.9 % (38.0-47.0); HEMOGLOBIN 8.7 g/dL (12.6-16.3); LIPEMIA HEMOLYSIS FLAG 80 (0-99); MEAN CELL HEMOGLOBIN 31.3 pg (27.9-34.1); MEAN CELL HEMOGLOBIN CONCENTR. 32.3 g/dL (32.4-36.7); MEAN CELL VOLUME 96.8 fL (81.5-99.8); PLATELET CLUMPS FLAG 20 (0-99); PLATELET COUNT 299 10^3/uL (150-400); RED BLOOD CELL COUNT 2.78 10^6/uL (4.18-5.33); RED CELL DISTRIBUTION WIDTH 18.3 % (11.5-15.2)
[2016-08-20 14:49] LABS: ATYPICAL LYMPHOCYTE FLAG 140 (0-99); LEFT SHIFT FLG 300 (0-99)
[2016-08-20 15:18] LABS: SCAN POSITIVE
[2016-08-20 15:24] LABS: HYPOCHROMIA 1+; PLATELET ESTIMATE ADEQUATE (ADEQ); STOMATOCYTES 1+
[2016-08-20 15:27] LABS: POLYCHROMASIA 1+; TOXIC GRANULATION PRESENT
[2016-08-20] MEDS: HEPARIN/DEXTROSE 500 ML IV SCH (15:32)
--- NOTE | 2016-08-20 17:39 | SOAPPROG ---
SOAP Progress Note Assessment/Plan: Assessment: Pt with BRB with clots seen this evening. Hemodynamically stable at present and H+H up from this AM. At present not a significant bleed. Suspect oozing complicated from anticoagulation. Possible anal rectal source from recent attempt to place rectal tube. Diarrhea chronic and clinically significant. W/u with stool cult, O+P, c.diffx2 , celiac negative. Pt clinically too ill for colon /egd. Pt dose have Stool WBC and fam h/o IBD so given no evidence of infectious diarrhea and severity of diarrhea reasonable to consider empiric trial of Solumol. Plan: Will stop steroids until bleeding resolved. Monitor H+H Continue anticoagulation but may need to hold if e/o significant GIB. At present very high risk for endoscopic eval due to pulmonary status and unlikely would be able to treat endoscopically, but could consider IR if significant bleeding develops. Await stool calprotectin 08/20/16 17:34 Subjective: CC bleeding Pt had episode of pink with brown stool f/b red blood clots. Pt with h/o intermittent brbpr Objective: Vital Signs Temp Pulse Resp BP Pulse Ox 36.6 C 118 H 22 H 98/63 L 95 08/20/16 08:00 08/20/16 14:00 08/20/16 14:00 08/20/16 14:00 08/20/16 14:00 Microbiology 08/16/16 10:41 Gram Stain - Final Pleural Fluid - Aspirate Laboratory Results 08/20/16 14:30 08/20/16 05:45 08/19/16 08/20/16 08/21/16 05:59 05:59 05:59 Intake Total 4055 1823 364 Output Total 2890 3550 1170 Balance 1165 -1727 -806 PT 20.1 SEC (12.0-15.0) H 08/20/16 05:45 INR 1.71 (0.83-1.16) H 08/20/16 05:45 Physical Exam - Physical Exam General Appearance: alert Respiratory: decreased breath sounds, No wheezing Cardiac/Chest: regular rate, rhythm, No diastolic murmur Abdomen: non-tender, soft ICD10 Worksheet Patient Problems: Problems Problem Status Diagnosed Dehydration Acute Pulmonary embolism Acute Anemia Acute C. difficile diarrhea Acute 04/21/16 Superficial thrombophlebitis Acute
[2016-08-20 19:20] LABS: HEMATOCRIT 22.6 % (38.0-47.0); HEMOGLOBIN 7.6 g/dL (12.6-16.3); MEAN CELL HEMOGLOBIN 32.1 pg (27.9-34.1); MEAN CELL HEMOGLOBIN CONCENTR. 33.6 g/dL (32.4-36.7); MEAN CELL VOLUME 95.4 fL (81.5-99.8); RED BLOOD CELL COUNT 2.37 10^6/uL (4.18-5.33); RED CELL DISTRIBUTION WIDTH 18.5 % (11.5-15.2)
[2016-08-20] MEDS: DIPHENOXYLATE/ATROPINE LOMOTIL 1 TAB PO PRN (20:28)
[2016-08-20] MEDS: TPN W/ FAMOTIDINE 1 EA BAG IV SCH (21:35)
[2016-08-20] MEDS: HEPARIN 10,000 UNIT/10 ML MDV IVP PRN (22:32)
[2016-08-20] MEDS: LORazepam 2 MG/ML INJ IVP PRN (22:33)
[2016-08-21] MEDS: FUROSEMIDE 20 MG/2 ML VIAL IVP SCH ×4 (02:14→19:48)
[2016-08-21] MEDS: ALBUMIN 25% 100 ML IV SCH ×2 (02:14→06:25)
[2016-08-21] MEDS: HYDROmorphONE/DILAUDID 1 MG/ML SYR IVP PRN (04:32)
[2016-08-21 04:44] LABS: ADD MORPH? NO; ADD SCAN? YES; ATYPICAL LYMPHOCYTE FLAG 90 (0-99); FRAGMENT RBC FLAG 0 (0-99); HEMATOCRIT 23.2 % (38.0-47.0); HEMOGLOBIN 7.8 g/dL (12.6-16.3); LIPEMIA HEMOLYSIS FLAG 80 (0-99); MEAN CELL HEMOGLOBIN 31.3 pg (27.9-34.1); MEAN CELL HEMOGLOBIN CONCENTR. 33.6 g/dL (32.4-36.7); MEAN CELL VOLUME 93.2 fL (81.5-99.8); PLATELET CLUMPS FLAG 10 (0-99); PLATELET COUNT 195 10^3/uL (150-400); RED BLOOD CELL COUNT 2.49 10^6/uL (4.18-5.33); RED CELL DISTRIBUTION WIDTH 19.2 % (11.5-15.2)
[2016-08-21 04:52] LABS: LEFT SHIFT FLG 300 (0-99)
[2016-08-21 04:53] LABS: INR 1.61 (0.83-1.16); PROTIME(PATIENT) 19.2 SEC (12.0-15.0)
[2016-08-21 04:57] LABS: ALANINE AMINOTRANSFERASE 32 IU/L (9-52); ALBUMIN 2.9 g/dL (3.5-5.0); ALKALINE PHOSPHATASE 41 IU/L (38-126); ANION GAP 10 mEq/L (8-16); ASPARTATE AMINOTRANSFERASE 25 IU/L (14-46); BILIRUBIN,TOTAL 5.5 mg/dL (0.1-1.4); CARBON DIOXIDE 30 mEq/l (22-31); CHLORIDE 102 mEq/L (97-110); CREATININE 0.5 mg/dL (0.6-1.0); GLOMERULAR FILTRATION RATE > 60; GLUCOSE 126 mg/dL (70-100); MAGNESIUM 2.3 mg/dL (1.6-2.3); POTASSIUM 3.9 mEq/L (3.5-5.2); SODIUM 142 mEq/L (134-144); TOTAL PROTEIN 5.2 g/dL (6.3-8.2)
[2016-08-21] MEDS: HEPARIN 10,000 UNIT/10 ML MDV IVP PRN (05:13)
[2016-08-21 05:19] LABS: ADD DIFF? YES; SCAN POSITIVE
[2016-08-21 05:24] LABS: PLATELET ESTIMATE ADEQUATE (ADEQ)
[2016-08-21 05:25] LABS: POLYCHROMASIA 1+; TOXIC GRANULATION PRESENT; TOXIC VACUOLIZATION PRESENT
[2016-08-21 05:26] LABS: HYPOCHROMIA 1+; STOMATOCYTES 1+
[2016-08-21] MEDS: LORazepam 2 MG/ML INJ IVP PRN (06:16)
[2016-08-21] MEDS: OPIUM TINCTURE 6 MG/0.6 ML UDSYR PO SCH (06:25)
[2016-08-21 06:40] LABS: BILIRUBIN-UNCONJUGATED 1.5 mg/dL (0.0-1.1)
[2016-08-21] MEDS: HEPARIN/DEXTROSE 500 ML IV SCH (07:29)
--- NOTE | 2016-08-21 08:31 | PDCONSULT ---
Talent Advisor Note: General Surgery FU note 51 y/o female s/p right closed tube thoracostomy for hydropneumothorax/ peristant air leak c/w BP fistula lungs are clear with diminished breath sounds at the bases/audible air leak right apex CT suction decreased from 20- 10 mm. rec: check CXR in AM discussed process of CT removal after air leak resolves with patient and family increase enteral nutritional intake as much as tolerated Right IJ 3x lumen cath has been in for 2 weeks/consider PICC S MD Brian, FACS
[2016-08-21] MEDS: INSULIN REGULAR, HUMAN 100 UNIT/1 ML VIAL STANDARD SC SCH ×4 (10:18→20:41)
[2016-08-21] MEDS: PHYTONADIONE 2.5 MG/2.5 ML ORAL UDL PO SCH (10:19)
[2016-08-21] MEDS: POTASSIUM CL 20 MEQ TAB PO SCH (10:19)
[2016-08-21] MEDS ORDERED: LOPERAMIDE HCL 2 MG CAP PO PRN (11:08)
[2016-08-21] MEDS ORDERED: BISMUTH SUBSALICYLATE 262 MG CHEWABLE TAB PO PRN (11:11)
--- NOTE | 2016-08-21 11:32 | SOAPPROG ---
SOAP Progress Note Assessment/Plan: Assessment: GIB pt with continued BRBPR on heparin for large PE. Now with abd pain and with continued diarrhea. DDX includes trauma form recent attempt at rectal tube , hemorrhoids or fissure (h/o), tic bleed, evolving colitis, ischemic colitis or colon cancer etc. bleeding complicated but need for anticoagulation. Having SE on tincture of opium Plan: Recommend CT scan of abd Monitor H+H Continue anticoagulation but may need to hold if e/o significant GIB. Very high leonel for colonoscopy or flex as doubt would be able to do with out sedation and high risk given pulmonary status and anticoagulation but may need to consider if CT does not reveal cause and bleeding continues Await stool calprotectin Trial of Pepto Bismol and low dose Imodium if needed 08/21/16 11:25 Subjective: CC BRBPR Pt with continued diarrhea now with blood and clots Objective: Vital Signs Temp Pulse Resp BP Pulse Ox 37.0 C 101 H 24 H 102/65 98 08/21/16 08:00 08/21/16 10:00 08/21/16 10:00 08/21/16 10:00 08/21/16 10:00 Microbiology 08/16/16 10:41 Gram Stain - Final Pleural Fluid - Aspirate Laboratory Results 08/21/16 04:30 08/21/16 04:30 08/20/16 08/21/16 08/22/16 05:59 05:59 05:59 Intake Total 1823 2233.4 Output Total 3550 3475 Balance -1727 -1241.6 PT 19.2 SEC (12.0-15.0) H 08/21/16 04:30 INR 1.61 (0.83-1.16) H 08/21/16 04:30 Physical Exam - Physical Exam General Appearance: alert, mild distress Respiratory: lungs clear, normal breath sounds Cardiac/Chest: normal peripheral pulses, regular rate, rhythm Abdomen: soft, other (tender in all quadrants) ICD10 Worksheet Patient Problems: Problems Problem Status Diagnosed Dehydration Acute Pulmonary embolism Acute Anemia Acute C. difficile diarrhea Acute 04/21/16 Superficial thrombophlebitis Acute
[2016-08-21 12:41] LABS: HEMATOCRIT 25.1 % (38.0-47.0); HEMOGLOBIN 8.3 g/dL (12.6-16.3)
--- NOTE | 2016-08-21 12:56 | PDINTPN ---
Telephone Advice Nurse Progress Note Assessment/Plan: Assessment/plan: * PE s/p TPA. improving O2 requirement. CP subsiding. Developiong LGIB on heparin drip and still having difficulty getting therapeutic heparin level. Increase drip without bolus (despite protocol) and monitor. May need alternative such as argatroban, but difficult in face of GIB. IVC filter off anticoagulants is a very suboptimal alternative. * PTX presumably from pulmonary infarct. Still with CT leak. Dr. 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 Continues with diarrhea so steroids dc'd yesterday. Abdominal CT pending as well as l;actate to evaluate for ischemic colitis. Discussed with Dr. Amaya. * Anemia - Now with BRBPR and clots. Given acute PE agree with treating through with heparin drip for now and transfusing as needed. * 08/20/16 13:19 08/21/16 12:47 Objective: Vital Signs Temp Pulse Resp BP Pulse Ox 37.1 C 107 H 33 H 100/66 90 L 08/21/16 12:00 08/21/16 12:00 08/21/16 12:00 08/21/16 12:00 08/21/16 12:00 Microbiology 08/16/16 10:41 Gram Stain - Final Pleural Fluid - Aspirate Laboratory Results 08/21/16 12:15 08/21/16 04:30 08/20/16 08/21/16 08/22/16 05:59 05:59 05:59 Intake Total 1823 2233.4 Output Total 3550 3475 Balance -1727 -1241.6 PT 19.2 SEC (12.0-15.0) H 08/21/16 04:30 INR 1.61 (0.83-1.16) H 08/21/16 04:30 Physical Exam - Physical Exam General Appearance: alert, anxiety, other (emotionally labile) EENT: PERRL/EOMI, normal ENT inspection, No scleral icterus (L) Neck: full range of motion, supple Respiratory: lungs clear, decreased breath sounds, No respiratory distress, No wheezing Cardiac/Chest: normal peripheral pulses, regular rate, rhythm Abdomen: normal bowel sounds, non-tender, soft Skin: normal color, warm/dry, No rash Lymphatic: No no adenopathy Extremities: non-tender, No pedal edema Neuro/Psych: alert, oriented x 3 ICD10 Worksheet Patient Problems: Problems Problem Status Diagnosed Dehydration Acute Pulmonary embolism Acute Anemia Acute C. difficile diarrhea Acute 04/21/16 Superficial thrombophlebitis Acute
[2016-08-21] MEDS ORDERED: ALTEPLASE 2 MG VIAL IVP PRN (14:55)
--- NOTE | 2016-08-21 15:10 | CPEKG ---
Heart Rate: 125 RR Interval: 480 P-R Interval: 136 QRSD Interval: 74 QT Interval: 304 QTC Interval: 439 P [place]: 24 QRS [place]: 118 T Wave [place]: 89 EKG Severity - ABNORMAL ECG - EKG Impression: SINUS TACHYCARDIA EKG Impression: RIGHT AXIS DEVIATION EKG Impression: LOW VOLTAGE THROUGHOUT EKG Impression: NONSPECIFIC T ABNORMALITIES, LATERAL LEADS Electronically Signed By: Marco Shirley 22-Aug-2016 19:19:10
[2016-08-21] MEDS ORDERED: IOPAMIDOL (ISOVUE-300) 100 ML BTL IV ONE ×2 (15:34→18:06)
[2016-08-21 16:04] LABS: COLOR YELLOW; LEUKOCYTE ESTERASE,URINE TRACE (NEGATIVE); NITRITE,URINE NEGATIVE (NEGATIVE)
[2016-08-21 16:19] LABS: BACTERIA 3+ /hpf (NONE SEEN); MUCUS TRACE /lpf (NONE-1+)
[2016-08-21] MEDS: MICAFUNGIN NA 100 MG in NS 100 ML IV SCH (16:23)
--- NOTE | 2016-08-21 16:41 | HOSPPROG ---
Hospitalist Progress Note Assessment/Plan: 51-year-old female who has had problems with diarrhea and weight loss for 6 months presenting with severe pulmonary embolism status post tPA and then developed hydro pneumothorax most likely due to pulmonary infarction # acute ptx/pleural effusion s/p chest tubes - suspect d/t infarcted lung from PE- CXR( personally reviewed and interpreted) persistent infiltrate chest tube in place oxygen saturations 92% on high-flow 25 L oxygen surgery is concerned that her nutritional status will inhibit healing of her air leak - continue chest tubes for surgery- decreased section today # acute PE status post tPA- certainly chronic component to the VTE - continue heparin drip # acute hypoxic respiratory failure - worsened again post-ptx- as above continue heparin and high-flow oxygen chest tubes in place # pulm htn # anasarca - 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 o. 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 o. with TPN # disposition greater than 2 midnights as patient is critically ill requiring high-flow oxygen for respiratory failure I have discussed the case with Gastroenterology- hopeful we will see clinical response to empiric steroids Subjective: feels terrible Objective: Vital Signs Temp Pulse Resp BP Pulse Ox 39.4 C H 131 H 37 H 125/88 H 92 08/21/16 16:00 08/21/16 16:00 08/21/16 16:00 08/21/16 16:00 08/21/16 16:00 Microbiology 08/16/16 10:41 Gram Stain - Final Pleural Fluid - Aspirate Laboratory Results 08/21/16 12:15 08/21/16 04:30 08/20/16 08/21/1608/22/17 05:59 05:59 05:59 Intake Total 1823 2233.4 Output Total 3550 5805 1600 Balance -1727 -1241.6 -1600 PT 19.2 SEC (12.0-15.0) H 08/21/16 04:30 INR 1.61 (0.83-1.16) H 08/21/16 04:30 - Physical Exam Constitutional: chronically ill appearing Eyes: anicteric sclera Ears, Nose, Mouth, Throat: moist mucous membranes Cardiovascular: regular rate and rhythym Respiratory: no respiratory distress, reduced air movement, inspiratory crackles Gastrointestinal: normoactive bowel sounds, tenderness Genitourinary: No no bladder fullness Skin: warm, normal color Musculoskeletal: No asymmetric calves Neurologic: AAOx3 Psychiatric: interacting appropriately, not anxious Lymph, Heme, Immunologic: no cervical LAD ICD10 Worksheet Patient Problems: Problems Problem Status Diagnosed Dehydration Acute Pulmonary embolism Acute Anemia Acute C. difficile diarrhea Acute 04/21/16 Superficial thrombophlebitis Acute
--- NOTE | 2016-08-21 16:48 | PDINTPN ---
[employer] Progress Note Assessment/Plan: Assessment/plan: * PE s/p TPA. improving O2 requirement. CP subsiding. Developiong LGIB on heparin drip and still having difficulty getting therapeutic heparin level. Increase drip without bolus (despite protocol) and monitor. May need alternative such as argatroban, but difficult in face of GIB. IVC filter off anticoagulants is a very suboptimal alternative. * PTX presumably from pulmonary infarct. Still with CT leak. Dr. 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 Continues with diarrhea so steroids dc'd yesterday. Abdominal CT pending as well as l;actate to evaluate for ischemic colitis. Discussed with Dr. Amaya. * Anemia - Now with BRBPR and clots. Given acute PE agree with treating through with heparin drip for now and transfusing as needed. * * CTSP urgently for increasing O2 requirement and HR 130. Stat CXR showed free air under the diaphragm. Dr. Torres consulted and CT results pending, but I think the CT confirms FA and likely perforation. Likely to OR and will return on vent 08/20/16 13:19 08/21/16 12:47 08/21/16 16:45 Objective: Vital Signs Temp Pulse Resp BP Pulse Ox 39.4 C H 131 H 37 H 125/88 H 92 08/21/16 16:00 08/21/16 16:00 08/21/16 16:00 08/21/16 16:00 08/21/16 16:00 Microbiology 08/16/16 10:41 Gram Stain - Final Pleural Fluid - Aspirate Laboratory Results 08/21/16 12:15 08/21/16 04:30 08/20/16 08/21/16 08/22/16 05:59 05:59 05:59 Intake Total 1823 2233.4 Output Total 3550 3475 1600 Balance -1727 -1241.6 -1600 PT 19.2 SEC (12.0-15.0) H 08/21/16 04:30 INR 1.61 (0.83-1.16) H 08/21/16 04:30 Physical Exam - Physical Exam General Appearance: moderate distress, other (confused) EENT: PERRL/EOMI Neck: full range of motion Respiratory: rhonchi (bilateral) Cardiac/Chest: normal peripheral pulses, regular rate, rhythm Abdomen: distended, guarding, No normal bowel sounds Skin: normal color, warm/dry, No rash Neuro/Psych: other (confused) ICD10 Worksheet Patient Problems: Problems Problem Status Diagnosed Dehydration Acute Pulmonary embolism Acute Anemia Acute C. difficile diarrhea Acute 04/21/16 Superficial thrombophlebitis Acute
--- NOTE | 2016-08-21 17:11 | DX ---
Portable AP chest. August 21, 2016At 1510 History: Increasing O2 needs. Comparison Study: August 20, 2016. Findings: From prior examination, there has been development of pneumoperitoneum, with air identified underneath the right hemidiaphragm. Small right apical pneumothorax is also new. 2 right chest tubes are present. Slight increase in consolidation, right lower lobe from prior examination. Patchy infil trate left midlung is stable. Persistent dense left lower lobe atelectasis/infiltrate is unchanged. C ardiac silhouette remains moderately prominent. Right jugular central venous catheter has been retracted to the upper SVC from prior study. Impression: 1. New evidence of pneumoperitoneum, with air underneath the right hemidiaphragm. 2. Small right apical pneumothorax, new. 3. Increasing consolidation, right lower lobe. 4. Patchy infiltrate, left midlung. Left lower lobe atelectasis/infiltrate, stable. 5. Retraction of right jugular central venous catheter to the upper SVC. Patient subsequently underwent CT examination of the abdomen and pelvis, with contrast, reported sepa rately.
[2016-08-21 17:22] LABS: BASE EXCESS 3.4 mEq/L (-2.5-2.5); BICARBONATE 27 mEq/L (22-26); MEASURED OXYGEN SATURATION 94 % (92-95); PCO2 36 mmHg (34-38); PO2 71 mmHg (65-75); TCO2 28 mEq/L (23-27)
[2016-08-21] MEDS ORDERED: POTASSIUM Cl (KCl) 50 ML IV ONE (17:22)
[2016-08-21 17:23] LABS: P/F RATIO 71 RATIO
[2016-08-21 17:24] LABS: O2 CONCENTRATIION 100 % (0-100); PRESSURE SUPPORT 25
--- NOTE | 2016-08-21 17:53 | CT ---
CT Scan of the Abdomen and Pelvis (With Contrast) 1608 hours History: Chronic diarrhea with malnutrition and blood in the stools. Possible bowel perforation. Technique: Axial computed tomographic images of the abdomen and pelvis were obtained with the unevent ful intravenous administration of 85 mL Isovue-300 contrast. Images were reviewed in multiple planes. Dose reduction techniques were utilized. Comparison to prior CT study of March 26, 2016. CT Abdomen and Pelvis Findings: Bowel: Moderate free air is identified in the anterior abdomen. There is ascites that is slightly inc reased in density around the liver and spleen extending into the colic gutter into the pelvis. There is moderate diffuse thickening of the colon. There is some gas that extends into the anterior aspect of the cecum wall that could represent point of perforation. Normal contrast is present within small bowel loops. There is no evidence of underlying small bowel obstruction. The stomach has a normal con tour without focal thickening. Lung bases: There is moderate patchy consolidation involving the visualized right middle lobe and rig ht lower lobe as well as lingula and left lower lobe. There is mild to moderate left pleural effusion . Pneumothorax is noted on the right. Right-sided chest tube is in place.. Liver: There is moderate diffuse hepatic steatosis. No focal hepatic mass is identified. Spleen: There are wedge-shaped defects involving the spleen suspicious for splenic infarcts. The visu alized portions of the proximal to mid splenic artery are patent. No thrombus is identified. Gallbladder and Bile Ducts: There is some thickening of the gallbladder wall with subtle increased d ensity within the gallbladder lumen possibly representing gallbladder calculi or sludge. No biliary d uctal dilatation is identified. Pancreas: Normal. Adrenals: Normal. Kidneys: No obstruction or solid masses. Abdominal Aorta: No aneurysm. Pelvic structures: The uterus has a normal contour. No adnexal masses are seen. Bladder: Decompressed with [place] catheter in place. Appendix: Normal. Skeletal system: Vertebral body heights are well-maintained. There are no significant lytic or scler otic osseous lesions. Impression: 1. Free air seen within the abdomen with moderate ascites is slightly increased in density compatible with blood products versus possibility of contrast from the bowel lumen. The most likely site for pe rforation is the anterior cecum as detailed above. There is underlying moderate diffuse colitis suspe cted. 2. Bibasilar consolidation/pneumonia involving the lungs with mild right-sided pneumothorax. Right-si ded chest tube is noted. 3. Moderate diffuse hepatic steatosis. 4. Thickening of the gallbladder wall with some increased density in the gallbladder lumen related to small calculi and/or sludge. Rule out chronic cholecystitis. This study was discussed by telephone with Dr. Xander Torres at 1743 hours
--- NOTE | 2016-08-21 18:32 | SOAPPROG ---
Downtime Inpatient MD Late Entry SOAP Note: Aniya was noted to have increasing oxygen requirements this afternoon and a repeat CXR showed right subphrenic air. This was confirmed on CT which showed diffuse thickening of the colon, free air and fluid in the abdominal cavity in addition to multiple splenic infarcts. I have recommended exploratory laparotomy for evaluation and correction of the bowel perforation causing these symptoms and findings. She has been on Heparin for multiple pulmonary emboli and will require placement of an IVC filter prior to surgery. She has an ASA class IV risk going into surgery with an unclear etiology for progressive deterioration over the past several weeks. I have discussed this with her mother, her and her brother. I am standing by to start surgery as soon as her IVC filter has been placed. A type and screen was requested and she will likely need transfusion intra-op/post -op. I plan on leaving her intubated after surgery. Razia Torres MD, FACS
[2016-08-21] MEDS ORDERED: fentaNYL 100 MCG/2 ML INJ ONE ×2 (18:46→23:30)
--- NOTE | 2016-08-21 19:37 | IR ---
Imaging-Guided Peripherally Inserted Central Catheter History: Central line access. Abdominal surgery needed.. Prophylactic Antibiotic: Cefazolin was not ordered and administered for antimicrobial prophylaxis be cause it was not medically necessary for this procedure. VTE Prophylaxis: There is not an order for VTE prophylaxis to be given within 24 hours after procedu re end time because it was not medically necessary for this procedure. Crosscutting Measure: Patient's current list of medications including all known prescriptions, over- the-counters, herbals, and vitamin/mineral/dietary supplements are reviewed. Medications' name, dosa ge, frequency, and route of administration are confirmed. Technique: Following informed consent, the right arm was prepped and draped in sterile fashion. 1% Xy locaine was used for local anesthetic. All elements of maximal sterile barrier technique including cap, mask, sterile gown, sterile gloves, large sterile sheet, hand hygiene, and 2% chlorhexidine for cutaneous antisepsis, followed. Ultrasound evaluation of potential access site was performed. After successfully identifying a patent vessel, ultrasound guidance was used to puncture the vein. A permanent recording was created for the patient's record. Ultrasound transducer was placed in sterile sleeve and used for real-time imaging guidance over steri le gel to enter the basilic vein. 0.018 measuring wire was passed centrally under fluoroscopic contro l. A skin cassidy with scalpel blade was followed by removing the access needle. A 5 Brazilian peel-away sh eath was followed by a 5 Brazilian single-lumen central catheter, trimmed to 42 cm length.. The tip of the catheter was positioned centrally and the guidewire removed. A single fluoroscopic spot image wa s obtained in inspiration. The hub of the catheter was fixed to the skin using a sterile StatLock adh esive device, and a sterile dressing was applied. The catheter was irrigated. Findings: The tip of the central catheter terminates at the junction of the superior vena cava and th e right atrium. Fluoroscopy: 0.1 minutes, 1 images Impression: 5 Brazilian double lumen peripherally inserted central catheter is ready to use.
[2016-08-21] MEDS: CHLORHEXIDINE GLUCONATE 15 ML UDL PO SCH (19:49)
--- NOTE | 2016-08-21 19:51 | IR ---
Filter Placement Indication: PE. Needs to be off of anticoagulation for abdominal surgery. Informed Consent: Obtained from the patient. Risks and benefits were discussed. Cross Cutting Measure: Patient's current list of medications including all known prescriptions, over -the-counters, herbals, and vitamin/mineral/dietary supplements are reviewed. Medications' name, dos age, frequency, and route of administration are confirmed. Patient is a non-smoker. Prophylactic Antibiotic: Cefazolin was not ordered and administered for antimicrobial prophylaxis be cause it was not medically necessary. VTE Prophylaxis: There is not an order for VTE prophylaxis to be given within 24 hours of the proced ure end time. VTE prophylaxis was not given because it was not medically necessary. Technique: Patient is placed in supine position. A "timeout" procedure was performed to identify th e correct patient and the correct procedure. 1% Xylocaine was used for local anesthetic. All eleme nts of maximal sterile barrier technique, including cap, mask, sterile gown, sterile gloves, large st erile sheet, hand hygiene, and 2% chlorhexidine for cutaneous antisepsis, followed. Ultrasound evaluation of potential access site was performed. After successfully identifying a paten t vessel, ultrasound guidance was used to puncture the vessel. A permanent recording was created for the patient's record. When ultrasound is used, sterile gel and probe covers are used. Right common femoral vein is accessed under ultrasound guidance. [place] wire is advanced, followed by Micropuncture sheath. 0.035 wire is advanced. Filter placement sheath is advanced into right iliac vein. IV cavagram is performed, showing location of the renal veins. Filter was then loaded, and deployed with the hook of the filter at the inferior endplate of L2. Blayne al veins are at L2. Hemostasis was obtained using pressure holding. Findings: Normal size of IVC. No clot in the iliac system or the IVC. Medication: Fentanyl only. Fluoroscopy: 1.7 minutes, three images. Impression: Inferior vena caval filter placed, as above.
[2016-08-21] MEDS ORDERED: BUPIVACAINE 0.25% 30 ML SDV ONE (20:13)
[2016-08-21] MEDS ORDERED: ETOMIDATE 20 MG/10 ML VIAL ONE (20:35)
[2016-08-21] MEDS ORDERED: fentaNYL 250 MCG/5 ML INJ ONE (20:36)
[2016-08-21] MEDS ORDERED: ROCURONIUM 50 MG/5 ML VIAL ONE (20:38)
[2016-08-21] MEDS ORDERED: FAMOTIDINE 20 MG/NACL 50 ML IV SCH (21:00)
[2016-08-21] MEDS ORDERED: DESFLURANE 240 ML BOTTLE IH ONE (21:48)
[2016-08-21] MEDS ORDERED: MIDAZOLAM 2 MG/2 ML VIAL ONE ×2 (23:30)
[2016-08-22] MEDS ORDERED: fentaNYL 100 MCG/2 ML INJ IVP PRN (00:06)
--- NOTE | 2016-08-22 00:06 | POSTOPPROG ---
Post Op Note Date of Operation: 08/22/16 Surgeon: Eagle Torres (, FACS) Anesthesiologist: Vinay Fletcher MD Anesthesia: GET(General Endotracheal) Pre-op Diagnosis: peritonitis secondary to perforated viscus Post-op Diagnosis: diffuse colitis/perforation transverse colon Procedure: laparotomy/ascending + transverse colectomy/ileostomy/liver bx Findings: swollen/fatty liver with ascites, diffuse colitis/perforation transverse Inf/Abcess present in the surg proc area at time of surgery?: Yes Depth: Organ Space EBL: 50-100 Complications: none Specimen(s): ascending/transverse colon/portion of omentum/wedge biopsy left lobe liver
[2016-08-22 00:33] LABS: HEMATOCRIT 28.1 % (38.0-47.0); MEAN CELL VOLUME 96.9 fL (81.5-99.8); RED BLOOD CELL COUNT 2.9 10^6/uL (4.18-5.33); RED CELL DISTRIBUTION WIDTH 19.1 % (11.5-15.2)
[2016-08-22 00:56] LABS: ALANINE AMINOTRANSFERASE 49 IU/L (9-52); ALBUMIN 2.4 g/dL (3.5-5.0); ALKALINE PHOSPHATASE 53 IU/L (38-126); ANION GAP 9 mEq/L (8-16); ASPARTATE AMINOTRANSFERASE 93 IU/L (14-46); BILIRUBIN,TOTAL 6.7 mg/dL (0.1-1.4); CALCIUM 7.1 mg/dL (8.5-10.4); CARBON DIOXIDE 26 mEq/l (22-31); CHLORIDE 105 mEq/L (97-110); CREATININE 0.5 mg/dL (0.6-1.0); GLOMERULAR FILTRATION RATE > 60; GLUCOSE 103 mg/dL (70-100); POTASSIUM 4.2 mEq/L (3.5-5.2); SODIUM 140 mEq/L (134-144); TOTAL PROTEIN 4.8 g/dL (6.3-8.2)
[2016-08-22 01:06] LABS: BILIRUBIN-CONJUGATED 5.5 mg/dL (0.0-0.5); BILIRUBIN-UNCONJUGATED 1.2 mg/dL (0.0-1.1)
[2016-08-22] MEDS: fentaNYL/NACL 100 ML IV SCH ×2 (01:19→20:55)
[2016-08-22] MEDS: PROPOFOL/EMULSION 100 ML IV SCH ×2 (01:19→11:39)
[2016-08-22] MEDS: TPN W/ FAMOTIDINE 1 EA BAG IV SCH (01:19)
[2016-08-22] MEDS ORDERED: ALBUMIN 5% 500 ML BOTTLE IV ONE (01:26)
[2016-08-22] MEDS: LORazepam 2 MG/ML INJ IVP PRN (01:54)
[2016-08-22] MEDS: PIPERACILLIN/TAZO 3.375 GM/DEX 50 ML IV SCH ×4 (01:55→22:20)
[2016-08-22 01:59] LABS: BASE EXCESS -1.5 mEq/L (-2.5-2.5); BICARBONATE 25 mEq/L (22-26); MEASURED OXYGEN SATURATION 98 % (92-95); PCO2 52 mmHg (34-38); PO2 144 mmHg (65-75); TCO2 26 mEq/L (23-27)
[2016-08-22 02:00] LABS: O2 CONCENTRATIION 40 % (0-100); P/F RATIO 360 RATIO; PATIENT RATE 12; PRESSURE SUPPORT 10; SIMV YES
[2016-08-22] MEDS ORDERED: ALBUMIN 5% 500 ML IV ONE ×3 (02:00→08:00)
[2016-08-22] MEDS ORDERED: NS 500 ML IV ONE (02:06)
--- NOTE | 2016-08-22 02:11 | SOAPPROG ---
Downtime Inpatient MD Late Entry SOAP Note: Aniya remains intubated in ICU BP remains in the 80-90 range CVP 8-10 FiO2 down to .5/persistant air leak right thorax Will initiate Dopamine as needed to maintain BP/recheck Hgb Findings at surgery discussed in detail with mother and S MD Brian, FACS
[2016-08-22 02:27] LABS: BASE EXCESS -1.2 mEq/L (-2.5-2.5); BICARBONATE 23 mEq/L (22-26); MEASURED OXYGEN SATURATION 96 % (92-95); PCO2 40 mmHg (34-38); PO2 93 mmHg (65-75); TCO2 24 mEq/L (23-27)
[2016-08-22 02:28] LABS: END TIDAL CO2 31; HEMATOCRIT 24.5 % (38.0-47.0); HEMOGLOBIN 8.1 g/dL (12.6-16.3); O2 CONCENTRATIION 50 % (0-100); P/F RATIO 186 RATIO; PATIENT RATE 33; SIMV YES
[2016-08-22 02:29] LABS: PRESSURE SUPPORT 7
[2016-08-22 06:47] LABS: BASE EXCESS -0.6 mEq/L (-2.5-2.5); BICARBONATE 24 mEq/L (22-26); MEASURED OXYGEN SATURATION 96 % (92-95); PCO2 44 mmHg (34-38); PO2 97 mmHg (65-75); TCO2 25 mEq/L (23-27)
[2016-08-22 06:48] LABS: ABSOLUTE NRBC COUNT 0.05 10^3/uL (0-0.01); ADD MORPH? NO; ADD SCAN? YES; FRAGMENT RBC FLAG 0 (0-99); HEMOGLOBIN 11.2 g/dL (12.6-16.3); LIPEMIA HEMOLYSIS FLAG 90 (0-99); MEAN CELL HEMOGLOBIN 31.7 pg (27.9-34.1); MEAN CELL HEMOGLOBIN CONCENTR. 33.9 g/dL (32.4-36.7); MEAN CELL VOLUME 93.5 fL (81.5-99.8); MEAN PLATELET VOLUME 10.7 fL (8.7-11.7); NRBC-AUTO% 0.5 % (0.0-0.2); O2 CONCENTRATIION 60 % (0-100); P/F RATIO 162 RATIO; PLATELET CLUMPS FLAG 0 (0-99); PLATELET COUNT 200 10^3/uL (150-400); RED BLOOD CELL COUNT 3.53 10^6/uL (4.18-5.33); RED CELL DISTRIBUTION WIDTH 18.3 % (11.5-15.2)
[2016-08-22 06:49] LABS: END TIDAL CO2 33; PATIENT RATE 36; PRESSURE SUPPORT 10
[2016-08-22 06:54] LABS: ATYPICAL LYMPHOCYTE FLAG 120 (0-99); LEFT SHIFT FLG 300 (0-99)
[2016-08-22 07:09] LABS: ADD DIFF? YES; SCAN POSITIVE
[2016-08-22 07:17] LABS: LARGE PLATELETS PRESENT; MACROCYTES 1+; PLATELET ESTIMATE ADEQUATE (ADEQ); POLYCHROMASIA 1+
[2016-08-22 07:18] LABS: TOXIC GRANULATION PRESENT; TOXIC VACUOLIZATION PRESENT
[2016-08-22 07:23] LABS: INR 2.07 (0.83-1.16); PROTIME(PATIENT) 23.4 SEC (12.0-15.0)
[2016-08-22 07:28] LABS: ANION GAP 11 mEq/L (8-16); CALCIUM 7.1 mg/dL (8.5-10.4); CARBON DIOXIDE 25 mEq/l (22-31); CHLORIDE 104 mEq/L (97-110); CREATININE 0.4 mg/dL (0.6-1.0); GLOMERULAR FILTRATION RATE > 60; GLUCOSE 116 mg/dL (70-100); POTASSIUM 4.5 mEq/L (3.5-5.2); SODIUM 140 mEq/L (134-144)
--- NOTE | 2016-08-22 07:59 | DX ---
Portable Chest 6:21 AM History: Intubated ICU patient, extensive pulmonary embolic disease Comparison: 00:12 am Findings: ET tube, NG tube, right arm PICC line, right jugular vein line and 2 right chest tubes aaliyah in in place. A right pneumothorax is slightly larger. I suspect it is greatest anteriorly. Cardiomeg oscar, pulmonary vascular plethora and subsegmental bilateral lung consolidation remains, improved in t he left upper lobe. There is stable blunting of the right costophrenic angle, consistent with a small right pleural effusion. Impression: Increasing anterior right pneumothorax with 2 right chest tubes remaining in place.
[2016-08-22] MEDS ORDERED: CHLORHEXIDINE GLUCONATE 15 ML UDL PO SCH (08:00)
--- NOTE | 2016-08-22 08:12 | DX ---
Portable Chest 00:12 History: Check tube placement, evaluate for pneumothorax, rapid deterioration, unable to ventilate Comparison: August 20, 6:00 AM Findings: There is increased left upper lobe infiltrate. Left lower lobe consolidation remains. Cardi omegaly remains. Inspiratory phase is slightly decreased. Perhaps slight increase in the patient's sm all right pneumothorax, with increased lucency seen adjacent to the right lower lung.. 2 right chest tubes remain in place. There is no evidence for tension. New right arm PICC line, ET tube and NG tub e are all in good position. There is a stable right jugular venous catheter with tip overlying the rosario perior vena cava. Increased thickening of the right minor and major fissures suggests interfissural f luid. Impression:1. Increased left upper lobe consolidation suspicious for pneumonia. Did this patient asp irate? 2. Good positions of new ET tube, NG tube and PICC line. 3. Perhaps some increase in a right pneumothorax. No evidence for tension.
[2016-08-22] MEDS ORDERED: FAMOTIDINE 20 MG/NACL 50 ML IV SCH (09:00)
[2016-08-22] MEDS: NOREPINEPHRINE BITARTRATE 4 MG in D5W 500 ML IV SCH ×3 (09:19→20:56)
[2016-08-22] MEDS: INSULIN REGULAR, HUMAN 100 UNIT/1 ML VIAL STANDARD SC SCH ×3 (10:09→19:10)
[2016-08-22] MEDS: POTASSIUM CL 20 MEQ TAB PO SCH (10:09)
[2016-08-22] MEDS: MICAFUNGIN NA 100 MG in NS 100 ML IV SCH (10:11)
--- NOTE | 2016-08-22 10:30 | SOAPPROG ---
SOAP Progress Note Assessment/Plan: Assessment: FU RT HEMO-PNEUMOTHORAX/ CO SHORTNESS OF BREATH/ AFEBRILE NO AIR LEAK/ MODERATE DRAINAGE/ CXR WELL EXPANDED Plan: CONTINUE SUCTION/ MAY BE HEADED TO VENT SOON 08/18/16 13:53 08/22/16 10:28 SP LAPAROTOMY FOR PERFED COLON AND PROBABLE UC/ MILDLY HYPOTENSIVE/ UO MARGINAL/ STILL ON PRESSORS/ WOUND OK/ STOMAS OK WILL NEED MORE VOLUME SUPPORT Objective: Vital Signs Temp Pulse Resp BP Pulse Ox 38.7 C H 118 H 44 H 95/69 L 96 08/22/16 07:57 08/22/16 10:00 08/22/16 10:00 08/22/16 10:00 08/22/16 10:00 Microbiology 08/21/16 21:40 Gram Stain - Final Peritoneal Fluid - Swab 08/16/16 10:41 Gram Stain - Final Pleural Fluid - Aspirate Laboratory Results 08/22/16 06:30 08/22/16 06:30 08/21/16 08/22/16 08/23/16 05:59 05:59 05:59 Intake Total 2233.4 4500 Output Total 3475 1835 250 Balance -1241.6 2665 -250 PT 23.4 SEC (12.0-15.0) H 08/22/16 06:40 INR 2.07 (0.83-1.16) H 08/22/16 06:40 ICD10 Worksheet Patient Problems: Problems Problem Status Diagnosed Dehydration Acute Pulmonary embolism Acute Anemia Acute C. difficile diarrhea Acute 04/21/16 Superficial thrombophlebitis Acute
[2016-08-22 10:56] LABS: BASE EXCESS -1.4 mEq/L (-2.5-2.5); BICARBONATE 23 mEq/L (22-26); MEASURED OXYGEN SATURATION 96 % (92-95); PCO2 39 mmHg (34-38); PO2 95 mmHg (65-75); TCO2 24 mEq/L (23-27)
[2016-08-22 10:57] LABS: O2 CONCENTRATIION 50 % (0-100); P/F RATIO 190 RATIO; TOTAL RATE 37
[2016-08-22 10:59] LABS: ASSIST CONTROL YES
[2016-08-22] MEDS: CHLORHEXIDINE GLUCONATE 15 ML UDL PO SCH ×2 (11:39→20:55)
[2016-08-22] MEDS: NS 1,000 ML IV SCH ×2 (11:39→20:56)
--- NOTE | 2016-08-22 12:22 | GOP ---
[f rep st] OPERATIVE REPORT DATE OF OPERATION: 08/21/2016 SURGEON: Eagle Torres MD, FACS CAD ENGINEER: Sandra Larkin CST. ANESTHESIA: General endotracheal. ANESTHESIOLOGIST: Vishal Fletcher MD PREOPERATIVE DIAGNOSIS: Perforated viscus. POSTOPERATIVE DIAGNOSIS: 1. Pancolitis with perforation of the transverse colon. 2. Hepatomegaly with ascites. PROCEDURE PERFORMED: 1. Exploratory laparotomy, extended right colectomy with ileostomy and mucous fistula. 2. Wedge biopsy of the left lobe of the liver. FINDINGS: ESTIMATED BLOOD LOSS: 50 mL. INDICATIONS: Patient is a 51-year-old female with a 4-month history of diarrhea , admitted 2 weeks prior because of significant pulmonary embolus and pulmonary infarct. The patient had been on heparin, developed a bronchopleural fistula, which required placement of multiple right chest tubes. She had persistent diarrhea and, on the day of surgery, developed increasing hematochezia. The etiology of her diarrhea remained unclear. She has an adult brother with long- standing Crohn disease. Prior to surgery, in addition to confirming free air in the peritoneal cavity, patient was noted to have ascites, hepatomegaly, and multiple splenic infarcts. DESCRIPTION OF PROCEDURE: After informed consent was obtained, the patient was brought to the operating room, placed under general anesthesia. She had a right internal jugular central venous catheter for monitoring as well as a PICC line, and earlier an inferior vena caval filter had been placed, as she had been taken off heparin. The abdomen was prepped and draped in the usual fashion. The chest tubes were excluded from the surgical field. Before proceeding, a time-out and identification of the patient was performed. The abdomen was entered through a midline incision and explored. The patient had approximately a liter of bright yellow ascites and no foul odor in the peritoneal cavity. There was, however, some fibrinopurulent exudate in the region of the omentum. As the omentum was elevated off the transverse colon, a pinpoint perforation was identified. Upon further inspection of the colon, she was noted to have pancolitis with areas of questionable viability, extending from the cecum to the transverse colon. The small bowel, other than some mild serositis, appeared normal, and the colitis was more centered in the ascending colon, transverse colon, and began to take on a more normal serosal appearance at least in the descending colon and sigmoid colon. Exploration of the remainder of the abdomen revealed no small bowel abnormalities. The stomach and duodenum were normal. The patient's liver was swollen to twice its normal size with fatty infiltration. The patient's gallbladder, though edematous, was otherwise normal in appearance and palpation. She had an unremarkable uterus, normal ovaries bilaterally, with multiple left paratubal cysts. I proceeded with an extended right colectomy as follows. The omentum was taken off the transverse colon, starting near the hepatic flexure and extending to the perforation site. Here, the mesentery was cleared at the border of the bowel distal to the perforation, and the bowel divided with a STERLING stapler. Because of the edema and thickening of the bowel, the staple line did not hold particularly well and required over-sewing to prevent spillage of contents. A culture had been obtained of the peritoneal fluid prior to proceeding with resection. The mesentery was then taken down with a combination of the Harmonic scalpel. Larger vessels were clamped, divided, and ligated with 2-0 Vicryl ligatures. The terminal ilium was divided near the ileocecal valve, and the ileocolic vessels clamped, divided and ligated with 2-0 Vicryl ligatures. Specimen was removed from the field and submitted for permanent section. Before proceeding with formation of an ileostomy, I performed a wedge biopsy of the left lobe of the liver and submitted this for permanent section. Hemostasis was secured with cautery. An ileostomy was fashioned in the right lower quadrant, where the tip of the right lobe of the liver had extended to below the umbilicus. The stoma was created in the usual fashion, and the ilium pulled through without tension. I elected to perform a mucous fistula because of the poor condition of the colon and the long segment that could develop a pseudoobstruction resulting in a staple line blowout. A left upper quadrant stomal opening was created, and the colon was brought out through this opening for creation of a mucous fistula. Hemostasis was secured within the peritoneal cavity. 4 L of warm normal saline were used to irrigate the peritoneal cavity. This was continued until the effluent was clear. The midline fascia was then closed with continuous running #1 looped PDS suture. The skin was closed with coral. The ileostomy and colostomy were matured, after the bowel was secured to the fascia with interrupted 3-0 Vicryl sutures. The eversion of the ileostomy resulted in a nice 2 cm nipple, with eversion of the mucosa to serosa and subdermis with interrupted 3-0 chromic sutures. In a similar fashion, the colostomy was matured. Stomal appliances were placed. The patient was returned, intubated, to the intensive care unit in critical condition. She did have periods of mild hypotension, but for most of the case, had blood pressure similar to what she had preoperatively, in the 80-90 systolic range. She did not receive blood transfusions intraoperatively, but had moderate volume resuscitation. COMPLICATIONS: None. /[id number]/MODL MTDD
--- NOTE | 2016-08-22 12:32 | SOAPPROG ---
SOAP Progress Note Assessment/Plan: Assessment: Pt with acute decline yesterday afternoon with bowel perforation with diffuse colitis requiring surgery. Path pending. GIB pt with continued BRBPR on heparin for large PE. Now with abd pain and with continued diarrhea. DDX includes trauma form recent attempt at rectal tube , hemorrhoids or fissure (h/o), tic bleed, evolving colitis, ischemic colitis or colon cancer etc. bleeding complicated by need for anticoagulation. Having SE on tincture of opium Plan: Await path from bowel resection Continue supportive care 08/22/16 12:28 Subjective: CC bowel perforation Pt intubated sedated Objective: Vital Signs Temp Pulse Resp BP Pulse Ox 37.8 C 122 H 43 H 91/64 L 96 08/22/16 11:00 08/22/16 12:00 08/22/16 12:00 08/22/16 12:00 08/22/16 12:00 Microbiology 08/21/16 21:40 Gram Stain - Final Peritoneal Fluid - Swab 08/16/16 10:41 Gram Stain - Final Pleural Fluid - Aspirate Laboratory Results 08/22/16 06:30 08/22/16 06:30 08/21/16 08/22/16 08/23/16 05:59 05:59 05:59 Intake Total 2233.4 4500 Output Total 3475 1835 250 Balance -1241.6 2665 -250 PT 23.4 SEC (12.0-15.0) H 08/22/16 06:40 INR 2.07 (0.83-1.16) H 08/22/16 06:40 Physical Exam - Physical Exam General Appearance: other (sedated) Respiratory: decreased breath sounds Cardiac/Chest: regular rate, rhythm, No edema Abdomen: soft, distended, No normal bowel sounds ICD10 Worksheet Patient Problems: Problems Problem Status Diagnosed Dehydration Acute Pulmonary embolism Acute Anemia Acute C. difficile diarrhea Acute 04/21/16 Superficial thrombophlebitis Acute
--- NOTE | 2016-08-22 13:52 | WOCRNPDOC ---
WOCRN Advanced Assessment Note - Skin Integrity Problem, Advanced Assess Coccyx Pressure Injury Dressing Type: Allevyn Life Dressing Description: Soiled Exudate Amount: None Integumentary Issue Intervention: Dressing Removed Melissa Wound Tissue: Erythema Melissa Wound Swelling: Mild Wound Bed Constitution: Granulation Tissue (30%), Adhered Slough, Loose Slough ( 70% mixed loose/adhered slough) Wound Edges: Not Attached, Epibole Site Measurement - Head-to-Toe Length X Width X Depth (cm): 1x4.5x1 (times 3 wounds each approx 1x1) Pressure Injury Stage: Unstageable Pressure Injury Present on Admit: No Skin Integrity Problem Comment: Patient stooling non stop liquid stool when turned. Dressing was soiled on assessment. Discussed findings with wound RN Jossy who rounded on the pateint on Friday. We both concurred that the wounds now have pressure injury qualities and are deteriorating. Therefore the wound/s are now going to be staged as a pressure wound/s. The three distinct wounds are deeper, and larger, and appear to be merging into one wound. Aisha CUENCA in room for care. Wound care will round again on 08/26.
--- NOTE | 2016-08-22 13:54 | PDINTPN ---
Morning Show Newscast Producer Progress Note Assessment/Plan: Assessment/plan: * Peritonitis s/p bowel perforation, s/p hemicolectomy and liver biopsy for suspicious lesion. She remained hypotensive this am so we changed her dopamine to levophed with improvement. Added vasopressin to allow for adequate sedation and she was unresponsive to both fluid challenge (albumin) and by NICOM. Currently on Zoysn and Micafungin with ID guidance. FU cx's. Prelim findings suggestive of ulcerative colitis. * Respiratory failure with hypoxia- 2/2 above plus PE and PTX. Planning to rest today on vent, titrate FiO2 as tolerated and possible extubation in AM depending on clinical course. Changed to AC from SIMV to decrease WOB. Vent day #1 * PE s/p TPA. IVC filter placed and anticoagulation held. Resume heparin drip when cleared by surgery. * PTX presumably from pulmonary infarct. Still with CT leak. Observe for now. 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 Await path report. Continue with TPN. * Anemia - transfuse Hgb <7.0 * 08/22/16 13:55 Objective: Vital Signs Temp Pulse Resp BP Pulse Ox 37.8 C 113 H 38 H 83/61 L 96 08/22/16 11:00 08/22/16 12:26 08/22/16 12:26 08/22/16 12:26 08/22/16 12:26 Microbiology 08/21/16 21:40 Gram Stain - Final Peritoneal Fluid - Swab 08/16/16 10:41 Gram Stain - Final Pleural Fluid - Aspirate Laboratory Results 08/22/16 06:30 08/22/16 06:30 08/21/16 08/22/16 08/23/16 05:59 05:59 05:59 Intake Total 2233.4 4500 Output Total 3475 1835 250 Balance -1241.6 2665 -250 PT 23.4 SEC (12.0-15.0) H 08/22/16 06:40 INR 2.07 (0.83-1.16) H 08/22/16 06:40 Physical Exam - Physical Exam General Appearance: no apparent distress, other (sesated on vent) EENT: PERRL/EOMI, normal ENT inspection Neck: non-tender, supple Respiratory: decreased breath sounds, rhonchi (bilateral) Cardiac/Chest: normal peripheral pulses, regular rate, rhythm Abdomen: soft, other (dressing C&D, ileostomy in place), No normal bowel sounds Skin: normal color, warm/dry, No rash Extremities: pedal edema (trace) ICD10 Worksheet Patient Problems: Problems Problem Status Diagnosed Dehydration Acute Pulmonary embolism Acute Anemia Acute C. difficile diarrhea Acute 04/21/16 Superficial thrombophlebitis Acute
--- NOTE | 2016-08-22 14:03 | HOSPPROG ---
Hospitalist Progress Note Assessment/Plan: 51-year-old female who has had problems with diarrhea and weight loss for 6 months presenting with severe pulmonary embolism status post tPA and then developed hydro pneumothorax most likely due to pulmonary infarction # Acute transfers colon perforation overnight- patient taken for emergent IVC filter and then intraoperative repair with Dr. Torres Patient with partial colectomy and ileostomy- colonic biopsy and wedge liver biopsy pending - continue IV pain medication - postop care per surgery # acute ptx/pleural effusion s/p chest tubes - suspect d/t infarcted lung from PE- CXR yesterday (personally reviewed and interpreted) free air under right diaphragm oxygen saturations 96% on 50% Fio2 on ventilator - continue chest tubes for surgery- decreased section today # acute PE status post tPA- certainly chronic component to the VTE - IVC filter placed - heparin drip on hold until cleared by surgery # acute hypoxic respiratory failure - worsened again post-ptx- as above # pulm htn # anasarca - suspect secondary to chronic diarrhea - continue intermittent albumin for hypotension # severe protein calorie malnutrition - dietary following, previous calorie count in progress- pre albumin is very low - continue TPN - NPO postoperative # elevated INR- presumed due to malnutrition- given small doses of vitamin K upon initial presentation to reverse- INR 2.07 this morning # chronic diarrhea- family history of Crohn's- visual inspection by surgery overnight highly suspicious for ulcerative colitis - biopsies pending - gastroenterology following - can initiate treatment when diagnosis made # anemia- status post transfusion x 3 units packed red blood cells since admission - monitor daily # history of hemorrhoid/anal fissure # FCFT # prophylaxis on hold postop # diet NPO with TPN # disposition greater than 2 midnights as patient is critically ill requiring ventilatory support I have discussed the case with Dr. Márquez- will keep the patient ventilated today as she recovers from acute perforation yesterday Subjective: emergently to the operating room overnight Objective: Vital Signs Temp Pulse Resp BP Pulse Ox 37.8 C 113 H 38 H 83/61 L 96 08/22/16 11:00 08/22/16 12:26 08/22/16 12:26 08/22/16 12:26 08/22/16 12:26 Microbiology 08/21/16 21:40 Gram Stain - Final Peritoneal Fluid - Swab 08/16/16 10:41 Gram Stain - Final Pleural Fluid - Aspirate Laboratory Results 08/22/16 06:30 08/22/16 06:30 08/21/16 08/22/16 08/23/16 05:59 05:59 05:59 Intake Total 2233.4 4500 Output Total 3475 1835 250 Balance -1241.6 2665 -250 PT 23.4 SEC (12.0-15.0) H 08/22/16 06:40 INR 2.07 (0.83-1.16) H 08/22/16 06:40 - Physical Exam Constitutional: chronically ill appearing Eyes: icteric sclera Ears, Nose, Mouth, Throat: dry mucous membranes Cardiovascular: regular rate and rhythym Respiratory: No expiratory wheeze Gastrointestinal: No normoactive bowel sounds Genitourinary: no bladder fullness Skin: warm Musculoskeletal: No asymmetric calves Neurologic: No AAOx3 Psychiatric: No interacting appropriately Lymph, Heme, Immunologic: No no cervical LAD ICD10 Worksheet Patient Problems: Problems Problem Status Diagnosed Dehydration Acute Pulmonary embolism Acute Anemia Acute C. difficile diarrhea Acute 04/21/16 Superficial thrombophlebitis Acute
--- NOTE | 2016-08-22 15:59 | DX ---
Portable Chest 15:40 History: Check position of replaced PICC line changed portably without fluoroscopic guidance Comparison: Earlier in the day at 6:21 AM Findings: The right arm PICC line is in excellent position with tip at the cavoatrial junction. ET tu be, right jugular catheter and NG tube remain in place. A right pneumothorax is smaller. Lung consoli dation is slightly greater at the right lung base but otherwise little if at all changed. Impression: Excellent position of the PICC line.
[2016-08-22] MEDS ORDERED: ACETAMINOPHEN 650 MG SUPP PR PRN (16:53)
--- NOTE | 2016-08-22 19:58 | GCON ---
[f rep st] CONSULTATION INPATIENT INFECTIOUS DISEASE CONSULTATION REFERRING PHYSICIAN: Suzie De La Rosa MD REASON FOR CONSULTATION: Peritonitis status post small bowel perforation. HISTORY OF PRESENT ILLNESS: The patient is a 51-year-old female who was admitted to [facility] on 08/07/2016 through the emergency room. At that point, the patient had approximately 4+ m onths of diarrhea at home. She refused at that point to have medical workup, although she had been s uffering with this condition. She also had thrombophlebitis. Approximately 2 weeks prior to her adm ission, she became progressively short of breath. She denied any fevers or cough. She went to her [facility] physician's office on the day of admission and was found to be sufficiently hypoxic and r eferred to the emergency room. The patient was found to have a significantly large pulmonary embolus with hypotension and lactic acidosis. She required pressor support initially. It was suspected ear ly on that she had chronic inflammatory bowel disease undiagnosed secondary to the patient's refusal to have an endoscopy. The patient took some time early on in her stay to stabilize from the pulmonar y embolism standpoint. The plan was initially to have an endoscopy and colonoscopy after she stabili zed; however, she developed a right-sided pneumothorax which needed to have chest tube placement on 0 08/18/2016. The next number of days were spent stabilizing her from the 2nd pulmonary issue. Tiffanieescobar davisy, a CT scan of her abdomen and pelvis was performed on 08/21/2016 which revealed free air within t he abdomen with moderate ascites. Also showed underlying moderate diffuse colitis. The patient was taken to surgery on 08/22/2016 secondary to peritonitis due to perforated viscus. She returned to [facility] ICU intubated. She was found to have perforated transverse colon. She underwent an ascending and transverse colectomy with ileostomy placement. Liver was also biopsied secondary to an enlarged swol perla fatty liver. The patient was started on Zosyn 3.375 g IV q.8 hours as well as micafungin 100 mg IV daily. She remains intubated and non-communicative. We are consulted to help guide antibiotic us age in this complicated patient. PAST MEDICAL HISTORY: 1. History of colitis. 2. History of anal fissures. 3. Anemia unspecified. PAST SURGICAL HISTORY: Status post anal fissure repair, as well as a fistula repair secondary to unk nown colitis. ANTIBIOTICS: 1. Zosyn. 2. Micafungin. ALLERGIES: No known medical allergies. SOCIAL HISTORY: The patient denied any tobacco, alcohol or drug use on admission. 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 FAMILY HISTORY: The patient did give history of an uncle with Crohn's disease. REVIEW OF SYSTEMS: Other than that detailed above in history of present illness, comprehensive 10-sy stem review was negative per earlier notations. PHYSICAL EXAMINATION: VITAL SIGNS: Temperature maximum is 39.4, temperature current is 38.7. Heart rate is 107, respiratory rate is 36, blood pressure is 82/60. GENERAL: The patient is a well-forme d, overweight, middle-aged female, who is intubated and sedated. HEENT: Normocephalic for age, atra umatic. No scleral icterus. No oral lesion. No drainage from the nares. Eyes: Lids and conjuncti vae are within normal limits. Pupils are equal and round bilaterally. NECK: Supple. No meningismu s. LUNGS: Clear to auscultation bilaterally. Chest tubes in place on the right. HEART: Regular r hythm but tachycardic. No murmur, rub, or gallop noted. No significant peripheral edema. ABDOMEN: Postoperative ileostomy in place. Otherwise soft. Tenderness not assessable. No mass. SKIN: War m and dry to the touch. No rash or lesion noted. NEURO: Unable to assess secondary to sedated stat us. LABORATORY DATA: Patient has a CBC dated 08/22/2016 that shows a white blood cell count of 10.5, hem oglobin of 11.2, hematocrit of 33.0, platelet count of 200, differential shows 38% segmented neutroph ils, 38% band forms. Chemistries: The patient has a serum chemistry dated 08/23/2016 that shows sodium 140, potassium 4.5 , chloride 104, bicarbonate of 25, BUN of 3, creatinine 0.4. The patient has Clostridium difficile to ellis PCR negative on 08/08/2016, as well as 08/15/2016. Other stool testing includes Cryptosporidium antigen, Giardia antigen, and parasite exam which are all negative. MICROBIOLOGIC DATA: The patient has blood cultures dated 08/21/2016 which are pending. Patient has a pleural fluid aspirate dated 08/16/2016 which is growing a gram-negative sherry. The patient also has a peritoneal fluid swab dated 08/21/2016 which is growing a gram-negative sherry. ASSESSMENT: Peritonitis secondary to viscus rupture. Crohn's disease or ulcerative colitis is likel y underlying this presentation; however, this is now septic shock due to peritonitis as a secondary m ajor problem. Covered with Zosyn and micafungin, which is reasonable at present time. We will keri nue this dosing and follow the patient forward. Culture results have not matured. PLAN: 1. Continue both the Zosyn and micafungin. 2. Follow course in the ICU as well as temperature curve, white blood cell count and hemodynamic sta bility. /[id number]/MODL
[2016-08-22 21:45] LABS: ASSIST CONTROL YES; BASE EXCESS -6.7 mEq/L (-2.5-2.5); BICARBONATE 20 mEq/L (22-26); MEASURED OXYGEN SATURATION 92 % (92-95); PCO2 47 mmHg (34-38); PO2 80 mmHg (65-75); TCO2 21 mEq/L (23-27)
[2016-08-22 21:46] LABS: END TIDAL CO2 29; O2 CONCENTRATIION 50 % (0-100); P/F RATIO 160 RATIO; TOTAL RATE 36
[2016-08-22] MEDS ORDERED: NA BICARBONATE 50 MEQ/50 ML VIAL IV ONE (22:30)
[2016-08-22 23:44] LABS: BASE EXCESS -5.6 mEq/L (-2.5-2.5); BICARBONATE 20 mEq/L (22-26); MEASURED OXYGEN SATURATION 95 % (92-95); PCO2 41 mmHg (34-38); PO2 87 mmHg (65-75); TCO2 21 mEq/L (23-27)
[2016-08-22 23:45] LABS: ASSIST CONTROL YES
[2016-08-22 23:46] LABS: END TIDAL CO2 30; O2 CONCENTRATIION 50 % (0-100); P/F RATIO 174 RATIO; TOTAL RATE 38
[2016-08-23] MEDS: TPN W/ FAMOTIDINE 1 EA BAG IV SCH ×2 (00:11→20:45)
[2016-08-23] MEDS: NOREPINEPHRINE BITARTRATE 4 MG in D5W 500 ML IV SCH ×5 (00:14→22:18)
[2016-08-23] MEDS: INSULIN REGULAR, HUMAN 100 UNIT/1 ML VIAL STANDARD SC SCH ×4 (03:26→18:38)
[2016-08-23 04:53] LABS: BICARBONATE 21 mEq/L (22-26); MEASURED OXYGEN SATURATION 97 % (92-95); PCO2 44 mmHg (34-38); PO2 99 mmHg (65-75); TCO2 23 mEq/L (23-27)
[2016-08-23 04:54] LABS: ASSIST CONTROL YES; END TIDAL CO2 33; O2 CONCENTRATIION 50 % (0-100); P/F RATIO 198 RATIO; TOTAL RATE 32
[2016-08-23 05:03] LABS: % IMMATURE GRANULYOCYTES 1.5 % (0.0-1.1); ABSOLUTE IMMATURE GRANULOCYTES 0.21 10^3/uL (0.00-0.10); ABSOLUTE NRBC COUNT 0.04 10^3/uL (0-0.01); ADD DIFF? NO; ADD MORPH? NO; ADD SCAN? YES; FRAGMENT RBC FLAG 20 (0-99); HEMATOCRIT 29.3 % (38.0-47.0); HEMOGLOBIN 9.7 g/dL (12.6-16.3); LIPEMIA HEMOLYSIS FLAG 80 (0-99); MEAN CELL HEMOGLOBIN 31.7 pg (27.9-34.1); MEAN CELL HEMOGLOBIN CONCENTR. 33.1 g/dL (32.4-36.7); MEAN CELL VOLUME 95.8 fL (81.5-99.8); MEAN PLATELET VOLUME 11.3 fL (8.7-11.7); NRBC-AUTO% 0.3 % (0.0-0.2); PLATELET CLUMPS FLAG 0 (0-99); PLATELET COUNT 226 10^3/uL (150-400); RED BLOOD CELL COUNT 3.06 10^6/uL (4.18-5.33); RED CELL DISTRIBUTION WIDTH 18.8 % (11.5-15.2)
[2016-08-23 05:16] LABS: INR 2.29 (0.83-1.16); PROTIME(PATIENT) 25.4 SEC (12.0-15.0)
[2016-08-23 05:19] LABS: ANION GAP 12 mEq/L (8-16); CALCIUM 7.4 mg/dL (8.5-10.4); CARBON DIOXIDE 23 mEq/l (22-31); CHLORIDE 104 mEq/L (97-110); CREATININE 0.4 mg/dL (0.6-1.0); GLOMERULAR FILTRATION RATE > 60; GLUCOSE 194 mg/dL (70-100); MAGNESIUM 2.3 mg/dL (1.6-2.3); POTASSIUM 4.6 mEq/L (3.5-5.2); SODIUM 139 mEq/L (134-144)
[2016-08-23 05:23] LABS: ATYPICAL LYMPHOCYTE FLAG 120 (0-99); LEFT SHIFT FLG 300 (0-99)
[2016-08-23] MEDS: PIPERACILLIN/TAZO 3.375 GM/DEX 50 ML IV SCH (05:44)
[2016-08-23] MEDS: fentaNYL/NACL 100 ML IV SCH (05:47)
[2016-08-23 06:34] LABS: SCAN POSITIVE
[2016-08-23 06:39] LABS: PLATELET ESTIMATE ADEQUATE (ADEQ); POLYCHROMASIA 1+; TOXIC GRANULATION PRESENT; TOXIC VACUOLIZATION PRESENT
[2016-08-23] MEDS: CHLORHEXIDINE GLUCONATE 15 ML UDL PO SCH ×2 (07:59→22:20)
[2016-08-23] MEDS: VASOPRESSIN/DEXTROSE 250 ML IV SCH ×2 (08:48→20:45)
[2016-08-23] MEDS: POTASSIUM CL 20 MEQ TAB PO SCH (09:00)
[2016-08-23 09:53] LABS: PANCREATIC ELASTASE INTERPRETA See Comments (()); PANCREATIC ELASTASE RESULT < 50.0 (())
[2016-08-23] MEDS: MICAFUNGIN NA 100 MG in NS 100 ML IV SCH (10:00)
--- NOTE | 2016-08-23 11:38 | DX ---
Portable Chest 10:33 a.m. History: Check NG tube placement, intubated patient, extensive pulmonary embolic disease Comparison: Yesterday 15:40 Findings: The NG tube is present with tip in the abdomen not shown on this film. There is increased c onsolidation in the left midlung. Dense consolidation in the left lower lobe is stable. Left upper lo be infiltrate is stable. Right basilar consolidation and a right pneumothorax continued to improve. 2 right chest tubes, a right arm PICC line and ET tube remain in place. Impression: 1. NG tube with tip in the abdomen 2. Continued improvement in the right pneumothorax 3. Increased left mid lung consolidation, likely atelectasis.
--- NOTE | 2016-08-23 12:27 | SOAPPROG ---
SOAP Progress Note Assessment/Plan: Assessment: S/P lap for perforated colon and peritonitis in setting of chronic diarrhea and recent bleeding on anticoagulation. Path pending Liver lesion biopsied that pending Plan: Await path from bowel resection Continue supportive care Further rec regarding management of any underlying bowel disease as guided by path results 08/23/16 12:24 Subjective: CC bowel perforation intubated and sedated Objective: Vital Signs Temp Pulse Resp BP Pulse Ox 37.7 C 107 H 30 H 99/69 L 93 08/23/16 12:00 08/23/16 12:00 08/23/16 12:00 08/23/16 12:00 08/23/16 12:00 Microbiology 08/16/16 10:41 Gram Stain - Final Pleural Fluid - Aspirate 08/21/16 21:40 Gram Stain - Final Peritoneal Fluid - Swab Laboratory Results 08/23/16 04:45 08/23/16 04:45 08/22/16 08/23/16 08/24/16 05:59 05:59 05:59 Intake Total 4500 6921.7 Output Total 1835 1455 100 Balance 2665 5466.7 -100 PT 25.4 SEC (12.0-15.0) H 08/23/16 04:45 INR 2.29 (0.83-1.16) H 08/23/16 04:45 Physical Exam - Physical Exam General Appearance: other (sedated) Respiratory: decreased breath sounds, No wheezing Cardiac/Chest: regular rate, rhythm, No diastolic murmur Abdomen: soft, No normal bowel sounds ICD10 Worksheet Patient Problems: Problems Problem Status Diagnosed Dehydration Acute Pulmonary embolism Acute Anemia Acute C. difficile diarrhea Acute 04/21/16 Superficial thrombophlebitis Acute
--- NOTE | 2016-08-23 13:36 | PCMIDPN ---
Assessment/Plan: 1. Peritonitis after colonic perforation now postop day 2 status post exploratory laparotomy with right sided colectomy: Remains on 2 pressors, critically ill. Continue Zosyn but change dose to 3.375 g IV q.6 hours. Would not alter antibiotics otherwise, even in the setting of susceptible E coli in peritoneal fluid given unknown gram-negative sherry in pleural fluid culture. Continue Micafungin. 2. Secondarily infected pleural fluid: Gram-negative sherry cannot be identified. Isolate is being sent to [facility]. Continue Zosyn. Chest tube is draining less. 3. Probable inflammatory bowel disease: Colon biopsy results pending. Stool cultures have been negative including C difficile. Subjective: Remains critically ill on 2 pressors. Postop day 2 status post exploratory laparotomy with right-sided colectomy, ileostomy with mucous fistula. Remains febrile to 391. Objective: Micafungin 100 mg IV daily day 2 Zosyn 3.375 g IV q.8 hours day 2 T-max 39.1degrees Vital Signs Temp Pulse Resp BP Pulse Ox 37.7 C 107 H 30 H 99/69 L 93 08/23/16 12:00 08/23/16 12:00 08/23/16 12:00 08/23/16 12:00 08/23/16 12:00 Microbiology 08/16/16 10:41 Gram Stain - Final Pleural Fluid - Aspirate 08/21/16 21:40 Gram Stain - Final Peritoneal Fluid - Swab Laboratory Results 08/23/16 04:45 08/23/16 04:45 08/22/16 08/23/16 08/24/16 05:59 05:59 05:59 Intake Total 4500 6921.7 Output Total 1835 1455 100 Balance 2665 5466.7 -100 August 21 peritoneal fluid 3+ pansensitive E coli August 21 blood culture negative August 16 pleural fluid 2+ PMNs 2+ gram-negative sherry (isolate cannot be identified, being sent to [facility]) - Physical Exam General Appearance: other (Intubated, sedated. Jaundiced.) EENT: scleral icterus, ET Tube Respiratory: other (Single chest tube right lung.) Cardiac/Chest: tachycardia Abdomen: other (No bowel sounds. Ostomy with a small amount of blood in bag. Small bag the right lower quadrant with bilious fluid.) Skin: other (Right upper extremity PICC line looks fine.), No rash ICD10 Worksheet Patient Problems: Problems Problem Status Diagnosed Dehydration Acute Pulmonary embolism Acute Anemia Acute C. difficile diarrhea Acute 04/21/16 Superficial thrombophlebitis Acute
--- NOTE | 2016-08-23 13:38 | PDINTPN ---
[employer] Stewardess Progress Note Assessment/Plan: Assessment/plan: * Peritonitis s/p bowel perforation, s/p hemicolectomy and liver biopsy for suspicious lesion. Remains on pressors with increased wbc today. Currently on Zoysn and Micafungin with ID guidance. FU cx's. Prelim findings suggestive of ulcerative colitis. OK to start TF per surgical team. * Aspiration- she likely aspirated at time of PO contrast prior to OR. Todays CXR shows diffuse bilateral infiltrates that are worse/new. Abx should be adequate as ordered. * Respiratory failure with hypoxia- 2/2 above plus PE and PTX. Vent day #2. Relatively stable but FiO2 still 60%. Titrate as tolerated today. Not ready for weaning/extubation yet, but at least trial of weaning when FiO2 <50% * PE s/p TPA. IVC filter placed and anticoagulation held. Resume heparin drip today as discussed with surgical team. * PTX presumably from pulmonary infarct. Still with CT leak. 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 Await path report. Continue with TPN. * Anemia - transfuse Hgb <7.0 * Critical care time 45 minutes Objective: Vital Signs Temp Pulse Resp BP Pulse Ox 37.7 C 107 H 30 H 99/69 L 93 08/23/16 12:00 08/23/16 12:00 08/23/16 12:00 08/23/16 12:00 08/23/16 12:00 Microbiology 08/16/16 10:41 Gram Stain - Final Pleural Fluid - Aspirate 08/21/16 21:40 Gram Stain - Final Peritoneal Fluid - Swab Laboratory Results 08/23/16 04:45 08/23/16 04:45 08/22/16 08/23/16 08/24/16 05:59 05:59 05:59 Intake Total 4500 6921.7 Output Total 1835 1455 100 Balance 2665 5466.7 -100 PT 25.4 SEC (12.0-15.0) H 08/23/16 04:45 INR 2.29 (0.83-1.16) H 08/23/16 04:45 Physical Exam - Physical Exam General Appearance: mild distress, other (sedated on vent) EENT: PERRL/EOMI Neck: supple Respiratory: rhonchi (bilateral), No respiratory distress, No wheezing, No retractions Cardiac/Chest: normal peripheral pulses, regular rate, rhythm, No edema Abdomen: soft, No normal bowel sounds, No guarding Skin: normal color, warm/dry, No rash Lymphatic: no adenopathy Extremities: non-tender, No pedal edema Neuro/Psych: other (sedated on vent) ICD10 Worksheet Patient Problems: Problems Problem Status Diagnosed Dehydration Acute Pulmonary embolism Acute Anemia Acute C. difficile diarrhea Acute 04/21/16 Superficial thrombophlebitis Acute
[2016-08-23] MEDS ORDERED: PIPERACILLIN/TAZO 3.375 GM/DEX 50 ML IV SCH (14:00)
--- NOTE | 2016-08-23 14:00 | HOSPPROG ---
Hospitalist Progress Note Assessment/Plan: 51-year-old female who has had problems with diarrhea and weight loss for 6 months presenting with severe pulmonary embolism status post tPA and then developed hydro pneumothorax most likely due to pulmonary infarction Acute transverse colon perforation overnight- patient taken for emergent IVC filter and then intraoperative repair with Dr. Torres Patient with partial colectomy and ileostomy- colonic biopsy and wedge liver biopsy pending - continue IV pain medication - postop care per surgery acute ptx/pleural effusion s/p chest tubes - suspect d/t infarcted lung from PE - CXR yesterday (personally reviewed and interpreted) free air under right diaphragm oxygen saturations 96% on 50% Fio2 on ventilator - continue chest tubes for surgery- decreased section today acute PE status post tPA- certainly chronic component to the VTE - IVC filter placed - heparin drip on hold until cleared by surgery acute hypoxic respiratory failure - worsened again post-ptx- as above pulm htn anasarca - suspect secondary to chronic diarrhea - continue intermittent albumin for hypotension severe protein calorie malnutrition - dietary following, previous calorie count in progress- pre albumin is very low - continue TPN - NPO postoperative elevated INR- presumed due to malnutrition- given small doses of vitamin K upon initial presentation to reverse- INR 2.07 this morning chronic diarrhea- family history of Crohn's- visual inspection by surgery overnight highly suspicious for ulcerative colitis - biopsies pending - gastroenterology following - can initiate treatment when diagnosis made anemia- status post transfusion x 3 units packed red blood cells since admission - monitor daily history of hemorrhoid/anal fissure FCFT prophylaxis on hold postop # diet NPO with TPN # disposition greater than 2 midnights as patient is critically ill requiring ventilatory support I have discussed the case with Dr. Márquez- will keep the patient ventilated today as she recovers from acute perforation yesterday Subjective: case discussed w kendy sandoval. tele: sinus (interp by me) Objective: Vital Signs Temp Pulse Resp BP Pulse Ox 37.7 C 102 H 30 H 90/62 L 96 08/23/16 12:00 08/23/16 13:00 08/23/16 13:00 08/23/16 13:00 08/23/16 13:00 Microbiology 08/21/16 21:40 Gram Stain - Final Peritoneal Fluid - Swab 08/16/16 10:41 Gram Stain - Final Pleural Fluid - Aspirate Laboratory Results 08/23/16 04:45 08/23/16 04:45 08/22/16 08/23/16 08/24/16 05:59 05:59 05:59 Intake Total 4500 6921.7 Output Total 1835 1455 250 Balance 2665 5466.7 -250 PT 25.4 SEC (12.0-15.0) H 08/23/16 04:45 INR 2.29 (0.83-1.16) H 08/23/16 04:45 - Physical Exam Constitutional: chronically ill appearing, other (intubated, sedated) Eyes: PERRL, anicteric sclera Ears, Nose, Mouth, Throat: moist mucous membranes, other (ETT) Cardiovascular: no murmur, rub, or gallop, tachycardia Respiratory: other (rhoncorous anterolat) Gastrointestinal: distension (abesnt bowel sounds), No normoactive bowel sounds Genitourinary: mendiola in urethra Skin: warm Musculoskeletal: No full muscle strength, No no muscle tenderness Neurologic: weakness, No AAOx3 ICD10 Worksheet Patient Problems: Problems Problem Status Diagnosed Dehydration Acute Pulmonary embolism Acute Anemia Acute C. difficile diarrhea Acute 04/21/16 Superficial thrombophlebitis Acute
[2016-08-23] MEDS ORDERED: DIPHENOXYLATE/ATROPINE LOMOTIL 1 TAB TUBE PRN (15:42)
[2016-08-23] MEDS ORDERED: ONDANSETRON DISINTEGRATING 4 MG TAB TUBE PRN (15:43)
[2016-08-23] MEDS: NS 1,000 ML IV SCH (16:00)
--- NOTE | 2016-08-23 16:13 | SOAPPROG ---
SOAP Progress Note Assessment/Plan: Assessment: Critically ill post colectomy, ventilator dependent/ hypotensive on vasopressin and norepinephrine S/P Right extended colectomy for perforation 08/21 Ileostomy functional Pathology pending PTx right secondary to infarct following PE Anticoagulated for PE/DVT INR 2 Anasarca Right inferior chest tube air leak with positive pressure Chest tubes in place may require stitch in lower CT site Incision intact Ostomy productive of stool Mucous fistula edematous sloughing severe protein calorie malnutrition Ventilated post operatively and RRR CTA left 3+ pitting edema upper and lower extremities Plan: Anticoagulate as required Continue 2 right chest tubes 24-28 Fr for management of ptx Wean vent as able Sepsis by definition - may require completion colectomy Check on path for management of gi status Nutritional support start trickle feeds 08/17/16 08:55 08/19/16 14:33 08/23/16 15:58 Objective: Vital Signs Temp Pulse Resp BP Pulse Ox 37.7 C 105 H 31 H 92/65 L 93 08/23/16 12:00 08/23/16 15:00 08/23/16 15:00 08/23/16 15:00 08/23/16 15:00 Microbiology 08/21/16 21:40 Gram Stain - Final Peritoneal Fluid - Swab 08/16/16 10:41 Gram Stain - Final Pleural Fluid - Aspirate Laboratory Results 08/23/16 04:45 08/23/16 04:45 08/22/16 08/23/16 08/24/16 05:59 05:59 05:59 Intake Total 4500 6921.7 Output Total 1835 1455 250 Balance 2665 5466.7 -250 PT 25.4 SEC (12.0-15.0) H 08/23/16 04:45 INR 2.29 (0.83-1.16) H 08/23/16 04:45 ICD10 Worksheet Patient Problems: Problems Problem Status Diagnosed Dehydration Acute Pulmonary embolism Acute Anemia Acute C. difficile diarrhea Acute 04/21/16 Superficial thrombophlebitis Acute
[2016-08-23] MEDS: PIPERACILLIN SODIUM/TAZOBACTAM 3.375 GM in D5W 50 ML IV SCH ×2 (17:34→23:57)
[2016-08-23] MEDS: PROPOFOL/EMULSION 100 ML IV SCH (17:35)
--- NOTE | 2016-08-23 17:44 | IR ---
Imaging Guided Peripherally Inserted Central Catheter History: Central line access for critically ill patient. Prophylactic Antibiotic: Cefazolin was not ordered and administered for antimicrobial prophylaxis be cause it was not medically necessary for this procedure. VTE Prophylaxis: There is not an order for VTE prophylaxis to be given within 24 hours after procedu re end time because it was not medically necessary for this procedure. Crosscutting Measure: Patient's current list of medications including all known prescriptions, over- the-counters, herbals, and vitamin/mineral/dietary supplements are reviewed. Medications' name, dosa ge, frequency, and route of administration are confirmed. Patient is a non-smoker. Technique: This procedure is performed at patient's bedside. No fluoroscopy was utilized. Following i nformed consent, the right arm was prepped and draped in sterile fashion. 1% Xylocaine was used for l ocal anesthetic. All elements of maximal sterile barrier technique including cap, mask, sterile danisha n, sterile gloves, large sterile sheet, hand hygiene, and 2% chlorhexidine for cutaneous antisepsis, followed. Ultrasound evaluation of potential access site was performed. After successfully identifying a patent vessel, ultrasound guidance was used to puncture the vein. A permanent recording was created for the patient's record. Ultrasound transducer was placed in sterile sleeve and used for real-time imaging guidance over steri le gel to enter the basilic vein. 0.018 measuring wire was passed centrally. A skin cassidy with scalpel blade was followed by removing the access needle. A 6 [place]an peel-away sheath was followed by a 5.5 [place] double-lumen central catheter, trimmed to 42 cm length. The tip of the catheter was positione d centrally and the guidewire removed. The hub of the catheter was fixed to the skin using a sterile StatLock adhesive device, and a sterile dressing was applied. The catheter was irrigated. Fluoroscopy: 0 min Dose: 0 mGy Exposures: 0 images Impression: 5.5 [place] triple lumen peripherally inserted central catheter. Chest x-ray to follow to evaluate tip placement.
[2016-08-24] MEDS: INSULIN REGULAR, HUMAN 100 UNIT/1 ML VIAL STANDARD SC SCH ×4 (00:41→19:26)
[2016-08-24] MEDS: NOREPINEPHRINE BITARTRATE 4 MG in D5W 500 ML IV SCH ×2 (02:39→07:08)
[2016-08-24] MEDS: NS 1,000 ML IV SCH (05:46)
[2016-08-24] MEDS: PIPERACILLIN SODIUM/TAZOBACTAM 3.375 GM in D5W 50 ML IV SCH ×4 (05:46→23:59)
[2016-08-24] MEDS: PROPOFOL/EMULSION 100 ML IV SCH ×2 (06:31→17:18)
[2016-08-24 08:33] LABS: BASE EXCESS -3.2 mEq/L (-2.5-2.5); BICARBONATE 22 mEq/L (22-26); MEASURED OXYGEN SATURATION 99 % (92-95); TCO2 24 mEq/L (23-27)
[2016-08-24 08:34] LABS: ASSIST CONTROL YES; END TIDAL CO2 39; TOTAL RATE 30
[2016-08-24 08:35] LABS: O2 CONCENTRATIION 60 % (0-100)
[2016-08-24 08:37] LABS: P/F RATIO 280 RATIO; PCO2 48 mmHg (34-38); PO2 168 mmHg (65-75)
[2016-08-24 08:39] LABS: INR 2.08 (0.83-1.16); PROTIME(PATIENT) 23.5 SEC (12.0-15.0)
[2016-08-24 08:46] LABS: ABSOLUTE NRBC COUNT 0.17 10^3/uL (0-0.01); ADD DIFF? YES; ADD MORPH? NO; ADD SCAN? NO; ATYPICAL LYMPHOCYTE FLAG 70 (0-99); FRAGMENT RBC FLAG 0 (0-99); HEMATOCRIT 27.8 % (38.0-47.0); LEFT SHIFT FLG 50 (0-99); LIPEMIA HEMOLYSIS FLAG 80 (0-99); MEAN CELL HEMOGLOBIN 31.7 pg (27.9-34.1); MEAN CELL HEMOGLOBIN CONCENTR. 32.4 g/dL (32.4-36.7); MEAN CELL VOLUME 97.9 fL (81.5-99.8); MEAN PLATELET VOLUME 11.5 fL (8.7-11.7); PLATELET CLUMPS FLAG 30 (0-99); PLATELET COUNT 219 10^3/uL (150-400); RED BLOOD CELL COUNT 2.84 10^6/uL (4.18-5.33); RED CELL DISTRIBUTION WIDTH 17.7 % (11.5-15.2)
[2016-08-24 09:01] LABS: ALANINE AMINOTRANSFERASE 38 IU/L (9-52); ALBUMIN 2.1 g/dL (3.5-5.0); ALKALINE PHOSPHATASE 33 IU/L (38-126); ANION GAP 7 mEq/L (8-16); ASPARTATE AMINOTRANSFERASE 52 IU/L (14-46); BILIRUBIN,TOTAL 12.3 mg/dL (0.1-1.4); CALCIUM 7.1 mg/dL (8.5-10.4); CARBON DIOXIDE 25 mEq/l (22-31); CHLORIDE 100 mEq/L (97-110); CREATININE 0.6 mg/dL (0.6-1.0); GLOMERULAR FILTRATION RATE > 60; GLUCOSE 111 mg/dL (70-100); MAGNESIUM 2.5 mg/dL (1.6-2.3); POTASSIUM 5.4 mEq/L (3.5-5.2); SODIUM 132 mEq/L (134-144)
[2016-08-24 09:24] LABS: BILIRUBIN-CONJUGATED 10.7 mg/dL (0.0-0.5); BILIRUBIN-UNCONJUGATED 1.6 mg/dL (0.0-1.1)
[2016-08-24] MEDS: MICAFUNGIN NA 100 MG in NS 100 ML IV SCH (09:31)
[2016-08-24] MEDS ORDERED: HEPARIN/DEXTROSE 500 ML IV SCH (10:02)
[2016-08-24] MEDS ORDERED: HEPARIN 10,000 UNIT/10 ML MDV IVP PRN (10:02)
--- NOTE | 2016-08-24 10:18 | SOAPPROG ---
SOAP Progress Note Assessment/Plan: Assessment/Plan - 51yo F c DVT/PE fully anticoagulated c large R hemo/ptx s/p CT x2, s/p ex-lap , R hemicolectomy c ileostomy and MF for focal R colon perforation - Sedated, appears comfortable, is not following commands but is overbreathing vent and GUTIERREZ when sedation weaned - giulia whiteout on CXR yesterday, R sided CTs remain to suction with intermittent air leak around tube. Buttressed with xeroform dressing. Cont to suction given persistent ptx on CXR and PPV. Attempted to wean to 40% FiO2 this AM which was not tolerated. Had aspiration event with PO contrast prior to OR. - Hypotensive on pressors, currently levo at 14mcg and vaso. Aiming for MAP of 60-65. Wean pressors as tolerated - Abdomen is distended, ileostomy with bilious output, MF with blood tinged stool. Incision with some serous drainage. Difficult to examine but would like final path before making decision for completion colectomy as she may not tolerate another large operation at this time. - UOP has been 20-30/HR, dark appearing. Cr stable at 0.6 - ID: Cx growing E coli, pansensitive. On Zosyn, era. ID following - Dispo: remains critically ill, still unclear whether or not needs completion colectomy, but will cont to monitor for now. R CT leak appears controlled with xeroform. Await path. Wean pressors and FiO2 as tolerates. 08/16/16 11:01 08/24/16 10:14 08/24/16 10:18 08/24/16 10:19 Subjective: Intubated, sedated. GUTIERREZ when sedation weaned Objective: Vital Signs Temp Pulse Resp BP Pulse Ox 37.6 C 103 H 30 H 82/64 L 96 08/24/16 09:00 08/24/16 09:00 08/24/16 09:00 08/24/16 09:00 08/24/16 09:00 Microbiology 08/21/16 21:40 Gram Stain - Final Peritoneal Fluid - Swab 08/16/16 10:41 Gram Stain - Final Pleural Fluid - Aspirate Laboratory Results 08/24/16 08:15 08/24/16 08:15 08/23/16 08/24/16 08/25/16 05:59 05:59 05:59 Intake Total 6921.7 7062 Output Total 1455 1100 Balance 5466.7 5962 PT 23.5 SEC (12.0-15.0) H 08/24/16 08:15 INR 2.08 (0.83-1.16) H 08/24/16 08:15 ICD10 Worksheet Patient Problems: Problems Problem Status Diagnosed Dehydration Acute Pulmonary embolism Acute Anemia Acute C. difficile diarrhea Acute 04/21/16 Superficial thrombophlebitis Acute
[2016-08-24] MEDS ORDERED: HEPARIN 10,000 UNIT/10 ML MDV IVP ONE (10:30)
--- NOTE | 2016-08-24 11:19 | PCMIDPN ---
Assessment/Plan: 1. Peritonitis after colonic perforation now postop day 3 status post exploratory laparotomy with right sided colectomy: Remains on 2 pressors, critically ill. Continue Zosyn as is. Would not alter antibiotics otherwise, even in the setting of susceptible E coli in peritoneal fluid given unknown gram-negative sherry in pleural fluid culture. Continue Micafungin. 2. Aspiration pneumonia/infected hydropneumothorax: By report patient had an aspiration event with oral contrast prior to the operating room. Chest tube with audible air leak. Gram-negative sherry in pleural fluid was sent to [facility]. Continue Zosyn. 3. Probable inflammatory bowel disease: Colon biopsy results pending. Stool cultures have been negative including C difficile. Subjective: About the same today, although bilirubin is increased. Remains on 2 pressors. Has an audible air leak around chest tube insertion site. Objective: Micafungin 100 mg IV daily day 3 Zosyn 3.375 g IV q.6 hours day 3 T-max 39.1degrees yesterday morning Vital Signs Temp Pulse Resp BP Pulse Ox 37.6 C 103 H 30 H 82/64 L 96 08/24/16 09:00 08/24/16 09:00 08/24/16 09:00 08/24/16 09:00 08/24/16 09:00 Microbiology 08/21/16 21:40 Gram Stain - Final Peritoneal Fluid - Swab 08/16/16 10:41 Gram Stain - Final Pleural Fluid - Aspirate Laboratory Results 08/24/16 08:15 08/24/16 08:15 08/23/16 08/24/16 08/25/16 05:59 05:59 05:59 Intake Total 6921.7 7062 Output Total 1455 1100 Balance 5466.7 5962 Blood cultures negative August 21 Peritoneal fluid with susceptible E coli Pleural fluid with 2+ Gram-negative sherry, sent to [facility] for identification - Physical Exam General Appearance: other (Intubated, sedated. Temporal wasting bilaterally. Appears older than stated age. Jaundiced. Anasarca.) EENT: scleral icterus, No thrush Respiratory: coarse breath sounds, other (Chest tube on the right beneath right breast. Audible air leak. Fluid is yellow tinge.) Cardiac/Chest: tachycardia Abdomen: distended, other (Incision looks fine with no erythema or drainage that I can see. Mucous fistula bag empty, ileostomy with bilious drainage.) Skin: jaundice, No rash ICD10 Worksheet Patient Problems: Problems Problem Status Diagnosed Dehydration Acute Pulmonary embolism Acute Anemia Acute C. difficile diarrhea Acute 04/21/16 Superficial thrombophlebitis Acute
--- NOTE | 2016-08-24 12:55 | SOAPPROG ---
SOAP Progress Note Assessment/Plan: Assessment/Plan: 1. Chronic diarrhea. Colitis, with perforation, found. Etiology unclear ( ischemic vs. IBD, etc.). Low -ostomy output. - pathology pending 2. Elevated TB. Suspect jaundice of sepsis/multiorgan failure only. Normal on adm'x, and although gallstones, normal ducts and essentially normal LFTs otherwise. - recheck A.M. 08/24/16 12:52 Subjective: cc: PE, perforation, with chronic diarrhea prior. Intubated, sedated, can not open subjective history. Objective: Vital Signs Temp Pulse Resp BP Pulse Ox 37.2 C 106 H 35 H 88/60 L 93 08/24/16 12:00 08/24/16 12:00 08/24/16 12:00 08/24/16 12:00 08/24/16 12:00 Microbiology 08/16/16 10:41 Gram Stain - Final Pleural Fluid - Aspirate 08/21/16 21:40 Gram Stain - Final Peritoneal Fluid - Swab Laboratory Results 08/24/16 08:15 08/24/16 08:15 08/23/16 08/24/16 08/25/16 05:59 05:59 05:59 Intake Total 6921.7 7062 Output Total 1455 1100 Balance 5466.7 5962 PT 23.5 SEC (12.0-15.0) H 08/24/16 08:15 INR 2.08 (0.83-1.16) H 08/24/16 08:15 Physical Exam - Physical Exam General Appearance: WD/WN, unresponsive EENT: PERRL/EOMI, normal ENT inspection, pharynx normal, TMs normal Neck: non-tender, full range of motion, supple, normal inspection Respiratory: chest non-tender, lungs clear, normal breath sounds Cardiac/Chest: normal peripheral pulses, regular rate, rhythm Peripheral Pulses: 2+: carotid (R), carotid (L), femoral (R), femoral (L), dorsalis-pedis (R), dorsalis-pedis (L) Abdomen: soft (-ostomies in place) Pelvic Exam: deferred Rectal: deferred Back: Normal inspection Skin: normal color, warm/dry Lymphatic: no adenopathy Extremities: normal range of motion, non-tender, normal inspection, normal capillary refill Neuro/Psych: no motor/sensory deficits, alert, normal mood/affect, oriented x 3 ICD10 Worksheet Patient Problems: Problems Problem Status Diagnosed Dehydration Acute Pulmonary embolism Acute Anemia Acute C. difficile diarrhea Acute 04/21/16 Superficial thrombophlebitis Acute
--- NOTE | 2016-08-24 13:16 | PDINTPN ---
Supervisor Model Making Progress Note Assessment/Plan: Assessment/plan: 51 F with PMH of "colitis," anal fissures, GI fistulas, LGIB, "parasitic GI infections," and FH Crohns admitted 08/07/16 with SOB and hypoxia and found to have large PE. Because of evidence of RV strain she was given TPA followed by UFH which she tolerated well until about 08/20 when she developed LGIB. On 08/21 she had a sudden change in status with increased HR, decreased BP, increased lactate, and increasing hypoxia. A CXR/abdominal CT were consistent with viscous perforation and she was taken emergently to the OR for hemicolectomy. UFH held and IVC filter placed. Just prior to her CT she had a witnessed aspiration event, and returned from the OR on a vent. Hospital course was also complicated by a spontaneous PTX on 08/16, thought to be 2/2 a pulmonary infarct. She has required pressors since the OR as well. * Peritonitis s/p bowel perforation, hemicolectomy and liver biopsy for suspicious lesion. Remains on pressors with increased wbc today. Currently on Zoysn and Micafungin with ID guidance. Fluid cx with E. Coli. Prelim findings suggestive of ulcerative colitis. OK to start TF per surgical team, but may need to rely on TPN for now since she is having difficulty with residuals. * Hypotension 2/2 above/septic shock. Continue with levophed/vasopressin. Titrate to MAP 65. * Aspiration- she likely aspirated at time of PO contrast prior to OR. Should be adequately covered on current Abx. * Respiratory failure with hypoxia- 2/2 above plus PE and PTX. Vent day #3. Relatively stable but FiO2 still 60%. Increase peep to lower fio2. * PE s/p TPA. IVC filter placed and anticoagulation held. Resume heparin drip. She had difficulty achieving a therapeutic level previously- if this remains a problem may try an alternate such as argatroban. Once stable will need to have IVC filter removed * PTX presumably from pulmonary infarct. Still with CT leak. 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 Await path report. Continue with TPN. * LGIB 2/2 presumed ischemic colitis. Cdiff ruled out and currently stable * Anemia - transfuse Hgb <7.0 * Critical care time 45 minutes 08/24/16 13:06 Objective: Vital Signs Temp Pulse Resp BP Pulse Ox 37.2 C 106 H 35 H 88/60 L 93 08/24/16 12:00 08/24/16 12:00 08/24/16 12:00 08/24/16 12:00 08/24/16 12:00 Microbiology 08/16/16 10:41 Gram Stain - Final Pleural Fluid - Aspirate 08/21/16 21:40 Gram Stain - Final Peritoneal Fluid - Swab Laboratory Results 08/24/16 08:15 08/24/16 08:15 08/23/16 08/24/16 08/25/16 05:59 05:59 05:59 Intake Total 6921.7 7062 Output Total 1455 1100 Balance 5466.7 5962 PT 23.5 SEC (12.0-15.0) H 08/24/16 08:15 INR 2.08 (0.83-1.16) H 08/24/16 08:15 Physical Exam - Physical Exam General Appearance: no apparent distress, other (sedated on vent) EENT: PERRL/EOMI Neck: full range of motion, supple Respiratory: rales (bilateral. Improved from 08/23), No wheezing, No prolonged expiration, No retractions Cardiac/Chest: normal peripheral pulses, regular rate, rhythm Skin: normal color, warm/dry, No rash Lymphatic: no adenopathy Extremities: normal range of motion, non-tender, No pedal edema ICD10 Worksheet Patient Problems: Problems Problem Status Diagnosed Dehydration Acute Pulmonary embolism Acute Anemia Acute C. difficile diarrhea Acute 04/21/16 Superficial thrombophlebitis Acute
[2016-08-24 13:18] LABS: PLATELET ESTIMATE ADEQUATE (ADEQ); POLYCHROMASIA 1+; TOXIC VACUOLIZATION PRESENT
[2016-08-24] MEDS: CHLORHEXIDINE GLUCONATE 15 ML UDL PO SCH ×2 (13:48→21:03)
--- NOTE | 2016-08-24 14:38 | HOSPPROG ---
Hospitalist Progress Note Assessment/Plan: 51-year-old female who has had problems with diarrhea and weight loss for 6 months presenting with severe pulmonary embolism status post tPA and then developed hydro pneumothorax most likely due to pulmonary infarction low uop: on pressors check cvp may need bolus Acute transverse colon perforation - patient taken for emergent IVC filter and then intraoperative repair with Dr. Torres Patient with partial colectomy and ileostomy- colonic biopsy and wedge liver biopsy pending - continue IV pain medication - postop care per surgery acute ptx/pleural effusion s/p chest tubes - suspect d/t infarcted lung from PE - CXR (personally reviewed and interpreted) L chest tubes and airspace disease oxygen saturations 96% on 50% Fio2 on ventilator - continue chest tubes for surgery- decreased section today acute PE status post tPA- certainly chronic component to the VTE - IVC filter placed - heparin drip on hold until cleared by surgery- will wait til 08/25 given bloody stool acute hypoxic respiratory failure - worsened again post-ptx- as above pulm htn anasarca - suspect secondary to chronic diarrhea - continue intermittent albumin for hypotension severe protein calorie malnutrition - dietary following, previous calorie count in progress- pre albumin is very low - continue TPN - NPO postoperative elevated INR- presumed due to malnutrition- given small doses of vitamin K upon initial presentation to reverse- INR 2.07 this morning chronic diarrhea- family history of Crohn's- visual inspection by surgery overnight highly suspicious for ulcerative colitis - biopsies pending - gastroenterology following - can initiate treatment when diagnosis made anemia- status post transfusion x 3 units packed red blood cells since admission - monitor daily history of hemorrhoid/anal fissure FCFT prophylaxis on hold postop # diet NPO with TPN # disposition greater than 2 midnights as patient is critically ill requiring ventilatory support I have discussed the case with Dr. Márquez- will keep the patient ventilated today as she recovers from acute perforation yesterday Subjective: episode of bloody stool (from rectum) this AM. case d/w dr márquez. AM cxr essentially unchanged (interp by me) Objective: Vital Signs Temp Pulse Resp BP Pulse Ox 37.2 C 104 H 35 H 98/66 L 93 08/24/16 12:00 08/24/16 13:00 08/24/16 13:00 08/24/16 13:00 08/24/16 13:00 Microbiology 08/16/16 10:41 Gram Stain - Final Pleural Fluid - Aspirate 08/21/16 21:40 Gram Stain - Final Peritoneal Fluid - Swab Laboratory Results 08/24/16 08:15 08/24/16 08:15 08/23/16 08/24/16 08/25/16 05:59 05:59 05:59 Intake Total 6921.7 7062 Output Total 1455 1100 Balance 5466.7 5962 PT 23.5 SEC (12.0-15.0) H 08/24/16 08:15 INR 2.08 (0.83-1.16) H 08/24/16 08:15 - Physical Exam Constitutional: other (intubatedm sedated) Eyes: PERRL, No anicteric sclera Ears, Nose, Mouth, Throat: moist mucous membranes, hearing normal Cardiovascular: regular rate and rhythym, no murmur, rub, or gallop, tachycardia Respiratory: other (rhoncorous breath sounds) Gastrointestinal: distension, other (absent bowel sounds. black liquid stool in ileostomy), No normoactive bowel sounds Genitourinary: mendiola in urethra Skin: warm, normal color Musculoskeletal: No full muscle strength Neurologic: weakness, No AAOx3 Psychiatric: interacting appropriately ICD10 Worksheet Patient Problems: Problems Problem Status Diagnosed Dehydration Acute Pulmonary embolism Acute Anemia Acute C. difficile diarrhea Acute 04/21/16 Superficial thrombophlebitis Acute
[2016-08-24] MEDS: VASOPRESSIN/DEXTROSE 250 ML IV SCH ×2 (15:55→22:36)
[2016-08-24] MEDS: ACETAMINOPHEN 325 MG TAB TUBE PRN ×2 (15:55→23:59)
[2016-08-24] MEDS: fentaNYL/NACL 100 ML IV SCH (17:19)
--- NOTE | 2016-08-24 17:28 | DX ---
Portable Chest, Single View August 24, 2016 History: NG tube placement. Comparison: August 24, 2016 at 1246 hours. Findings: NG tube is seen in place with its tip in the body of the stomach. ET tube is in good positi on and stable. Bilateral PIC lines are in good position in the superior vena cava. Two chest tubes ar e in stable position on the right. No evidence for pneumothorax. Opacification and atelectasis is see n in both lobes with stable aeration. Heart size is enlarged and stable. Impression: 1. Life support tubes and lines, as above. NG tube is in good position. 2. Stable aeration with atelectasis and infiltrate bilateral. Stable cardiomegaly.
[2016-08-24] MEDS: NOREPINEPHRINE BITARTRATE 16 MG in NS 250 ML IV SCH (21:03)
[2016-08-24] MEDS: TPN W/ FAMOTIDINE 1 EA BAG IV SCH (21:11)
[2016-08-24] MEDS ORDERED: PETROLAT,WHT/MIN OIL/SOD CHL 3.5 GM OPHT.OINT EACHEYE PRN (21:55)
[2016-08-24] MEDS ORDERED: ORAL BALANCE GEL TUBE PO PRN (21:56)
[2016-08-24 22:25] LABS: BASE EXCESS -4.6 mEq/L (-2.5-2.5); BICARBONATE 22 mEq/L (22-26); MEASURED OXYGEN SATURATION 96 % (92-95); PCO2 48 mmHg (34-38); PO2 95 mmHg (65-75); TCO2 23 mEq/L (23-27)
[2016-08-24 22:39] LABS: ANION GAP 8 mEq/L (8-16); CALCIUM 7.1 mg/dL (8.5-10.4); CARBON DIOXIDE 24 mEq/l (22-31); CHLORIDE 98 mEq/L (97-110); CREATININE 1.1 mg/dL (0.6-1.0); GLOMERULAR FILTRATION RATE 52; GLUCOSE 103 mg/dL (70-100); LACTATE DEHYDROGENASE 837 IU/L (313-618); SODIUM 130 mEq/L (134-144); SPECIMEN ICTERUS 6
[2016-08-24 22:41] LABS: MIXED VENOUS O2 SATURATION 93 % (65-75)
[2016-08-25] MEDS: INSULIN REGULAR, HUMAN 100 UNIT/1 ML VIAL STANDARD SC SCH ×5 (00:10→23:58)
[2016-08-25] MEDS ORDERED: DOBUTamine/DEXTROSE 250 ML IV SCH (01:00)
[2016-08-25 01:20] LABS: BASE EXCESS -4.3 mEq/L (-2.5-2.5); BICARBONATE 20 mEq/L (22-26); MEASURED OXYGEN SATURATION 93 % (92-95); PCO2 36 mmHg (34-38); PO2 73 mmHg (65-75); SIMV YES; TCO2 21 mEq/L (23-27)
[2016-08-25 01:21] LABS: O2 CONCENTRATIION 60 % (0-100); P/F RATIO 122 RATIO; PATIENT RATE 32; PIP 30
[2016-08-25] MEDS: PROPOFOL/EMULSION 100 ML IV SCH (02:24)
[2016-08-25] MEDS: FUROSEMIDE 20 MG/2 ML VIAL IVP SCH ×3 (02:24→12:57)
[2016-08-25 05:27] LABS: BICARBONATE 21 mEq/L (22-26); MEASURED OXYGEN SATURATION 94 % (92-95); O2 CONCENTRATIION 60 % (0-100); P/F RATIO 133 RATIO; PATIENT RATE 30; PCO2 39 mmHg (34-38); PO2 80 mmHg (65-75); SIMV YES; TCO2 22 mEq/L (23-27)
[2016-08-25 05:28] LABS: PIP 30
[2016-08-25 05:34] LABS: ABSOLUTE NRBC COUNT 0.11 10^3/uL (0-0.01); ADD DIFF? YES; ADD MORPH? NO; ADD SCAN? NO; ATYPICAL LYMPHOCYTE FLAG 90 (0-99); FRAGMENT RBC FLAG 0 (0-99); HEMATOCRIT 25.4 % (38.0-47.0); HEMOGLOBIN 8.3 g/dL (12.6-16.3); LEFT SHIFT FLG 70 (0-99); LIPEMIA HEMOLYSIS FLAG 80 (0-99); MEAN CELL HEMOGLOBIN 31.8 pg (27.9-34.1); MEAN CELL HEMOGLOBIN CONCENTR. 32.7 g/dL (32.4-36.7); MEAN CELL VOLUME 97.3 fL (81.5-99.8); MEAN PLATELET VOLUME 11.5 fL (8.7-11.7); NRBC-AUTO% 0.7 % (0.0-0.2); PLATELET CLUMPS FLAG 10 (0-99); PLATELET COUNT 141 10^3/uL (150-400); RED BLOOD CELL COUNT 2.61 10^6/uL (4.18-5.33); RED CELL DISTRIBUTION WIDTH 17.6 % (11.5-15.2)
[2016-08-25 05:43] LABS: INR 2.08 (0.83-1.16); PROTIME(PATIENT) 23.5 SEC (12.0-15.0)
[2016-08-25 06:40] LABS: PLATELET ESTIMATE ADEQUATE (ADEQ); POLYCHROMASIA 1+
[2016-08-25] MEDS: PIPERACILLIN SODIUM/TAZOBACTAM 3.375 GM in D5W 50 ML IV SCH ×4 (07:05→23:56)
[2016-08-25 07:21] LABS: ANION GAP 7 mEq/L (8-16); BILIRUBIN,TOTAL 14.7 mg/dL (0.1-1.4); CARBON DIOXIDE 23 mEq/l (22-31); CHLORIDE 100 mEq/L (97-110); CREATININE 1.3 mg/dL (0.6-1.0); GLOMERULAR FILTRATION RATE 43; GLUCOSE 161 mg/dL (70-100); MAGNESIUM 2.5 mg/dL (1.6-2.3); POTASSIUM 5.9 mEq/L (3.5-5.2); SODIUM 130 mEq/L (134-144)
[2016-08-25 07:30] LABS: BILIRUBIN-UNCONJUGATED 1.7 mg/dL (0.0-1.1)
--- NOTE | 2016-08-25 08:44 | HOSPPROG ---
Hospitalist Progress Note Assessment/Plan: 51-year-old female who has had problems with diarrhea and weight loss for 6 months presenting with severe pulmonary embolism status post tPA and then developed hydro pneumothorax most likely due to pulmonary infarction low uop: on pressors cvp high lasix started cr only modestly elevated repeat chem 7 midday Acute transverse colon perforation - patient taken for emergent IVC filter and then intraoperative repair with Dr. Torres Patient with partial colectomy and ileostomy- colonic biopsy and wedge liver biopsy pending bloody stool yesterday concerning for colonic ischemia that said, lactate trending down follow completion colectomy very high risk hyperkalemia: 1. stop K protocol 2. hemolysis labs P 3. K containing tpn stopped 4. renal function noted hypotension: check limited echo elevated bilirubin: check ruq u/s at risk for acalculous cholecystitis acute ptx/pleural effusion s/p chest tubes - suspect d/t infarcted lung from PE - CXR (personally reviewed and interpreted) L chest tubes and airspace disease oxygen saturations 96% on 50% Fio2 on ventilator - continue chest tubes for surgery- decreased section today acute PE status post tPA- certainly chronic component to the VTE - IVC filter placed - heparin drip on hold until cleared by surgery- will wait til 08/25 given bloody stool acute hypoxic respiratory failure - worsened again post-ptx- as above anasarca - suspect secondary to chronic diarrhea - continue intermittent albumin for hypotension severe protein calorie malnutrition - dietary following, previous calorie count in progress- pre albumin is very low - continue TPN - NPO postoperative elevated INR- presumed due to malnutrition- given small doses of vitamin K upon initial presentation to reverse- INR 2.07 this morning check fibrinogen at risk for dic chronic diarrhea- family history of Crohn's- visual inspection by surgery overnight highly suspicious for ulcerative colitis - biopsies pending - gastroenterology following - can initiate treatment when diagnosis made anemia- status post transfusion x 3 units packed red blood cells since admission - monitor daily history of hemorrhoid/anal fissure FCFT prophylaxis on hold postop # diet NPO with TPN # disposition greater than 2 midnights as patient is critically ill requiring ventilatory support I have discussed the case with Dr. Márquez- will keep the patient ventilated today as she recovers from acute perforation yesterday Subjective: case d/w keli salas and shahla. hypotensive overnight. yesterday cxr unchanged (interp by me) Objective: Vital Signs Temp Pulse Resp BP Pulse Ox 37.1 C 98 30 H 91/61 L 92 08/25/16 08:00 08/25/16 08:00 08/25/16 08:00 08/25/16 08:00 08/25/16 08:00 Microbiology 08/21/16 21:40 Gram Stain - Final Peritoneal Fluid - Swab 08/16/16 10:41 Gram Stain - Final Pleural Fluid - Aspirate Laboratory Results 08/25/16 05:10 08/25/16 05:10 08/24/16 08/25/16 08/26/16 05:59 05:59 05:59 Intake Total 7062 3118.3 Output Total 1100 590 150 Balance 5962 2528.3 -150 PT 23.5 SEC (12.0-15.0) H 08/25/16 05:10 INR 2.08 (0.83-1.16) H 08/25/16 05:10 - Physical Exam Constitutional: other (intubated, sedated) Eyes: PERRL, EOMI, No anicteric sclera Ears, Nose, Mouth, Throat: moist mucous membranes, hearing normal Cardiovascular: regular rate and rhythym, no murmur, rub, or gallop Respiratory: no respiratory distress, no rales or rhonchi Gastrointestinal: normoactive bowel sounds, soft, non-tender abdomen, no palpable masses Genitourinary: mendiola in urethra Skin: warm, normal color Musculoskeletal: full muscle strength, no muscle tenderness Neurologic: No AAOx3 Psychiatric: interacting appropriately, not anxious Lymph, Heme, Immunologic: no cervical LAD ICD10 Worksheet Patient Problems: Problems Problem Status Diagnosed Dehydration Acute Pulmonary embolism Acute Anemia Acute C. difficile diarrhea Acute 04/21/16 Superficial thrombophlebitis Acute
[2016-08-25 08:53] LABS: LACTATE DEHYDROGENASE 892 IU/L (313-618); SPECIMEN ICTERUS 7
[2016-08-25] MEDS: CHLORHEXIDINE GLUCONATE 15 ML UDL PO SCH ×2 (09:44→22:03)
[2016-08-25] MEDS: MICAFUNGIN NA 100 MG in NS 100 ML IV SCH (09:45)
--- NOTE | 2016-08-25 09:52 | PDINTPN ---
[employer] Progress Note Assessment/Plan: Assessment/plan: 51 F with PMH of "colitis," anal fissures, GI fistulas, LGIB, "parasitic GI infections," and FH Crohns admitted 08/07/16 with SOB and hypoxia and found to have large PE. Because of evidence of RV strain she was given TPA followed by UFH which she tolerated well until about 08/20 when she developed LGIB. On 08/21 she had a sudden change in status with increased HR, decreased BP, increased lactate, and increasing hypoxia. A CXR/abdominal CT were consistent with viscous perforation and she was taken emergently to the OR for hemicolectomy. UFH held and IVC filter placed. Just prior to her CT she had a witnessed aspiration event, and returned from the OR on a vent. Hospital course was also complicated by a spontaneous PTX on 08/16, thought to be 2/2 a pulmonary infarct. She has required pressors since the OR as well. * Peritonitis s/p bowel perforation, hemicolectomy and liver biopsy for suspicious lesion. Lactate falling, though slowly. WBC stable around 15. Additional bloody BM so UFH held. Levophed at 12 and coming down. Path remains pending. TPN held this am for K. * Hypotension 2/2 above/septic shock. Continue with levophed/vasopressin. Titrate to MAP 65. As above. * Aspiration- she likely aspirated at time of PO contrast prior to OR. Should be adequately covered on current Abx. CXR looks better to me today * Respiratory failure with hypoxia- 2/2 above plus PE and PTX. Vent day #4. Improving with drop in fio2 to 50 today. Higher peep MAY have resuilted in greater loss of TV. Normal pH now, therefore not a contributor to hyperkalemia. A TV of 550 may increase her risk for ALI. 8 ml/kg would be 450 so lowered that today. Ve about the same * PE s/p TPA. IVC filter placed and anticoagulation held. Resume heparin drip when able. She had difficulty achieving a therapeutic level previously- if this remains a problem may try an alternate such as argatroban. Once stable will need to have IVC filter removed * PTX presumably from pulmonary infarct. Still with CT leak. 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 Await path report. TPN held * LGIB 2/2 presumed ischemic colitis. Cdiff ruled out and currently stable * Anemia - transfuse Hgb <7.0 * Oliguria with mild LUAN- creatinine up to 1.3 and UOP about 25/hr and stable. Trial lasix today. DBT had no effect so titrating off. Plus EF was 81% on making additional CO unlikely. * Hyperkalemia- with elevated TB concerning for hemolysis so haptoglobin sent ( though direct>indirect). TPN stopped and recheck later today. Na will likely rise as well * Critical care time 45 minutes 08/24/16 13:06 08/25/16 09:45 08/25/16 09:54 Objective: Vital Signs Temp Pulse Resp BP Pulse Ox 37.1 C 98 30 H 91/61 L 92 08/25/16 08:00 08/25/16 08:00 08/25/16 08:00 08/25/16 08:00 08/25/16 08:00 Microbiology 08/21/16 21:40 Gram Stain - Final Peritoneal Fluid - Swab 08/16/16 10:41 Gram Stain - Final Pleural Fluid - Aspirate Laboratory Results 08/25/16 05:10 08/25/16 05:10 08/24/16 08/25/16 08/26/16 05:59 05:59 05:59 Intake Total 7062 3118.3 Output Total 1100 590 150 Balance 5962 2528.3 -150 PT 23.5 SEC (12.0-15.0) H 08/25/16 05:10 INR 2.08 (0.83-1.16) H 08/25/16 05:10 Physical Exam - Physical Exam General Appearance: no apparent distress, other (sedated on vent ) EENT: PERRL/EOMI, ET tube Neck: supple, No carotid bruit Respiratory: lungs clear, normal breath sounds, No respiratory distress, No rales, No rhonchi Cardiac/Chest: normal peripheral pulses, regular rate, rhythm Abdomen: soft, No organomegaly, No distended Skin: warm/dry, No cyanosis, No rash Lymphatic: no adenopathy Extremities: non-tender, No pedal edema ICD10 Worksheet Patient Problems: Problems Problem Status Diagnosed Dehydration Acute Pulmonary embolism Acute Anemia Acute C. difficile diarrhea Acute 04/21/16 Superficial thrombophlebitis Acute
--- NOTE | 2016-08-25 10:59 | SOAPPROG ---
SOAP Progress Note Assessment/Plan: Assessment/Plan: 1. Chronic diarrhea. Colitis, with perforation, found. Etiology unclear ( ischemic vs. IBD, etc.). Low -ostomy output. - pathology pending 2. Hepatomegaly seen at time of surgery, with fat infiltration, with ascites. However, on adm'x, essentially normal LFTs. I suspect she may have some fatty liver, but for the most part, not clinically significant prior to adm'x. Here in the hospital, with her multi-organ problems, I suspect she then developed some decompensation. As she hopefully improves, this should improve. - wedge liver bx pending 3. Elevated TB. Suspect jaundice of sepsis/multiorgan failure only (with some possible decompensation from fatty liver). Normal on adm'x, and although gallstones, normal ducts and essentially normal LFTs otherwise. Doubt cholecystitis, as shouldn't cause an increased bilirubin. RUQ US has been ordered. 08/25/16 10:55 Subjective: cc: diarrhea Intubated, sedated, unable to obtain history. Case d/w family. Objective: Vital Signs Temp Pulse Resp BP Pulse Ox 37.1 C 94 31 H 90/59 L 91 L 08/25/16 08:00 08/25/16 09:00 08/25/16 09:00 08/25/16 09:00 08/25/16 09:00 Microbiology 08/21/16 21:40 Gram Stain - Final Peritoneal Fluid - Swab 08/16/16 10:41 Gram Stain - Final Pleural Fluid - Aspirate Laboratory Results 08/25/16 05:10 08/25/16 05:10 08/24/16 08/25/16 08/26/16 05:59 05:59 05:59 Intake Total 7062 3118.3 Output Total 1100 590 150 Balance 5962 2528.3 -150 PT 23.5 SEC (12.0-15.0) H 08/25/16 05:10 INR 2.08 (0.83-1.16) H 08/25/16 05:10 TB 14.7 Physical Exam - Physical Exam General Appearance: moderate distress, unresponsive EENT: PERRL/EOMI, normal ENT inspection, pharynx normal, TMs normal Neck: non-tender, full range of motion, supple, normal inspection Respiratory: chest non-tender, lungs clear, normal breath sounds Cardiac/Chest: normal peripheral pulses, regular rate, rhythm Peripheral Pulses: 2+: carotid (R), carotid (L), femoral (R), femoral (L), dorsalis-pedis (R), dorsalis-pedis (L) Abdomen: soft (two -ostomies in place) Pelvic Exam: deferred Rectal: deferred Back: Normal inspection Skin: normal color, warm/dry Lymphatic: no adenopathy Extremities: normal range of motion, non-tender, normal inspection, normal capillary refill Neuro/Psych: No alert, No oriented x 3 ICD10 Worksheet Patient Problems: Problems Problem Status Diagnosed Dehydration Acute Pulmonary embolism Acute Anemia Acute C. difficile diarrhea Acute 04/21/16 Superficial thrombophlebitis Acute
[2016-08-25 12:02] LABS: ANION GAP 9 mEq/L (8-16); CALCIUM 7.2 mg/dL (8.5-10.4); CARBON DIOXIDE 22 mEq/l (22-31); CHLORIDE 99 mEq/L (97-110); CREATININE 1.6 mg/dL (0.6-1.0); GLOMERULAR FILTRATION RATE 34; GLUCOSE 107 mg/dL (70-100); POTASSIUM 6.2 mEq/L (3.5-5.2); SODIUM 130 mEq/L (134-144)
[2016-08-25] MEDS: VASOPRESSIN/DEXTROSE 250 ML IV SCH ×2 (12:14→22:40)
[2016-08-25] MEDS ORDERED: ALBUMIN 25% 100 ML IV ONE (13:00)
[2016-08-25] MEDS ORDERED: CALCIUM GLUCONATE 50 ML IV ONE (13:06)
--- NOTE | 2016-08-25 13:54 | US ---
Ultrasound Abdomen Limited History: Increasing bilirubin. Abdominal pain. Critically ill. Comparison: CT dated August 21, 2016 and ultrasound dated August 20, 2016. Findings: Liver is enlarged, measuring 30 cm. This is similar to the comparison CT. Ultrasound measur ement previously was smaller, but this could be technical difference as the CT craniocaudal measureme nt was 27 cm. There is diffuse increased echogenicity to the liver. No focal liver lesion. No evidenc e for intrahepatic biliary ductal dilatation. There is cholelithiasis. Gallbladder wall is thickened and increased over the interval from the comparison ultrasound. Wall thickness was seen on the compar rachel CT. No evidence of hyperemia. Common bile duct is not well visualized. Pancreas is not well visu alized secondary to overlying bowel gas. Right kidney measures 13.5 cm in length and demonstrates no evidence for hydronephrosis. Small amount of free fluid is present. Impression: Hepatomegaly with probable fatty infiltration. No evidence for intrahepatic biliary ducta l dilatation. The common bile duct is not well visualized. Gallbladder wall thickening has increased, but no evidence for hyperemia and there is evidence of underlying cholelithiasis.
--- NOTE | 2016-08-25 13:55 | DX ---
AP Portable Chest August 24, 2016 Indication: Evaluate line placement. Findings: Left-sided PICC terminates in SVC. Lines, tubes, and pulmonary infiltrates are otherwise un changed. Impression: Left-sided PICC terminates in SVC, ready for immediate use.
--- NOTE | 2016-08-25 14:03 | CPEKG ---
Heart Rate: 97 RR Interval: 619 P-R Interval: 168 QRSD Interval: 76 QT Interval: 332 QTC Interval: 422 P [place]: 50 QRS [place]: 59 T Wave [place]: 39 EKG Severity - BORDERLINE ECG - EKG Impression: SINUS RHYTHM EKG Impression: LOW VOLTAGE IN FRONTAL LEADS EKG Impression: BORDERLINE R WAVE PROGRESSION, ANTERIOR LEADS EKG Impression: NONSPECIFIC ST_T WAVE ABNORMAILITES Electronically Signed By: Marco Shirley 25-Aug-2016 16:24:57
[2016-08-25] MEDS: SODIUM BICARBONATE 150 MEQ in D5W 1,000 ML IV SCH ×2 (14:09→21:35)
--- NOTE | 2016-08-25 14:12 | PCMIDPN ---
Assessment/Plan: 1. Peritonitis after colonic perforation now postop day 4 status post exploratory laparotomy with right sided colectomy: Remains on 2 pressors, critically ill. Continue Zosyn as is with higher anti pseudomonal dosing given probable Pseudomonas in peritoneal cultures, but dose adjusted for renal insufficiency and mindful of the fact that her kidney function will likely continue to deteriorate.(will need to keep an eye on dose) . Continue Micafungin. CT scan of the abdomen and pelvis ordered. 2. Aspiration pneumonia/infected hydropneumothorax: Chest tube decreased output. Continue Zosyn as outlined above. 3. Probable inflammatory bowel disease: Colon biopsy results pending. Stool cultures have been negative including C difficile. 4. Hyponatremia/hyperkalemia: Check random cortisol. CT scan of the abdomen and pelvis today to further evaluate for other causes of adrenal insufficiency such as adrenal hemorrhage. Subjective: About the same. Remains critically ill on 2 pressors. Total bilirubin ( practically all direct) continues to rise. Urine output starting to drop. Creatinine has gone up, and the patient is hyperkalemic. Objective: Zosyn 3.375 g IV q.6 hours day 4 Micafungin 100 mg IV daily day 4 T-max 39.5degrees yesterday Vital Signs Temp Pulse Resp BP Pulse Ox 37.3 C 102 H 34 H 104/71 96 08/25/16 13:00 08/25/16 13:00 08/25/16 13:00 08/25/16 13:00 08/25/16 13:00 Microbiology 08/21/16 21:40 Gram Stain - Final Peritoneal Fluid - Swab 08/16/16 10:41 Gram Stain - Final Pleural Fluid - Aspirate Laboratory Results 08/25/16 05:10 08/25/16 11:10 08/24/16 08/25/16 08/26/16 05:59 05:59 05:59 Intake Total 7062 3118.3 Output Total 1100 590 150 Balance 5962 2528.3 -150 Peritoneal fluid cultures with 3+ susceptible E coli, and a new growth today of 1+ Gram-negative sherry, non lactose fish salter August 16 pleural fluid culture with Gram-negative sherry, sent to [facility] for further identification August 21 blood culture negative - Physical Exam General Appearance: obese, other (Jaundice, anasarca) EENT: scleral icterus Respiratory: coarse breath sounds (Right-sided chest tube), other (Chest tube beneath right breast with decreased air leak today.) Cardiac/Chest: tachycardia Abdomen: other (Ileostomy with bilious drainage, mucous fistula bag is empty. Incision without obvious drainage. Abdomen with no bowel sounds. Distended.) Skin: jaundice, No rash, No embolic lesions ICD10 Worksheet Patient Problems: Problems Problem Status Diagnosed Dehydration Acute Pulmonary embolism Acute Anemia Acute C. difficile diarrhea Acute 04/21/16 Superficial thrombophlebitis Acute
[2016-08-25] MEDS ORDERED: D50W 25 GM/50 ML SYR IVP ONE ×2 (14:30→22:09)
[2016-08-25] MEDS ORDERED: INSULIN REGULAR HUMAN 100 UNIT/ML IVP ONE ×2 (14:30→22:11)
--- NOTE | 2016-08-25 14:52 | IR ---
Imaging Guided Peripherally Inserted Central Catheter History: Central line access needed for multiple medications. Prophylactic Antibiotic: Cefazolin was not ordered and administered for antimicrobial prophylaxis be cause it was not medically necessary for this procedure. VTE Prophylaxis: There is not an order for VTE prophylaxis to be given within 24 hours after procedu re end time because it was not medically necessary for this procedure. Crosscutting Measure: Patient's current list of medications including all known prescriptions, over- the-counters, herbals, and vitamin/mineral/dietary supplements are reviewed. Medications' name, dosa ge, frequency, and route of administration are confirmed. Patient is a non-smoker. Technique: This procedure is performed at patient's bedside. No fluoroscopy was utilized. Following i nformed consent, the left arm was prepped and draped in sterile fashion. 1% Xylocaine was used for lo ana cristina anesthetic. All elements of maximal sterile barrier technique including cap, mask, sterile gown , sterile gloves, large sterile sheet, hand hygiene, and 2% chlorhexidine for cutaneous antisepsis fo llowed. Ultrasound evaluation of potential access site was performed. After successfully identifying a patent vessel, ultrasound guidance was used to puncture the vein. A permanent recording was created for the patient's record. Ultrasound transducer was placed in sterile sleeve and used for real-time imaging guidance over steri le gel to enter the basilic vein. 0.018 measuring wire was passed centrally. A skin cassidy with scalpel blade was followed by removing the access needle. A 5.5-Icelandic peel-away sheath was followed by a 6- Icelandic triple lumen central catheter trimmed to 46 cm length. The tip of the catheter was positioned centrally and the guidewire removed. The hub of the catheter was fixed to the skin using a sterile S tatLock adhesive device, and a sterile dressing was applied. The catheter was irrigated. Fluoroscopy: 0 min Dose: 0 mGy Exposures: 0 images Impression: 5.5-Icelandic triple lumen peripherally inserted central catheter. Chest x-ray to follow to evaluate tip placement.
[2016-08-25 15:12] LABS: ANION GAP 9 mEq/L (8-16); CALCIUM 7.5 mg/dL (8.5-10.4); CARBON DIOXIDE 23 mEq/l (22-31); CHLORIDE 99 mEq/L (97-110); CREATININE 1.7 mg/dL (0.6-1.0); GLOMERULAR FILTRATION RATE 32; GLUCOSE 136 mg/dL (70-100); POTASSIUM 5.6 mEq/L (3.5-5.2); SODIUM 131 mEq/L (134-144)
--- NOTE | 2016-08-25 15:48 | ECHO ---
[id number] + + [address] : : [place] [address] : : [phone] + + Adult Echocardiographic Report + + :Name: EROS MOORE JStudy Date: 08/25/2016 10:11 AM : : Hospital Admission Number: [id number] : :: 1965 Gender: Female Height: 65 in : :Age: 51 yrs Race: WH Weight: 194 lb : :Reason For Study: Eval RV/LV function, right heart : :pressures BSA: 2.0 meters2: + + MMode/2D Measurements & Calculations IVSd: 1.1 cm LVIDd: 4.7 cm FS: 16.4 % LVLd ap4: 7.7 cm LVPWd: 0.95 cm LVIDs: 3.9 cm EDV(Teich): 102.4 mlEDV(MOD-sp4): 100.0 ml ESV(Teich): 67.1 ml LVLs ap4: 6.8 cm EF(Teich): 34.5 % ESV(MOD-sp4): 58.0 ml EF(MOD-sp4): 42.0 % SV(MOD-sp4): 42.0 ml Normal Measurement Values: + + :LVIDd (3.5-5.7cm) IVSd (0.6-1.1cm) LVPWd (0.6-1.1cm) Aortic Root (2.0-3.7cm)Left Atrium (1.5-4.0cm): :LV Vol(d) (76-115ml) LV Vol(s) (29-48ml) Ejec Fraction (50-65%)PV Dimitris (0.6- 1.2m/s) TV Dimitris (0.4-1.0m/s) : :MV E Dimitris (0.8-1.0m/s)MV A Dimitris (0.3-1.0m/s)LVOT Dimitris (0.7-1.2m/s) Asc Ao Dimitris ( 0.9-1.8m/s) : + + Doppler Measurements & Calculations PA V2 max: 83.4 cm/sec PI end-d dimitris: 128.5 cm/sec TR max dimitris: 306.8 cm/sec PA max P.8 mmHg TR max P.6 mmHg RAP systole: 15.0 mmHg RVSP(TR): 52.6 mmHg Left Ventricle The left ventricle is normal in size. There is normal left ventricular wall thickness. Ejection Fraction = 25-30%. Paradoxic septal motion, apex and anterolateral wall. Right Ventricle The right ventricle is moderately dilated. The right ventricular systolic function is moderately reduced. Atria The left atrium is mildly dilated. The right atrium is moderately dilated. The interatrial septum is intact with no evidence for an atrial septal defect. Mitral Valve The mitral valve is normal in structure and function. There is mild mitral regurgitation. Tricuspid Valve The tricuspid valve is normal in structure and function. There is no tricuspid stenosis. There is torrential tricuspid regurgitation. Right ventricular systolic pressure is 52.6mmHg. Aortic Valve The aortic valve is trileaflet. There is no aortic stenosis. Mild aortic regurgitation. Pulmonic Valve The pulmonic valve is normal in structure and function. There is no pulmonic valvular stenosis. Moderate pulmonic valvular regurgitation. Pericardium/Pleural There is a fat pad seen. trivial pericardial effusion. There is a moderate pleural effusion. Conclusion This is a limited study to eval LV/ RV and Right heart pressures. The left ventricle is normal in size. Severely reduced LV systolic function. Ejection Fraction = 25-30%. Paradoxic septal motion with akinesis of the apex and anterolateral wall. The right ventricle is moderately dilated. The left atrium is mildly dilated. The right atrium is moderately dilated. Mild aortic regurgitation. There is mild mitral regurgitation. There is torrential tricuspid regurgitation. Right ventricular systolic pressure is 52.6mmHg. Moderate pulmonic valvular regurgitation. Trivial pericardial effusion. Compared to a prior study done 08/08/2016 there has been a significant reduction in the LVEF. Dilated IVC 2.6 cm There is a moderate pleural effusion. Trivial pericardial effusion. Final Reading Physician: Elham Flores signed on 08/25/2016 03:47 PM Ordering Physician: Benitez Fuentes Performed By: Eros Herbert
--- NOTE | 2016-08-25 15:58 | SOAPPROG ---
SOAP Progress Note Assessment/Plan: Assessment: Plan: Subjective: pod 3 ex lap for r colectomy for contained perf-peritoneal cultures showing e coli on vent sedated lungs coarse ronchi heart tachy, on vasopressin and levophed abd firm, impossible to acess for masses or pain. extremities- anasarca las include elevated wbc with l shift, high k, creat 1.7 urine ouput low this am, getting lasix. access; multi system issues with resp failure, renal injury, hypotension. concern for ischemic bowel discussed on rounds. no large acidosis, despite elevated lactate. continue to monitor lactate and abg's. re expore if signs of ongoing bowel ischemia present. difficult decision, as pt poor surgical candidate. Objective: Vital Signs Temp Pulse Resp BP Pulse Ox 37.3 C 101 H 29 H 100/70 94 08/25/16 13:00 08/25/16 14:00 08/25/16 14:00 08/25/16 14:00 08/25/16 14:00 Microbiology 08/21/16 21:40 Gram Stain - Final Peritoneal Fluid - Swab 08/16/16 10:41 Gram Stain - Final Pleural Fluid - Aspirate Laboratory Results 08/25/16 05:10 08/25/16 14:35 08/24/16 08/25/16 08/26/16 05:59 05:59 05:59 Intake Total 7062 3118.3 Output Total 1100 590 150 Balance 5962 2528.3 -150 PT 23.5 SEC (12.0-15.0) H 08/25/16 05:10 INR 2.08 (0.83-1.16) H 08/25/16 05:10 ICD10 Worksheet Patient Problems: Problems Problem Status Diagnosed Dehydration Acute Pulmonary embolism Acute Anemia Acute C. difficile diarrhea Acute 04/21/16 Superficial thrombophlebitis Acute
--- NOTE | 2016-08-25 17:51 | CT ---
CT Abdomen and Pelvis Without Contrast August 25, 2016 at 1543 Hours Indication: Acute renal insufficiency and symptoms of adrenal insufficiency. Recent hemicolectomy. Technique: The abdomen and pelvis was scanned with 5 mm thick helically acquired slices. No IV or ora l contrast was administered. Dose reduction techniques were utilized. Comparison: CT of the abdomen and pelvis dated August 21, 2016. Findings: Moderate volume of low attenuation ascites is present in the low pelvis and along bilateral paracolic gutters. No pneumoperitoneum. Skin coral are present anteriorly, indicative of recent la parotomy. An esophagogastric tube is present with the tip and side-port in the stomach. The enlarged liver has generalized decreased attenuation characteristic of hepatic steatosis (unchang ed). The low attenuation and triangular foci of decreased attenuation in the spleen are similar to th e prior study, characteristic of splenic infarctions. The adrenal glands are normal size. No hydronep hrosis, nephrolithiasis, or ureteral calculi. The urinary bladder is partially filled with urine and small volume nondependent gas contains a [place] catheter balloon. A new ileostomy is present along the right abdominal wall and a new colostomy is present along the le ft midabdominal wall. The loops of small bowel are decompressed. The mesentery and subcutaneous fat h ave diffuse edema. Inferior vena cava filter is present with the tip just inferior to the drainage of the renal veins. No fracture or bone lesions. Impression: 1. Moderate ascites and diffuse anasarca. 2. Hepatomegaly and diffuse hepatic steatosis. 3. Normal size adrenal glands. 4. Decompressed bowel with features of right ileostomy and left colostomy.
[2016-08-25 17:57] LABS: TROPONIN I 0.284 ng/mL (0-0.034)
[2016-08-25 18:09] LABS: ALANINE AMINOTRANSFERASE 39 IU/L (9-52); ALBUMIN 2.4 g/dL (3.5-5.0); ALKALINE PHOSPHATASE 29 IU/L (38-126); ANION GAP 13 mEq/L (8-16); ASPARTATE AMINOTRANSFERASE 70 IU/L (14-46); BILIRUBIN,TOTAL 15.4 mg/dL (0.1-1.4); CALCIUM 7.4 mg/dL (8.5-10.4); CARBON DIOXIDE 23 mEq/l (22-31); CHLORIDE 96 mEq/L (97-110); CREATININE 1.7 mg/dL (0.6-1.0); GLOMERULAR FILTRATION RATE 32; GLUCOSE 117 mg/dL (70-100); POTASSIUM 6.1 mEq/L (3.5-5.2); SODIUM 132 mEq/L (134-144); TOTAL PROTEIN 5.8 g/dL (6.3-8.2)
--- NOTE | 2016-08-25 18:17 | CT ---
CT Chest Without Contrast Indication: Worsening hypoxia. History of pulmonary embolism and right pneumothorax. Technique: Standard CT of the chest utilizing 5 mm collimated slices through the thorax. Dose reduct ion techniques were utilized. Comparison: CT of the abdomen and pelvis dated August 21, 2016, CT angiogram of the chest dated 2016, and CT of the abdomen and pelvis dated March 26, 2016. Findings: An ET tube is present with the tip 1 cm superior to the naa. Bilateral PICC's are in anais ce with the tips in the superior vena cava. Two large caliber right chest tubes are in place. The ant erior tube courses along the minor fissure and the second is present posterior to the right midlung. A small right anterior pneumothorax measures 1 cm AP. Minimal fluid resides dependently in the right hemithorax and along the major fissure. A small 2 x 3 cm fluid locule is present posteriorly near the posterior drain on images 80-86 of series 3. A moderate left pleural effusion layers dependently, measuring 1 cm in thickness superiorly and 4 cm in thickness inferiorly. No discrete left-sided locule. Dense multifocal airspace consolidation is present throughout the left upper lobe, left lower lobe, r ight lower lobe, and to a lesser degree, right middle lobe. The right upper lobe is relatively spared . Central airway is clear, except for minimal bronchomalacia of the right and left main bronchus. No central mucous plugging. The heart is mildly enlarged. No pericardial effusion. Thoracic aorta is normal caliber. Diffuse subc utaneous and body wall edema is indicative of third spacing. No bone lesion. Impression: 1. ET tube borderline low (tip 1 cm above the naa). 2. Support devices otherwise well positioned. 3. Tiny right pleural effusion and small right anterior pneumothorax. 4. Moderate left pleural effusion. 5. Multifocal dense airspace consolidation. No discernible pulmonary abscess or cavitary lesion. 6. Anasarca.
[2016-08-25] MEDS: NOREPINEPHRINE BITARTRATE 16 MG in NS 250 ML IV SCH ×2 (18:19→21:36)
[2016-08-25 18:25] LABS: BILIRUBIN-UNCONJUGATED 1.4 mg/dL (0.0-1.1); SPECIMEN ICTERUS 6
[2016-08-25] MEDS ORDERED: HEPARIN 10,000 UNIT/10 ML MDV ONE (18:25)
[2016-08-25] MEDS ORDERED: LIDOCAINE 1% 30 ML SDV ONE (18:32)
--- NOTE | 2016-08-25 19:02 | POSTOPPROG ---
Post Op Note Date of Operation: 08/25/16 Surgeon: Corey Jessica Anesthesia: Local (Specify) Pre-op Diagnosis: acute renal failure Post-op Diagnosis: same Indication: same Procedure: r femoral dialysis catheter placement Inf/Abcess present in the surg proc area at time of surgery?: No EBL: Minimal Complications: none
--- NOTE | 2016-08-25 19:41 | GPN ---
[f rep st] PROCEDURE NOTE PREOPERATIVE DIAGNOSIS: Acute renal failure. POSTOPERATIVE DIAGNOSIS: Acute renal failure. PROCEDURE PERFORMED: Right femoral central venous line placement for dialysis catheter. INDICATIONS: A 51-year-old female with multiple organ failure including renal failure today needing a catheter for dialysis. PROCEDURE IN DETAIL: The right groin was scrubbed with ChloraPrep, draped in the usual sterile fashi on. Ultrasound was used to locate the femoral vein, and an 18-gauge thin-wall needle used to aspirat e blood. A guidewire was inserted. Dilator was placed over this, and eventually a Mahurkar dialysis catheter inserted. All ports were flushed with heparinized saline and capped. The device was sewn to the skin of the thigh with nylon sutures, and the nurse dressed the wound. Blood was freely aspir ated from all ports. The patient tolerated the procedure well. /[id number]/MODL
[2016-08-25] MEDS ORDERED: ALBUMIN 5% 500 ML BOTTLE IV ONE (21:18)
[2016-08-25] MEDS: TPN W/ FAMOTIDINE 1 EA BAG IV SCH (21:37)
[2016-08-25] MEDS ORDERED: ALBUMIN 5% 500 ML IV ONE (21:51)
[2016-08-25] MEDS ORDERED: SODIUM PHOS 20 MM in D5W 250 ML IV PRN (22:00)
[2016-08-25] MEDS ORDERED: ACCESSORY DRAIN 1 EA BAG***SEND #2 INITIALLY MISC PRN (22:00)
[2016-08-25] MEDS ORDERED: POTASSIUM Cl (KCl) 100 ML IV PRN (22:00)
[2016-08-25] MEDS ORDERED: MAGNESIUM SULF 2 GM/WATER 50 ML IV PRN (22:00)
[2016-08-25] MEDS ORDERED: SODIUM CITRATE 4% 5 ML in SYRINGE 0 ML DIAL PRN (22:00)
[2016-08-25] MEDS ORDERED: PRE-DILUTION FILTER SET 100 ****SEND #2 INITIALLY MISC PRN (22:00)
[2016-08-25] MEDS ORDERED: PIPERACILLIN SODIUM/TAZOBACTAM 3.375 GM in D5W 50 ML IV SCH (22:00)
[2016-08-25 22:02] LABS: ALANINE AMINOTRANSFERASE 40 IU/L (9-52); ALBUMIN 2.4 g/dL (3.5-5.0); ALKALINE PHOSPHATASE 28 IU/L (38-126); ANION GAP 21 mEq/L (8-16); ASPARTATE AMINOTRANSFERASE 88 IU/L (14-46); BILIRUBIN,TOTAL 15.4 mg/dL (0.1-1.4); CALCIUM 7.3 mg/dL (8.5-10.4); CARBON DIOXIDE 14 mEq/l (22-31); CHLORIDE 96 mEq/L (97-110); CREATININE 1.9 mg/dL (0.6-1.0); GLOMERULAR FILTRATION RATE 28; GLUCOSE 54 mg/dL (70-100); SODIUM 131 mEq/L (134-144); TOTAL PROTEIN 5.5 g/dL (6.3-8.2)
[2016-08-25 22:10] LABS: POTASSIUM 6.3 mEq/L (3.5-5.2)
[2016-08-25 22:19] LABS: BILIRUBIN-CONJUGATED 14.1 mg/dL (0.0-0.5); BILIRUBIN-UNCONJUGATED 1.3 mg/dL (0.0-1.1)
[2016-08-25] MEDS ORDERED: SODIUM BICARBONATE 50 MEQ/50 ML SYR IVP ONE (22:37)
[2016-08-25] MEDS: PHENYLEPHRINE HCL 50 MG in D5W 250 ML IV SCH (22:45)
--- NOTE | 2016-08-25 22:49 | DX ---
Portable Chest, Single View 22:14 p.m. Hours Indication: Refractory hypotension. Follow-up right pneumothorax. Comparison: Portable chest dated August 24, [address] chest performed earlier today. Findings: The ET tube, bilateral PICCs, 2 right chest tubes, and esophagogastric tube are all unchang ed in position since earlier today. Small right pneumothorax is unchanged. Mild diffuse pulmonary magdalena ma is equivocally worse. Bilateral airspace consolidation, small bilateral pleural effusions and mode rate cardiomegaly are unchanged. Impression: 1. Support devices in good position. 2. Small right pneumothorax unchanged. 3. Equivocally worse interstitial pulmonary edema.
[2016-08-25] MEDS ORDERED: NA BICARBONATE 50 MEQ/50 ML VIAL IV ONE (23:00)
[2016-08-25 23:23] LABS: ABSOLUTE NRBC COUNT 0.27 10^3/uL (0-0.01); ADD DIFF? YES; ADD SCAN? NO; ATYPICAL LYMPHOCYTE FLAG 40 (0-99); FRAGMENT RBC FLAG 0 (0-99); HEMATOCRIT 25.8 % (38.0-47.0); HEMOGLOBIN 7.9 g/dL (12.6-16.3); LEFT SHIFT FLG 90 (0-99); LIPEMIA HEMOLYSIS FLAG 80 (0-99); MEAN CELL HEMOGLOBIN 32.1 pg (27.9-34.1); MEAN CELL HEMOGLOBIN CONCENTR. 30.6 g/dL (32.4-36.7); MEAN CELL VOLUME 104.9 fL (81.5-99.8); MEAN PLATELET VOLUME 11.8 fL (8.7-11.7); PLATELET CLUMPS FLAG 0 (0-99); PLATELET COUNT 126 10^3/uL (150-400); RED BLOOD CELL COUNT 2.46 10^6/uL (4.18-5.33)
--- NOTE | 2016-08-25 23:26 | GCON ---
[f rep st] CONSULTATION DATE OF CONSULTATION: 08/25/2016 REASON FOR CONSULTATION: 1. Acute renal failure with anuria and refractory hyperkalemia. 2. Shock. 3. Multi-system organ failure. 4. History of right lower extremity DVT, with complications of pulmonary embolus and pulmonary infarction. 5. Recurrent pneumothorax due to pulmonary infarction. 6. Spontaneous colonic perforation requiring resection of ascending and transverse colon and ileostomy. 7. History of IVC filter placement. 8. Refractory hypotension. HISTORY: The patient is an unfortunate 51-year-old female who was admitted through the emergency room on 08/07/2016, with hypoxia with oxygen saturations in the 60s. She was found to have low blood pressure and tachycardia. She had complained of increasing shortness of breath. She had a chest x-ray, which showed a wedge-shaped defect in the right lateral lung. She had an EKG which showed right-sided strain pattern. Because of this, she underwent CTA to rule out pulmonary embolus. Indeed, she was found to have bilateral pulmonary emboli with evidence of infarction. Due to the severity of her symptoms, she was given tPA. She was then placed on a heparin drip. Unfortunately, she developed complications of a right-sided pneumothorax that was felt to be related to her right-sided pulmonary infarct. She had multiple chest tubes placed. She had 2 tubes placed 08/16, and she had replacement of chest tubes on the right side on the , on 2 separate occasions. She continued with intensive care unit care. Evidently, on the of this admission, she underwent CT scan of her abdomen due to GI symptoms. She was found to have free air. Because her recent PE, she then underwent IVC filter placement that day, and then on the underwent exploratory laparotomy. She had peritonitis. She had evidence of a colonic perforation. She had resection of her ascending and transverse colon. Ileostomy was constructed. She went back to the OR later that same day, and had extension of her right colectomy. On the , she had evidence of renal injury, with her creatinine going up from 0.6 to 1.1. This trend has continued, with her creatinine going up to 1.9 at the time of this dictation. During this time, she also developed problems with hyperkalemia, with a potassium of 5.4. The patient had other medical problems including transaminitis and development of hyperbilirubinemia. Her electrolyte issues progressed. Yesterday morning, she had hyperkalemia with a potassium of 5.4. This morning she had levels above 6 that respond briefly to pharmacologic intervention. She now has continued hyperkalemia with potassium of 6.3. This has been associated with refractory hypotension requiring administration of multiple pressors. Her oxygen requirements have also increased. I have been asked to consult for her acute renal failure and hyperkalemia. PAST MEDICAL HISTORY: Relatively limited. She has had problems with colitis prior to her admission, anal fissures that have required surgery, and anemia. She was felt to have some superficial thrombophlebitis prior to her admission. She evidently also had an episode of C difficile diarrhea. OUTPATIENT MEDICATIONS: Alprazolam, herbal supplements, multivitamin, Compazine. ALLERGIES: None. FAMILY HISTORY: Positive for Crohn's as well as heart failure. SOCIAL HISTORY: She evidently had poor nutritional status coming into the hospital, per her family. 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 REVIEW OF SYSTEMS: Remarkable for being overweight. Review of systems is unobtainable as the patient is sedated and on the ventilator and on pressors. PHYSICAL EXAMINATION: VITAL SIGNS: Blood pressure at 6 p.m. was 96/73. Currently, her blood pressure continues to fall repeatedly below 70. She is tachycardic with a heart rate of 109, respirations are 24. FiO2 has gone up from 80% to 100% on the vent. APPEARANCE: Pale, obese woman, sedated, on the vent, in no apparent distress. HEENT: Remarkable for an ET tube. NECK: Unremarkable. HEART: Tachycardic with no extra heart sounds. LUNGS: Coarse bilaterally. ABDOMEN: Ileostomy present, I believe, in the right lower quadrant. In the left upper quadrant she has another ostomy site. [place] intact with from her midline incision. ABD pad in place. Right femoral vein dialysis catheter has been placed by Dr. Jessica. EXTREMITIES: Have edema into the thighs. LABS: From this morning, show a hematocrit of 25 with a white count of 15,000. Current chemistries show a potassium of 6.3, with a bicarb that has dropped from 23 down to 14. Today, she has been essentially anuric with approximately 40 cc out. ASSESSMENT: 1. Acute renal failure with refractory hyperkalemia, and development of severe acidosis with increased anion gap. She most likely has acute tubular necrosis. I am concerned that she has ongoing intra-abdominal ischemia and injury. She is on Levophed and vasopressin. Since my arrival, she has been given 500 cc of 5% albumin and dopamine, and Vickey-Synephrine has been added for blood pressure support. 2. For her hyperkalemia, she has been given D50 and insulin. She is currently on a bicarb drip at 150 cc/hour. I will give her additional bicarb given her acidosis, but she will need emergent dialysis in the form of CRRT in order to give her any chance of surviving this. The case was discussed with the family. They understand that she is at high risk of dying even with initiation of dialysis. Without dialysis, I suspect she would pass away in a matter of hours. We discussed continuing current level of care versus adding dialysis. The family wishes to proceed with dialysis. Given her extremely unstable state, we redressed her code status. They agree the patient should have limited status with pharmacologic interventions only, with no chest compressions, and no cardioversion. She currently is intubated and on 100% oxygen. We will continue her current ventilatory support. She has had problems with pneumothorax during this admission. Although her breath sounds are present bilaterally and coarse, a chest x-ray was obtained to make sure she had not developed a new spontaneous pneumothorax. My reading of the chest x-ray is consistent with both lungs being fully inflated at this time. We will check a CBC to make sure she has not had significant blood loss contributing to her hypotension. Given her unstable state, dialysis will need to be in the form of continuous renal replacement therapy. Consent has been obtained from the patient's mother. Both she and the patient's brother understand the severity of the patient's illness. /[id number]/MODL MTDD
[2016-08-25 23:57] LABS: NRBC-AUTO% 1.1 % (0.0-0.2)
[2016-08-25 23:58] LABS: ADD MORPH? NO
[2016-08-26] MEDS: NS 1,000 ML MISC SCH ×4 (00:15→13:17)
[2016-08-26] MEDS: B22GK4/0 PRISMASATE 5,000 ML DIAL SCH ×5 (00:15→13:15)
[2016-08-26] MEDS: REPL FLUID TYPE D RXY 1 EA, SODIUM CITRATE 4% 375 ML, SODIUM Cl 3% 519 ML in WATER FOR ... DIAL SCH ×7 (00:15→13:20)
[2016-08-26] MEDS: CALCIUM CHLORIDE 5.7 GM in NS 1,000 ML IV SCH ×2 (00:16→10:46)
[2016-08-26 00:28] LABS: BASE EXCESS -14.9 mEq/L (-2.5-2.5); BICARBONATE 15 mEq/L (22-26); IONIZED CALCIUM 1.08 MMOL/L (1.12-1.30); MEASURED OXYGEN SATURATION 90 % (92-95); PCO2 58 mmHg (34-38); PO2 80 mmHg (65-75); TCO2 17 mEq/L (23-27)
[2016-08-26 00:30] LABS: END TIDAL CO2 40; TOTAL RATE 26
[2016-08-26 00:41] LABS: ANION GAP 23 mEq/L (8-16); CALCIUM 7.1 mg/dL (8.5-10.4); CARBON DIOXIDE 16 mEq/l (22-31); CHLORIDE 94 mEq/L (97-110); GLOMERULAR FILTRATION RATE 26; GLUCOSE 160 mg/dL (70-100); MAGNESIUM 2.6 mg/dL (1.6-2.3); POTASSIUM 5.5 mEq/L (3.5-5.2); SODIUM 133 mEq/L (134-144)
[2016-08-26 01:45] LABS: TOXIC GRANULATION PRESENT; TOXIC VACUOLIZATION PRESENT
[2016-08-26 01:46] LABS: GIANT PLATELETS PRESENT; LARGE PLATELETS PRESENT; PLATELET ESTIMATE ADEQUATE (ADEQ)
[2016-08-26 01:48] LABS: HYPOCHROMIA 1+; MACROCYTES 1+; MICROCYTES 1+; POLYCHROMASIA 1+
[2016-08-26 01:58] LABS: INR 2.52 (0.83-1.16); PROTIME(PATIENT) 27.4 SEC (12.0-15.0)
[2016-08-26 01:59] LABS: APTT 51.2 SEC (23.0-38.0)
[2016-08-26 02:28] LABS: BASE EXCESS -17.1 mEq/L (-2.5-2.5); BICARBONATE 12 mEq/L (22-26); IONIZED CALCIUM 0.99 MMOL/L (1.12-1.30); MEASURED OXYGEN SATURATION 96 % (92-95); PCO2 44 mmHg (34-38); PO2 109 mmHg (65-75); TCO2 13 mEq/L (23-27)
[2016-08-26 02:41] LABS: ASSIST CONTROL YES
[2016-08-26 02:44] LABS: END TIDAL CO2 30; O2 CONCENTRATIION 100 % (0-100); P/F RATIO 109 RATIO; TOTAL RATE 30
--- NOTE | 2016-08-26 02:47 | PDINTPN ---
Weather Algorithm Scientist Progress Note Assessment/Plan: Assessment/plan: 51 F with PMH of "colitis," anal fissures, GI fistulas, LGIB, "parasitic GI infections," and FH Crohns admitted 08/07/16 with SOB and hypoxia and found to have large PE. Because of evidence of RV strain she was given TPA followed by UFH which she tolerated well until about 08/20 when she developed LGIB. On 08/21 she had a sudden change in status with increased HR, decreased BP, increased lactate, and increasing hypoxia. A CXR/abdominal CT were consistent with viscous perforation and she was taken emergently to the OR for hemicolectomy. UFH held and IVC filter placed. Just prior to her CT she had a witnessed aspiration event, and returned from the OR on a vent. Hospital course was also complicated by a spontaneous PTX on 08/16, thought to be 2/2 a pulmonary infarct. She has required pressors since the OR as well. * Refractory hypotension- pt stable around 1600 after started HCO3 drip for hyperkalemia, however her repeat labs at 1700 showed K 6.1 and trop 0.28. An HD cath was placed at 1900 anticipating CRRT for worsening creatinine and transition from oliguria to anuria. At 2100 her serum HCO3 had dropped to 14, her creatinine was rising and dopamine was added to her BP regimen (already on levo/vaso). By 2200 Phenylephrine was also added. A repeat CXR at 2200 showed no significant change. Two amps of HCO3 were pushed around [id number], when her WBC was found to be up to 24 from 15, but her HCT remained stable. A repeat ABG at 0015 showed 7.04-58-80-17 with a lactate of 12 on [id number] peep. An EKG shows possible [address] depression in v5-6 I have increased her RR to 30, and added epinephrine, and plan to wean off DA and maybe andrew if her BP tolerates it in hopes of improving splanchnic blood flow. Hydrocortisone also added at stress dose. Not clear if resuming a heparin drip would provide any benefit. Surgery notified for additional ideas since i suspect her primary issue is GI. She is at extremely high risk of for operative management at this time (and possibly without it). Case reviewed with Dr. Griffith. * * Peritonitis s/p bowel perforation, hemicolectomy and liver biopsy for suspicious lesion. Lactate falling, though slowly. WBC stable around 15. Additional bloody BM so UFH held. * Aspiration- she likely aspirated at time of PO contrast prior to OR. Should be adequately covered on current Abx. CXR looks better to me today * Respiratory failure with hypoxia- 2/2 above plus PE and PTX. Vent day #4. Improving with drop in fio2 to 50 today. Higher peep MAY have resuilted in greater loss of TV. Normal pH now, therefore not a contributor to hyperkalemia. A TV of 550 may increase her risk for ALI. 8 ml/kg would be 450 so lowered that today. Ve about the same * PE s/p TPA. IVC filter placed and anticoagulation held. Resume heparin drip when able. She had difficulty achieving a therapeutic level previously- if this remains a problem may try an alternate such as argatroban. Once stable will need to have IVC filter removed * PTX presumably from pulmonary infarct. Still with CT leak. 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 Await path report. TPN held * LGIB 2/2 presumed ischemic colitis. Cdiff ruled out * Anemia - transfuse Hgb <7.0 * LUAN- as above. Started CRRT. * * * critical care time from [id number] Objective: Vital Signs Temp Pulse Resp BP Pulse Ox 37.3 C 116 H 26 H 96/73 L 93 08/25/16 13:00 08/25/16 23:58 08/25/16 23:58 08/25/16 18:00 08/25/16 23:58 Microbiology 08/21/16 21:40 Gram Stain - Final Peritoneal Fluid - Swab Laboratory Results 08/25/16 23:16 08/26/16 00:15 08/24/16 08/25/16 08/26/16 05:59 05:59 05:59 Intake Total 7062 3118.3 1878 Output Total 1100 590 280 Balance 5962 2528.3 1598 PT 27.4 SEC (12.0-15.0) H 08/26/16 00:15 INR 2.52 (0.83-1.16) H 08/26/16 00:15 ICD10 Worksheet Patient Problems: Problems Problem Status Diagnosed Dehydration Acute Pulmonary embolism Acute Anemia Acute C. difficile diarrhea Acute 04/21/16 Superficial thrombophlebitis Acute
[2016-08-26 03:03] LABS: POTASSIUM 4.9 mEq/L (3.5-5.2)
[2016-08-26 03:19] LABS: TROPONIN I 0.299 ng/mL (0-0.034)
[2016-08-26] MEDS: PHENYLEPHRINE HCL 50 MG in D5W 250 ML IV SCH (03:40)
[2016-08-26 04:12] LABS: IONIZED CALCIUM 0.86 MMOL/L (1.12-1.30)
[2016-08-26 04:21] LABS: POTASSIUM 4.7 mEq/L (3.5-5.2)
[2016-08-26] MEDS: HYDROCORTISONE 100 MG/2 ML VIAL IVP SCH ×3 (04:27→14:03)
[2016-08-26] MEDS: SODIUM BICARBONATE 150 MEQ in D5W 1,000 ML IV SCH ×2 (04:35→11:14)
[2016-08-26] MEDS: NOREPINEPHRINE BITARTRATE 16 MG in NS 250 ML IV SCH ×2 (04:36→11:09)
[2016-08-26] MEDS ORDERED: HYDROCORTISONE 100 MG/2 ML VIAL IVP SCH (06:00)
[2016-08-26 06:17] LABS: BASE EXCESS -19.2 mEq/L (-2.5-2.5); BICARBONATE 11 mEq/L (22-26); END TIDAL CO2 27; MEASURED OXYGEN SATURATION 96 % (92-95); PCO2 43 mmHg (34-38); PO2 111 mmHg (65-75); TCO2 12 mEq/L (23-27)
[2016-08-26 06:18] LABS: TOTAL RATE 32
[2016-08-26] MEDS: INSULIN REGULAR, HUMAN 100 UNIT/1 ML VIAL STANDARD SC SCH ×4 (06:18→14:02)
[2016-08-26 06:19] LABS: ABSOLUTE NRBC COUNT 0.37 10^3/uL (0-0.01); ADD DIFF? YES; ATYPICAL LYMPHOCYTE FLAG 40 (0-99); FRAGMENT RBC FLAG 0 (0-99); HEMATOCRIT 28.3 % (38.0-47.0); HEMOGLOBIN 8.3 g/dL (12.6-16.3); LIPEMIA HEMOLYSIS FLAG 70 (0-99); MEAN CELL HEMOGLOBIN 31.9 pg (27.9-34.1); MEAN CELL HEMOGLOBIN CONCENTR. 29.3 g/dL (32.4-36.7); MEAN CELL VOLUME 108.8 fL (81.5-99.8); PLATELET CLUMPS FLAG 10 (0-99); PLATELET COUNT 80 10^3/uL (150-400); RED CELL DISTRIBUTION WIDTH 18.4 % (11.5-15.2)
[2016-08-26 06:21] LABS: IONIZED CALCIUM 0.92 MMOL/L (1.12-1.30)
[2016-08-26 06:22] LABS: ADD MORPH? NO; ADD SCAN? NO; LEFT SHIFT FLG 180 (0-99); NRBC-AUTO% 1.4 % (0.0-0.2)
[2016-08-26 06:30] LABS: ALANINE AMINOTRANSFERASE 52 IU/L (9-52); ALBUMIN 2.9 g/dL (3.5-5.0); ALKALINE PHOSPHATASE 26 IU/L (38-126); ANION GAP 24 mEq/L (8-16); ASPARTATE AMINOTRANSFERASE 173 IU/L (14-46); BILIRUBIN,TOTAL 16.9 mg/dL (0.1-1.4); CALCIUM 6.6 mg/dL (8.5-10.4); CARBON DIOXIDE 11 mEq/l (22-31); CHLORIDE 97 mEq/L (97-110); CREATININE 1.4 mg/dL (0.6-1.0); GLOMERULAR FILTRATION RATE 39; GLUCOSE 226 mg/dL (70-100); LACTATE DEHYDROGENASE 1561 IU/L (313-618); POTASSIUM 4.7 mEq/L (3.5-5.2); SODIUM 132 mEq/L (134-144); TOTAL PROTEIN 6.1 g/dL (6.3-8.2); TRIGLYCERIDE 165 mg/dL (35-135)
[2016-08-26 06:40] LABS: BILIRUBIN-CONJUGATED 15.8 mg/dL (0.0-0.5); BILIRUBIN-UNCONJUGATED 1.1 mg/dL (0.0-1.1)
[2016-08-26 07:08] LABS: GIANT PLATELETS PRESENT; LARGE PLATELETS PRESENT
[2016-08-26 07:09] LABS: TOXIC GRANULATION PRESENT; TOXIC VACUOLIZATION PRESENT
[2016-08-26 07:10] LABS: PLATELET ESTIMATE DECREASED (ADEQ)
[2016-08-26 07:11] LABS: HYPOCHROMIA 1+; MACROCYTES 1+; MICROCYTES 1+; POLYCHROMASIA 1+
[2016-08-26] MEDS: PIPERACILLIN SODIUM/TAZOBACTAM 3.375 GM in D5W 50 ML IV SCH ×2 (07:29→11:53)
[2016-08-26] MEDS ORDERED: SODIUM BICARBONATE 50 MEQ/50 ML SYR IVP ONE (07:30)
[2016-08-26] MEDS ORDERED: NA BICARBONATE 50 MEQ/50 ML VIAL ONE (07:35)
[2016-08-26] MEDS ORDERED: NA BICARBONATE 50 MEQ/50 ML VIAL IV ONE (08:00)
[2016-08-26] MEDS ORDERED: EPINEPHrine 8 MG in NS 250 ML IV SCH (08:00)
[2016-08-26] MEDS: CHLORHEXIDINE GLUCONATE 15 ML UDL PO SCH (08:01)
[2016-08-26] MEDS: PHENYLEPHRINE HCL 50 MG in NS 250 ML IV SCH ×2 (08:21→13:13)
--- NOTE | 2016-08-26 08:25 | CPEKG ---
Heart Rate: 101 RR Interval: 594 P-R Interval: 156 QRSD Interval: 74 QT Interval: 324 QTC Interval: 420 P [place]: 52 QRS [place]: 60 T Wave [place]: 51 EKG Severity - ABNORMAL ECG - EKG Impression: SINUS TACHYCARDIA EKG Impression: LOW VOLTAGE IN FRONTAL LEADS EKG Impression: BORDERLINE R WAVE PROGRESSION, ANTERIOR LEADS EKG Impression: BORDERLINE T ABNORMALITIES, ANT-LAT LEADS Electronically Signed By: Urszula Wilder 26-Aug-2016 12:20:07
[2016-08-26] MEDS: MICAFUNGIN NA 100 MG in NS 100 ML IV SCH (08:40)
[2016-08-26] MEDS: VASOPRESSIN/DEXTROSE 250 ML IV SCH (09:00)
--- NOTE | 2016-08-26 09:23 | HOSPPROG ---
Hospitalist Progress Note Assessment/Plan: 51-year-old female who has had problems with diarrhea and weight loss for 6 months presenting with severe pulmonary embolism status post tPA and then developed hydro pneumothorax most likely due to pulmonary infarction low uop: crrt started acidosis w rising lactate despite crrt: portends near certain mortality ? is whether this isolated colonic ischemia vs total body hypoperfusion former would be amenable to colonic resection. that said, her likelihood of surviving that surgery is low plan of care: family discussing withdrawal of care stat repeat echo to be performed to eval cardiac function 65' crit care Acute transverse colon perforation - patient taken for emergent IVC filter and then intraoperative repair with Dr. Torres Patient with partial colectomy and ileostomy- colonic biopsy and wedge liver biopsy pending bloody stool yesterday concerning for colonic ischemia that said, lactate trending down follow completion colectomy very high risk hyperkalemia: 1. stop K protocol 2. hemolysis labs P 3. K containing tpn stopped 4. renal function noted hypotension: check limited echo elevated bilirubin: check ruq u/s at risk for acalculous cholecystitis acute ptx/pleural effusion s/p chest tubes - suspect d/t infarcted lung from PE - CXR (personally reviewed and interpreted) L chest tubes and airspace disease oxygen saturations 96% on 50% Fio2 on ventilator - continue chest tubes for surgery- decreased section today acute PE status post tPA- certainly chronic component to the VTE - IVC filter placed - heparin drip on hold until cleared by surgery- will wait til 08/25 given bloody stool acute hypoxic respiratory failure - worsened again post-ptx- as above anasarca - suspect secondary to chronic diarrhea - continue intermittent albumin for hypotension severe protein calorie malnutrition - dietary following, previous calorie count in progress- pre albumin is very low - continue TPN - NPO postoperative elevated INR- presumed due to malnutrition- given small doses of vitamin K upon initial presentation to reverse- INR 2.07 this morning check fibrinogen at risk for dic chronic diarrhea- family history of Crohn's- visual inspection by surgery overnight highly suspicious for ulcerative colitis - biopsies pending - gastroenterology following - can initiate treatment when diagnosis made anemia- status post transfusion x 3 units packed red blood cells since admission - monitor daily history of hemorrhoid/anal fissure FCFT prophylaxis on hold postop # diet NPO with TPN # disposition greater than 2 midnights as patient is critically ill requiring ventilatory support I have discussed the case with Dr. Márquez- will keep the patient ventilated today as she recovers from acute perforation yesterday Subjective: significant clinical deterioration overnight. progressive acidosis and hypotension overnight. 60' spent at bedside. case d/w keli garcia, shahla, edison, paolo. tele: no VT (interp by me) Objective: Vital Signs Temp Pulse Resp BP Pulse Ox 35.3 C L 95 33 H 60/56 L 90 L 08/26/16 08:00 08/26/16 08:45 08/26/16 08:45 08/26/16 08:00 08/26/16 08:45 Microbiology 08/21/16 21:40 Gram Stain - Final Peritoneal Fluid - Swab Laboratory Results 08/26/16 06:05 08/26/16 06:05 08/25/16 08/26/16 08/27/16 05:59 05:59 05:59 Intake Total 3118.3 4114.2 Output Total 590 280 Balance 2528.3 3834.2 PT 27.4 SEC (12.0-15.0) H 08/26/16 00:15 INR 2.52 (0.83-1.16) H 08/26/16 00:15 - Physical Exam Constitutional: other (sedated, unresponsive) Eyes: icteric sclera Ears, Nose, Mouth, Throat: moist mucous membranes, hearing normal Cardiovascular: regular rate and rhythym, other (distant hear sounds) Respiratory: no respiratory distress, no rales or rhonchi Gastrointestinal: other (distended, absent bowel sounds. no blood in ileostomy or mucus fistula) Genitourinary: mendiola in urethra, other (no urine) Musculoskeletal: No full muscle strength, No no muscle tenderness Neurologic: No AAOx3, No sensation intact bilaterally Psychiatric: other (unresponsive) Lymph, Heme, Immunologic: no cervical LAD ICD10 Worksheet Patient Problems: Problems Problem Status Diagnosed Dehydration Acute Pulmonary embolism Acute Anemia Acute C. difficile diarrhea Acute 04/21/16 Superficial thrombophlebitis Acute
--- NOTE | 2016-08-26 09:58 | SOAPPROG ---
SOAP Progress Note Assessment/Plan: Assessment: 51yo female s/p colectomy/ileostomy/mucous fistula for spontaneous perforation, admitted originally for PE s/p chest tubes. History of chronic diarrhea, possible ulcerative colitis. Lung infarct. Refractory hypotension, on pressors, acidosis likely secondary to hypoperfusion although bowel ischemia possible. Increased INR PE intubated, anasarca abdomen distended, midline stapled incision leaking small amount of ascites, mucous fistula and ostomy appear pink/viable non-ischemic Plan: seen by Dr Dominguez surgery not being considered at this time. 08/26/16 09:52 Objective: Vital Signs Temp Pulse Resp BP Pulse Ox 35.3 C L 95 30 H 58/54 L 91 L 08/26/16 08:00 08/26/16 09:00 08/26/16 09:00 08/26/16 09:00 08/26/16 09:00 Microbiology 08/21/16 21:40 Gram Stain - Final Peritoneal Fluid - Swab Laboratory Results 08/26/16 06:05 08/26/16 06:05 08/25/16 08/26/16 08/27/16 05:59 05:59 05:59 Intake Total 3118.3 4114.2 Output Total 590 280 Balance 2528.3 3834.2 PT 27.4 SEC (12.0-15.0) H 08/26/16 00:15 INR 2.52 (0.83-1.16) H 08/26/16 00:15 ICD10 Worksheet Patient Problems: Problems Problem Status Diagnosed Dehydration Acute Pulmonary embolism Acute Anemia Acute C. difficile diarrhea Acute 04/21/16 Superficial thrombophlebitis Acute
--- NOTE | 2016-08-26 11:11 | SOAPPROG ---
SOAP Progress Note Assessment/Plan: Assessment/Plan: LUAN: oliguric with hyperkalemia and acidemia. - Will continue CRRT. - Will continue to monitor labs closely while on CRRT. - Using citrate. - Will attempt to pull fluid when BP is more stable. Hyperkalemia: improved with CRRT, will continue to monitor. Acidemia: severe with pH of 7.01 despite starting CRRT, also with large lactic acidosis. - Giving bicarb with CRRT. - Will increase CRRT prescription to attempt more lactate removal. - Will continue to monitor ABG and lactate. Shock: pt on multiple pressors at large doses. Subjective: Pt started on CRRT but remains acidemic with pH of 7.01, on 5 pressors at max doses and continues to be hypotensive. Have been barely able to keep net even overnight. Objective: Vital Signs Temp Pulse Resp BP Pulse Ox 35.5 C L 94 30 H 77/56 L 97 08/26/16 10:00 08/26/16 10:00 08/26/16 10:00 08/26/16 10:00 08/26/16 10:00 Microbiology 08/21/16 21:40 Gram Stain - Final Peritoneal Fluid - Swab Laboratory Results 08/26/16 06:05 08/26/16 06:05 08/25/16 08/26/16 08/27/16 05:59 05:59 05:59 Intake Total 3118.3 4114.2 Output Total 590 280 Balance 2528.3 3834.2 PT 27.4 SEC (12.0-15.0) H 08/26/16 00:15 INR 2.52 (0.83-1.16) H 08/26/16 00:15 General: sedated, no acute distress OP: intubated CV: RRR Resp: intubated and on vent Ext: +3 anasarca Neuro: obtunded ICD10 Worksheet Patient Problems: Problems Problem Status Diagnosed Dehydration Acute Pulmonary embolism Acute Anemia Acute C. difficile diarrhea Acute 04/21/16 Superficial thrombophlebitis Acute
[2016-08-26 11:58] VITALS: TEMP 96.7
[2016-08-26 11:59] LABS: ADD DIFF? YES; ADD MORPH? NO; ATYPICAL LYMPHOCYTE FLAG 30 (0-99); FRAGMENT RBC FLAG 0 (0-99); HEMATOCRIT 31.1 % (38.0-47.0); HEMOGLOBIN 9.4 g/dL (12.6-16.3); LIPEMIA HEMOLYSIS FLAG 80 (0-99); MEAN CELL HEMOGLOBIN 30.6 pg (27.9-34.1); MEAN CELL HEMOGLOBIN CONCENTR. 30.2 g/dL (32.4-36.7); MEAN CELL VOLUME 101.3 fL (81.5-99.8); MEAN PLATELET VOLUME 13.9 fL (8.7-11.7); PLATELET CLUMPS FLAG 0 (0-99); PLATELET COUNT 57 10^3/uL (150-400); RED BLOOD CELL COUNT 3.07 10^6/uL (4.18-5.33); RED CELL DISTRIBUTION WIDTH 18.6 % (11.5-15.2)
[2016-08-26 12:00] LABS: ADD SCAN? NO; LEFT SHIFT FLG 220 (0-99)
[2016-08-26 12:02] LABS: ASSIST CONTROL YES
[2016-08-26 12:03] LABS: O2 CONCENTRATIION 100 % (0-100); TOTAL RATE 30
[2016-08-26 12:04] LABS: BASE EXCESS -13.9 mEq/L (-2.5-2.5); BICARBONATE 15 mEq/L (22-26); IONIZED CALCIUM 0.86 MMOL/L (1.12-1.30); MEASURED OXYGEN SATURATION 99 % (92-95); P/F RATIO 158 RATIO; PCO2 44 mmHg (34-38); PO2 158 mmHg (65-75); TCO2 16 mEq/L (23-27)
[2016-08-26 12:18] LABS: ANION GAP 20 mEq/L (8-16); CALCIUM 6.3 mg/dL (8.5-10.4); CARBON DIOXIDE 16 mEq/l (22-31); CHLORIDE 98 mEq/L (97-110); CREATININE 1.2 mg/dL (0.6-1.0); GLOMERULAR FILTRATION RATE 47; GLUCOSE 202 mg/dL (70-100); MAGNESIUM 1.7 mg/dL (1.6-2.3); POTASSIUM 4.3 mEq/L (3.5-5.2); SODIUM 134 mEq/L (134-144)
[2016-08-26 13:02] LABS: HYPOCHROMIA 1+; MACROCYTES 1+; MICROCYTES 1+; PLATELET ESTIMATE DECREASED (ADEQ); TOXIC VACUOLIZATION PRESENT
--- NOTE | 2016-08-26 13:13 | ECHO ---
[id number] + + [address] : : [place] [address] : : [phone] + + Adult Echocardiographic Report + ----+ :Name: EROS MOORE JStudy Date: 08/26/2016 09:19 AM : : Hospital Admission Number: [id number] Location: 249: :: 1965 Gender: Female Height: 65 in : :Age: 51 yrs Race: WH Weight: 210 lb : :Reason For Study: Eval LV Fx : : BSA: 2.0 meters2 : :History: Cardiogenic shock, Progressive lactic acidosis. : + ----+ MMode/2D Measurements & Calculations IVSd: 0.80 cm LVIDd: 4.4 cm FS: 9.1 % LVPWd: 0.67 cm LVIDs: 4.0 cm EDV(Teich): 88.9 ml ESV(Teich): 71.0 ml EF(Teich): 20.2 % Normal Measurement Values: + + :LVIDd (3.5-5.7cm) IVSd (0.6-1.1cm) LVPWd (0.6-1.1cm) Aortic Root (2.0-3.7cm)Left Atrium (1.5-4.0cm): :LV Vol(d) (76-115ml) LV Vol(s) (29-48ml) Ejec Fraction (50-65%)PV Dimitris (0.6- 1.2m/s) TV Dimitris (0.4-1.0m/s) : :MV E Dimitris (0.8-1.0m/s)MV A Dimitris (0.3-1.0m/s)LVOT Dimitris (0.7-1.2m/s) Asc Ao Dimitris ( 0.9-1.8m/s) : + + Doppler Measurements & Calculations TR max dimitris: 291.8 cm/sec TR max P.1 mmHg RAP systole: 15.0 mmHg RVSP(TR): 49.1 mmHg Left Ventricle Ejection Fraction = 20%. The left ventricular ejection fraction is calculated at 20.2 %. Flattened septum is consistent with RV pressure/volume overload. Pericardium/Pleural There is a moderate pleural effusion. Conclusion This is a limited echo to evaluate for LV function. (1) Left ventricular systolic ejection fraction was severely reduced (20%) - global hypokinesis (2) Moderate pleural effusion. Final Reading Physician: Elham Serrano signed on 08/26/2016 01:12 PM Ordering Physician: Benitez Fuentes Performed By: Cyrus Myrick, RDCS
[2016-08-26] MEDS ORDERED: ALBUMIN 25% 100 ML IV ONE (14:00)
[2016-08-26] MEDS ORDERED: REPL FLUID TYPE D CAPS 1 EA in WATER FOR INJECTION,STERILE 4,000 ML DIAL SCH (14:30)
[2016-08-26] MEDS: LORazepam 2 MG/ML INJ IVP PRN ×3 (15:09→17:41)
[2016-08-26 15:23] VITALS: BP 49/41; RESP 32
--- NOTE | 2016-08-26 15:32 | PDINTPN ---
[employer] Progress Note Assessment/Plan: Assessment: * Peritonitis s/p bowel perforation, hemicolectomy and liver biopsy for suspicious lesion. Lactate markedly elevated, WBC climbing. * Aspiration- she likely aspirated at time of PO contrast prior to OR. Should be adequately covered on current Abx. CXR looks better to me today * Respiratory failure with hypoxia- 2/2 above plus PE and PTX. Vent day #5. On 100% oxygen. Higher peep MAY have resuilted in greater loss of TV. Normal pH now , therefore not a contributor to hyperkalemia. A TV of 550 may increase her risk for ALI. 8 ml/kg would be 450 so lowered that today. Ve about the same * PE s/p TPA. IVC filter placed and anticoagulation held. Resume heparin drip when able. She had difficulty achieving a therapeutic level previously- if this remains a problem may try an alternate such as argatroban. Once stable will need to have IVC filter removed * PTX presumably from pulmonary infarct. Still with CT leak. 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 Await path report. TPN held * LGIB 2/2 presumed ischemic colitis. Cdiff ruled out * Anemia - transfuse Hgb <7.0 * LUAN- as above. Started CRRT. She continues to have refractory metabolic acidosis. I have adjusted her ventilator, but there is little room to improve CO2 clearance with the ventilator. Plan: I had 4 conversations with the patient's mother and siblings, along with Dr. Fuentes, throughout the day regarding the critical and worsening nature of her illness. I've also discussed the case with Dr. Dominguez and the rest of the interdisciplinary team. Her clinical course strongly suggests ongoing ischemia which could be mesenteric but also could be diffuse ischemia to other tissue/ organs. Given her multi-system organ failure and refractory hypotension and shock despite multiple pressors, her prognosis is very grim. Her family understands this. We discussed the possibility of putting a scope into her ileostomy and mucous fistula to determine if she has an area of ischemia that could be addressed surgically, but I feel that surgery would be heroic at this point with little chance of survival. The family understands and is considering withdrawal of therapy. 65 minutes critical care time 08/26/16 15:48 Subjective: Unresponsive. Objective: Vital Signs Temp Pulse Resp BP Pulse Ox 35.9 C L 95 32 H 49/41 L 63 L 01/30/17 11:00 08/26/16 15:00 08/26/16 15:00 08/26/16 15:00 08/26/16 15:00 Microbiology 08/21/16 21:40 Gram Stain - Final Peritoneal Fluid - Swab Laboratory Results 08/26/16 11:45 08/26/16 11:45 08/25/16 08/26/16 08/27/16 05:59 05:59 05:59 Intake Total 3118.3 4114.2 Output Total 590 280 Balance 2528.3 3834.2 PT 27.4 SEC (12.0-15.0) H 08/26/16 00:15 INR 2.52 (0.83-1.16) H 08/26/16 00:15 Physical Exam - Physical Exam General Appearance: no apparent distress, No alert EENT: scleral icterus (R), scleral icterus (L) Neck: normal inspection Respiratory: lungs clear Cardiac/Chest: regular rate, rhythm, edema (3+ bilateral) Abdomen: normal bowel sounds, non-tender Skin: warm/dry, jaundice, No normal color Extremities: normal inspection Neuro/Psych: other (pupils dilated, minimall resopnsive, disconjugate gaze.), No alert ICD10 Worksheet Patient Problems: Problems Problem Status Diagnosed Dehydration Acute Pulmonary embolism Acute Anemia Acute C. difficile diarrhea Acute 04/21/16 Superficial thrombophlebitis Acute
[2016-08-26 16:09] VITALS: PULSE 87; O2SAT 62
--- NOTE | 2016-08-26 16:15 | SOAPPROG ---
SOAP Progress Note Assessment/Plan: Assessment/Plan: 1. Chronic diarrhea. Colitis, with perforation, found. Etiology unclear ( ischemic vs. IBD, etc.). - surgical pathology pending 2. Hepatomegaly seen at time of surgery, with fat infiltration, with ascites. However, on adm'x, essentially normal LFTs. I suspect she may have some fatty liver, but for the most part, not clinically significant prior to adm'x. Here in the hospital, with her multi-organ problems, I suspect she then developed some decompensation. As she hopefully improves, this should improve. - wedge liver bx pending 3. Elevated TB. Suspect jaundice of sepsis/multiorgan failure only (with some possible decompensation from fatty liver). Normal on adm'x, and although gallstones, normal ducts and essentially normal LFTs otherwise. 4. Multiorgan failure, worsening. Very poor prognosis. Family considering withdrawal of care. At this juncture, we will follow informally only. Surgical pathology pending, but with her moribund multiorgan failure, doubt the result will alter care. Please call otherwise if we can be of further help [phone]. 08/26/16 16:12 Subjective: cc: diarrhea Intubated, sedated, unable to obtain history. Objective: Vital Signs Temp Pulse Resp BP Pulse Ox 35.9 C L 87 32 H 49/41 L 62 L 08/26/16 11:00 08/26/16 16:00 08/26/16 15:00 08/26/16 15:00 08/26/16 16:00 Microbiology 08/21/16 21:40 Gram Stain - Final Peritoneal Fluid - Swab Laboratory Results 08/26/16 11:45 08/26/16 11:45 08/25/16 08/26/16 08/27/16 05:59 05:59 05:59 Intake Total 3118.3 4114.2 Output Total 590 280 Balance 2528.3 3834.2 PT 27.4 SEC (12.0-15.0) H 08/26/16 00:15 INR 2.52 (0.83-1.16) H 08/26/16 00:15 RUQ US with HM and probable fatty liver; normal IH ducts; increased GB wall thickening. CT A/P without showing anasarca and moderate ascites. TB increased to 16.9 Physical Exam - Physical Exam General Appearance: unresponsive, No alert EENT: PERRL/EOMI, normal ENT inspection, pharynx normal, TMs normal Neck: non-tender, full range of motion, supple, normal inspection Respiratory: chest non-tender, lungs clear, normal breath sounds Cardiac/Chest: normal peripheral pulses, regular rate, rhythm Peripheral Pulses: 2+: carotid (R), carotid (L), femoral (R), femoral (L), dorsalis-pedis (R), dorsalis-pedis (L) Abdomen: soft (-ostomies in place) Pelvic Exam: deferred Rectal: deferred Back: Normal inspection Skin: normal color, warm/dry Lymphatic: no adenopathy Extremities: normal range of motion, non-tender, normal inspection, normal capillary refill Neuro/Psych: No alert (Sedated) ICD10 Worksheet Patient Problems: Problems Problem Status Diagnosed Dehydration Acute Pulmonary embolism Acute Anemia Acute C. difficile diarrhea Acute 04/21/16 Superficial thrombophlebitis Acute
[2016-08-27 14:13] LABS: HEPATITIS Bs Ab QUANT <5.0 mIU/mL (())
--- NOTE | 2016-08-28 11:38 | GDS ---
[f rep st] DISCHARGE SUMMARY DATE OF : 08/26/2016 CAUSE OF : Bradycardia, cardiac arrest. DIAGNOSES: 1. Likely inflammatory bowel disease, untreated. 2. Massive pulmonary embolus, requiring lytics. 3. Hydropneumothorax. 4. Perforated colon with Escherichia coli peritonitis. 5. 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 6. Global systolic left ventricle dysfunction, likely secondary to sepsis. 7. Septic shock. 8. Aneuric renal failure. 9. Hepatic dysfunction. HOSPITAL COURSE: Please see admission history and physical by Dr. Dell Singleton. The patient presented on the with a PE. She received lytics. She was hospitalized. She had a pneumothorax. She subsequently developed an acute abdomen and underwent emergent surgical resection on the . Her postoperative course was initially fairly stable, but then she developed decreasing urine output. She had a persistent pressor requirement. Ultrasound showed a hypokinetic LV with an EF of 20%. She was seen by Nephrology. CVVH was instituted. Pressors were escalated. The patient continued to do poorly with metabolic acidosis consistent with global hyperperfusion. The patient withdrew care. The patient about an hour later. /[id number]/MODL MTDD
== END 2016-08-27 00:54 | disposition expired | DRG 166 ==
LOC: F2N 20:37 → F1N 08-12 23:45 → F2N 08-16 01:35
PROVIDERS: ADMIT Student in an Organized Health Care Education/Training Program; ATTEND Internal Medicine
PROC: 02HV33Z Insertion of Infusion Device into Superior Vena Cava, Percutaneous Approach (ICD-10-PCS; principal; 2016-08-07)
PROC: 3E06317 Introduction of Other Thrombolytic into Central Artery, Percutaneous Approach (ICD-10-PCS; principal; 2016-08-07)
PROC: 30233N1 Transfusion of Nonautologous Red Blood Cells into Peripheral Vein, Percutaneous Approach (ICD-10-PCS; 2016-08-13)
PROC: 0W9930Z Drainage of Right Pleural Cavity with Drainage Device, Percutaneous Approach (ICD-10-PCS; 2016-08-16)
PROC: 0W9930Z Drainage of Right Pleural Cavity with Drainage Device, Percutaneous Approach (ICD-10-PCS; 2016-08-16)
PROC: 0W9930Z Drainage of Right Pleural Cavity with Drainage Device, Percutaneous Approach (ICD-10-PCS; 2016-08-17)
PROC: 3E0G36Z Introduction of Nutritional Substance into Upper GI, Percutaneous Approach (ICD-10-PCS; 2016-08-20)
PROC: 06H03DZ Insertion of Intraluminal Device into Inferior Vena Cava, Percutaneous Approach (ICD-10-PCS; 2016-08-21 17:45)
PROC: 0D1B0Z4 Bypass Ileum to Cutaneous, Open Approach (ICD-10-PCS; 2016-08-21 17:45)
PROC: 0FB20ZX Excision of Left Lobe Liver, Open Approach, Diagnostic (ICD-10-PCS; 2016-08-21 17:45)
PROC: 0DBL0ZX Excision of Transverse Colon, Open Approach, Diagnostic (ICD-10-PCS; 2016-08-21 17:45)
PROC: 0DBK0ZX Excision of Ascending Colon, Open Approach, Diagnostic (ICD-10-PCS; 2016-08-21 17:45)
PROC: 5A1955Z Respiratory Ventilation, Greater than 96 Consecutive Hours (ICD-10-PCS; 2016-08-21 17:45)
PROC: 02HV33Z Insertion of Infusion Device into Superior Vena Cava, Percutaneous Approach (ICD-10-PCS; 2016-08-25)
PROC: 5A1D60Z (ICD-10-PCS; 2016-08-25)
DX: I26.09 Other pulmonary embolism with acute cor pulmonale (principal); J94.8 Other specified pleural conditions; I27.2 Other secondary pulmonary hypertension; K52.3 Indeterminate colitis; K63.1 Perforation of intestine (nontraumatic); K65.0 Generalized (acute) peritonitis; B96.20 Unspecified Escherichia coli [E. coli] as the cause of diseases classified elsewhere; A41.9 Sepsis, unspecified organism; R65.21 Severe sepsis with septic shock; J96.01 Acute respiratory failure with hypoxia; N17.9 Acute kidney failure, unspecified; E43 Unspecified severe protein-calorie malnutrition; E87.2 Acidosis; J69.0 Pneumonitis due to inhalation of food and vomit; K76.0 Fatty (change of) liver, not elsewhere classified; D64.9 Anemia, unspecified; R62.7 Adult failure to thrive; Z51.5 Encounter for palliative care
CPT/HCPCS: 81332-90; 81479-90; 82784-90; 82947-QW; 83010-90; 83516-90; 84134-90; 85300-90; 85303-90; 85306-90; 85520-90; 86147-90; 86705-90; 96374; 97116-GP; 97162-GP; 97165-GO; 97530-GO; 97530-GP; 97535-GO; C1751; C1769; G0472; J0171; J0610; J1170; J1250; J1265; J1644; J1650; J1815; J2248; J2250; J2370; J2405; J2543; J2550; J2704; J2997; J3010; J3475; P9016; P9021; P9041; P9047; Q9967